=== PATIENT | female | born 1965 | race Two or more races ===

== ENCOUNTER 2016-09-18 16:00 | Inpatient (IN) | payer OTHER ==
[2016-09-18 18:17] VITALS: BMI 62.8
[2016-09-18] MEDS ORDERED: ACETAMINOPHEN 325 MG TABLET (FP) PO PRN (20:10)
[2016-09-18] MEDS ORDERED: MAGNESIUM HYDROX 2400MG/30ML ORAL SUSPENSION 30 ML CUP PO PRN (20:10)
[2016-09-18] MEDS ORDERED: chlordiazePOXIDE HCL 25 MG CAPSULE PO PRN (20:10)
[2016-09-18] MEDS ORDERED: hydrOXYzine PAMOATE 50 MG CAPSULE (FP) PO PRN (20:10)
[2016-09-18] MEDS ORDERED: MAG HYDROX/AL HYDROX/SIMETH 30 ML UNIT-DOSE CUP PO PRN (20:10)
[2016-09-18] MEDS ORDERED: NICOTINE POLACRILEX 2 MG GUM BC PRN (20:10)
[2016-09-18] MEDS ORDERED: P-EPHED 60MG/TRIPROLIDI 2.5MG TABLET PO PRN (20:10)
[2016-09-18] MEDS ORDERED: MAGNESIUM CITRATE 300 ML BOTTLE PO PRN (20:10)
[2016-09-18] MEDS ORDERED: LOPERAMIDE HCL 2 MG CAPSULE PO PRN (20:10)
[2016-09-18] MEDS ORDERED: MENTHOL/PHENOL 1 EACH UD MM PRN (20:10)
[2016-09-18] MEDS ORDERED: IBUPROFEN 400 MG TABLET (FP) PO PRN (20:10)
[2016-09-18] MEDS ORDERED: diphenhydrAMINE HCL 50 MG CAPSULE PO PRN (20:10)
[2016-09-18] MEDS ORDERED: guaiFENesin/D-METHORPHAN HB 10 ML UNIT-DOSE CUPS PO PRN (20:10)
--- NOTE | 2016-09-18 20:10 | HP ---
[id number] Extend Anxiety: 4-Mod. Anxious/Guarded Agitation: 4-Moderately Restless Paroxysmal Sweats: 1-Minimal Palms Moist Orientation: 0-Oriented Tacttile Disturbances: 0-None Auditory Disturbances: 3-Moderate Harsh/Frighten Visual Disturbances: 0-None Headache: 1-Very Mild CIWA-Ar Total Score: 19 Admission ROS BHS - HPI Chief Complaint: withdrawal sx Allergies/Adverse Reactions: Allergies Allergy/AdvReac Type Severity Reaction Status Date / Time No Known Allergies Allergy Verified 09/18/16 19:43 History of Present Illness: 51 years old female with long history of alcohol cocaine nicotine dependence, hiv, asthma, diabetes ii neuropathy, bipolar ii and positive ppd is admitted to detox Exam Limitations: No Limitations - Ebola screening Have you traveled outside of the country in the last 21 days: No Have you had contact with anyone from an Ebola affected area: No Have you been sick,other than usual withdrawal symptoms: No Do you have a fever: No - Review of Systems Constitutional: Chills, Changes in sleep, Weight Stable EENT: reports: Other (eye glasses) Respiratory: reports: No Symptoms reported Cardiac: reports: No Symptoms Reported GI: reports: Nausea, Poor Fluid Intake, Abdominal cramping : reports: No Symptoms Reported Musculoskeletal: reports: No Symptoms Reported Integumentary: reports: No Symptoms Reported Neuro: reports: Tremors Endocrine: reports: No Symptoms Reported Hematology: reports: No Symptoms Reported Psychiatric: reports: Judgement Intact, Orientated x3, Anxious, Depressed Other Systems: Reviewed and Negative Patient History - Patient Medical History Hx Anemia: No Hx Asthma: Yes Hx Chronic Obstructive Pulmonary Disease (COPD): No Hx Cancer: No Hx Cardiac Disorders: No Hx Congestive Heart Failure: No Hx Hypertension: Yes Hx Hypercholesterolemia: No Hx Pacemaker: No HX Cerebrovascular Accident: No Hx Seizures: No Hx Dementia: No Hx Diabetes: Yes (ON METFORMIN) Hx Gastrointestinal Disorders: No Hx Liver Disease: No Hx Genitourinary Disorders: No Hx Sexually Transmitted Disorders: No (HIV) Hx Renal Disease (ESRD): No Hx Thyroid Disease: No Hx Human Immunodeficiency Virus (HIV): Yes (1996-last cd4 989,vl-undetectable) Hx Hepatitis C: No Hx Depression: No Hx Suicide Attempt: No Hx Bipolar Disorder: Yes Hx Schizophrenia: No - Patient Surgical History Past Surgical History: Yes Hx Neurologic Surgery: No Hx Cataract Extraction: No Hx Cardiac Surgery: No Hx Lung Surgery: No Hx Breast Surgery: No Hx Breast Biopsy: No Hx Abdominal Surgery: Yes (hernia 2014) Hx Appendectomy: No Hx Cholecystectomy: No Hx Genitourinary Surgery: No Hx Section: No Hx Orthopedic Surgery: No Anesthesia Reaction: No - PPD History Previous Implant?: Yes Documented Results: Positive w/proof Implanted On Prior [facility] Admission?: No PPD to be Administered?: No - Reproductive History Patient is a Female of Child Bearing Age (11 -55 yrs old): Yes Last Menstrual Period: 08/18/12 Patient : No - Smoking Cessation Smoking history: Current every day smoker Have you smoked in the past 12 months: Yes Aproximately how many cigarettes per day: 10 Cigars Per Day: 0 Hx Chewing Tobacco Use: No Initiated information on smoking cessation: Yes 'Breaking Loose' booklet given: 09/18/16 - Substance & Tx. History Hx Alcohol Use: Yes Hx Substance Use: Yes Substance Use Type: Alcohol, Cocaine Hx Substance Use Treatment: Yes - Substances Abused Alcohol Route: Oral Frequency: Daily Amount used: liquor- 3 pts, beer-2 six pc, wine 2 liter Age of first use: 23 Date of Last Use: 09/18/16 Cocaine Route: Inhalation Frequency: Daily Amount used: $100 Age of first use: 23 Date of Last Use: 09/17/16 Family Disease History - Family Disease History Family Disease History: Diabetes: Father, Mother Admission Physical Exam BHS - Vital Signs Vital Signs: Vital Signs - 24 hr 09/18/16 18:15 Temperature 98.2 F Pulse Rate 109 H Respiratory 22 Rate Blood Pressure 127/71 - Physical General Appearance: Yes: Appropriately Dressed, Moderate Distress, Obese, Tremorous, Irritable, Sweating, Anxious HEENTM: Yes: Hearing grossly Normal, Normal ENT Inspection, Normocephalic, Normal Voice Respiratory: Yes: Chest Non-Tender, Lungs Clear, Normal Breath Sounds, No Respiratory Distress, No Accessory Muscle Use Neck: Yes: Supple, Trachea in good position Breast: Yes: Breasts Symetrical Cardiology: Yes: Regular Rhythm, S1, S2, Tachycardia Abdominal: Yes: Non Tender, Soft Genitourinary: Yes: Within Normal Limits Back: Yes: Normal Inspection Musculoskeletal: Yes: full range of Motion, Gait Steady Extremities: Yes: Normal Inspection, Normal Range of Motion, Non-Tender, Tremors Neurological: Yes: Fully Oriented, Alert, Motor Strength 5/5, Normal Response Integumentary: Yes: Warm Lymphatic: Yes: Within Normal Limits - Diagnostic (1) Asthma Current Visit: Yes Status: Chronic (2) DM Diabetes mellitus type 2 Current Visit: Yes Status: Chronic (3) Essential hypertension Current Visit: Yes Status: Chronic (4) Human immunodeficiency virus infection Current Visit: Yes Status: Chronic (5) Nicotine dependence Current Visit: Yes Status: Chronic (6) Obesity Current Visit: Yes Status: Chronic (7) Positive PPD, treated Current Visit: Yes Status: Resolved Cleared for Admission [facility] - Detox or Rehab [facility] Level of Care: Medically Managed Detox Regimen/Protocol: Librium [facility] Breath Alcohol Content Breath Alcohol Content: 0 Urine Pregancy Test - Result Urine Test Results: Negative- NO Line Present Urine Drug Screen - Results Drug Screen Negative: No Urine Drug Screen Results: JENNIFER-Cocaine
[2016-09-18] MEDS ORDERED: ALBUTEROL SO4 6.7 GM HFA INHALER IH PRN (20:14)
[2016-09-18] MEDS ORDERED: GABAPENTIN 100 MG CAPSULE (FP) PO SCH (22:00)
[2016-09-18] MEDS: MONTELUKAST NA 10 MG TABLET PO SCH (22:54)
[2016-09-18] MEDS: THIAMINE HCL 100 MG TABLET (FP) PO SCH (22:54)
[2016-09-18] MEDS: GABAPENTIN 300 MG CAPSULE (FP) PO SCH (22:54)
[2016-09-18] MEDS: ATORVASTATIN CA 20 MG TABLET (FP) PO SCH (22:54)
[2016-09-18] MEDS: chlordiazePOXIDE HCL 25 MG CAPSULE PO SCH (22:54)
[2016-09-19] MEDS: GABAPENTIN 300 MG CAPSULE (FP) PO SCH (05:54)
[2016-09-19] MEDS: chlordiazePOXIDE HCL 25 MG CAPSULE PO SCH ×4 (05:54→22:26)
[2016-09-19] MEDS: sitaGLIPtin PHOSPHATE 50 MG TABLET PO SCH (08:23)
[2016-09-19] MEDS: metFORMIN HCL 500 MG TABLET (FP) PO SCH ×2 (08:23→17:50)
--- NOTE | 2016-09-19 09:00 | CONSULT ---
[facility] Psychiatric Consult - Data Date of interview: 09/19/16 Admission source: [facility] Identifying data: This ios 51 years old female with morbid Obesity intoxiocated with : Alcohol, Cocaine and Nicotine Substance Abuse History: - Smoking Cessation. Smoking history: Current every day smoker. Have you smoked in the past 12 months: Yes. Aproximately how many cigarettes per day: 10. Cigars Per Day: 0. Hx Chewing Tobacco Use: No. Initiated information on smoking cessation: Yes. 'Breaking Loose' booklet given : 09/18/16. - Substance & Tx. History. Hx Alcohol Use: Yes. Hx Substance Use : Yes. Substance Use Type: Alcohol, Cocaine. Hx Substance Use Treatment: Yes. - Substances Abused. Alcohol. Route: Oral. Frequency: Daily. Amount used: liquor- 3 pts, beer-2 six pc, wine 2 liter. Age of first use: 23. Date of Last Use: 09/18/16. Cocaine. Route: Inhalation. Frequency: Daily. Amount used: $100. Age of first use: 23. Date of Last Use: 09/17/16 Medical History: Morbid Obesity, Asthma, DM-2, HTN, HIV, PPD+History, Psychiatric History: Patient reports history of ndepression and insomnia, reports taking prior to admission: Trazodone 50mg po qhs. Gabapentin 100mg po bid Physical/Sexual Abuse/Trauma History: Denies Additional Comment: Trazodone 50mg po qhs. Gabapentin 100mg po bid Mental Status Exam - Mental Status Exam Alert and Oriented to: Person Cognitive Function: Fair Patient Appearance: Unkempt Mood: Depressed Affect: Mood Congruent Patient Behavior: Cooperative Speech Pattern: Appropriate Voice Loudness: Mildly Soft/Quiet Thought Process: Circumstantial Thought Disorder: Being Controlled Hallucinations: Denies Suicidal Ideation: Denies Homicidal Ideation: Denies Insight/Judgement: Fair Appetite: Weight gain Muscle strength/Tone: Mild Hypotonicity Gait/Station: Shuffling Additional Comments: Trazodone 50mg po qhs. Gabapentin 100mg po bid Psychiatric Findings - Problem List ([place] 1, 2,3) (1) Nicotine dependence Current Visit: Yes Status: Acute (2) Obesity Current Visit: Yes Status: Chronic (3) Alcohol dependence Current Visit: No Status: Active (4) Cocaine dependence Current Visit: No Status: Active (5) Drug-induced mood disorder Current Visit: Yes Status: Acute - Initial Treatment Plan Initial Treatment Plan: Trazodone 50mg po qhs. Gabapentin 100mg po bid
[2016-09-19] MEDS: ATAZANAVIR SO4 300 MG CAPSULE PO SCH (10:29)
[2016-09-19] MEDS: HYDROCHLOROTHIAZIDE 12.5 MG CAPSULE (FP) PO SCH (10:30)
[2016-09-19] MEDS: LISINOPRIL 5 MG TABLET (FP) PO SCH (10:30)
[2016-09-19] MEDS: PRENATAL VITAMINS W/ FOLIC ACID TABLET (FP) PO SCH (10:30)
[2016-09-19] MEDS: RITONAVIR 100 MG TABLET PO SCH (10:30)
[2016-09-19] MEDS: NICOTINE 14 MG/24 HOURS TOPICAL PATCH TD SCH (10:30)
[2016-09-19] MEDS: GABAPENTIN 100 MG CAPSULE (FP) PO SCH ×2 (10:30→22:25)
[2016-09-19 10:40] LABS: ALBUMIN 3.3 g/dl (3.4-5.0); ANION GAP 7 (8-16); CALCIUM 8.6 mg/dL (8.5-10.1); CO2 30 mmol/L (21-32); COCKROFT - GAULT 247.1205; CREATININE 0.7 mg/dL (0.55-1.02); GLUCOSE,RANDOM 268 mg/dL (74-106); SGOT/AST 12 U/L (15-37)
[2016-09-19 10:43] LABS: ALK PHOS 81 U/L (45-117); BILIRUBIN,TOTAL 1.1 mg/dL (0.2-1.0); SGPT/ALT 18 U/L (12-78); TOT PROT 7.1 g/dl (6.4-8.2)
[2016-09-19 10:54] LABS: MCH 29.2 pg (25.7-33.7); MCHC 33.5 g/dl (32.0-36.0); MEAN CELL VOLUME 87.3 fl (80-96); MEAN PLT VOLUME 7.8 fl (7.5-11.1); PLATELET COUNT 321 K/MM3 (134-434); RDW 16.9 % (11.6-15.6); WHITE BLOOD COUNT 9.2 K/mm3 (4.0-10.0)
[2016-09-19] MEDS: EMTRICITABINE 200MG/TENOFOVIR 300MG PO SCH (11:24)
[2016-09-19 11:49] LABS: URINE APPEARANCE CLEAR; URINE BILIRUBIN NEGATIVE (NEGATIVE); URINE BLOOD NEGATIVE (NEGATIVE); URINE COLOR YELLOW; URINE GLUCOSE (UA) 3+ (NEGATIVE); URINE KETONE NEGATIVE (NEGATIVE); URINE LEUK ESTERASE NEGATIVE (NEGATIVE); URINE NITRITE NEGATIVE (NEGATIVE); URINE PROTEIN NEGATIVE (NEGATIVE); URINE UROBILINOGEN NEGATIVE E.U./dl (0.2-1.0)
--- NOTE | 2016-09-19 12:03 | PN ---
S CIWA - CIWA Score Nausea/Vomitin Muscle Tremors: 3 Anxiety: 3 Agitation: 3 Paroxysmal Sweats: 3 Orientation: 0-Oriented Tacttile Disturbances: 2-Mild Itch/Numbness/Burn Auditory Disturbances: 0-None Visual Disturbances: 0-None Headache: 0-None Present CIWA-Ar Total Score: 16 BHS Progress Note (SOAP) Subjective: INTERRUPTED SLEEP, SWEATS , SHAKES Objective: 09/19/16 12:01 Vital Signs Temperature 97.7 F 09/19/16 06:00 Pulse Rate 82 09/19/16 06:00 Respiratory Rate 18 09/19/16 06:00 Blood Pressure 127/71 09/19/16 06:00 O2 Sat by Pulse Oximetry (%) Laboratory Tests 09/18/16 09/19/16 09/19/16 19:36 05:51 07:00 WBC 9.2 RBC 3.82 Hgb 11.2 D Hct 33.4 MCV 87.3 MCHC 33.5 RDW 16.9 H Plt Count 321 MPV 7.8 Sodium Potassium Chloride Carbon Dioxide Anion Gap BUN Creatinine Creat Clearance w eGFR POC Glucometer 276 237 Random Glucose Calcium Total Bilirubin AST ALT Alkaline Phosphatase Total Protein Albumin Urine Color Urine Appearance Urine pH Ur Specific [place] Urine Protein Urine Glucose (UA) Urine Ketones Urine Blood Urine Nitrite Urine Bilirubin Urine Urobilinogen Ur Leukocyte Esterase 09/19/16 09/19/16 07:00 07:00 WBC RBC Hgb Hct MCV MCHC RDW Plt Count MPV Sodium 136 Potassium 4.0 Chloride 99 Carbon Dioxide 30 Anion Gap 7 L BUN 8 Creatinine 0.7 Creat Clearance w eGFR > 60 POC Glucometer Random Glucose 268 H D Calcium 8.6 Total Bilirubin 1.1 H AST 12 L ALT 18 D Alkaline Phosphatase 81 Total Protein 7.1 Albumin 3.3 L Urine Color Yellow Urine Appearance Clear Urine pH 5.0 Ur Specific [place] 1.030 Urine Protein Negative Urine Glucose (UA) 3+ H Urine Ketones Negative Urine Blood Negative Urine Nitrite Negative Urine Bilirubin Negative Urine Urobilinogen Negative Ur Leukocyte Esterase Negative pt aox3 in nad ambulating 09/19/16 12:02 10/11/16 16:07 Assessment: 09/19/16 12:02 withdrawal sx's dm morbid obesity 10/11/16 16:07 Plan: cont. detox increase fluids cont to monitor bgm
--- NOTE | 2016-09-19 13:12 | EKG ---
Test Reason : Blood Pressure : / mmHG Vent. Rate : 090 BPM Atrial Rate : 090 BPM P-R Int : 142 ms QRS Dur : 086 ms QT Int : 372 ms P-R-T Axes : 068 066 055 degrees QTc Int : 455 ms NORMAL SINUS RHYTHM NORMAL ECG NO PREVIOUS ECGS AVAILABLE Confirmed by SANDY BANKS, RODOLFO ([id number]) on 09/19/2016 1:12:18 PM Referred By: Confirmed By:RODOLFO DELGADO MD
[2016-09-19] MEDS: MONTELUKAST NA 10 MG TABLET PO SCH (22:25)
[2016-09-19] MEDS: THIAMINE HCL 100 MG TABLET (FP) PO SCH (22:25)
[2016-09-19] MEDS: ATORVASTATIN CA 20 MG TABLET (FP) PO SCH (22:25)
[2016-09-19] MEDS: traZODone HCL 50 MG TABLET (FP) PO SCH (22:26)
[2016-09-20] MEDS: metFORMIN HCL 500 MG TABLET (FP) PO SCH ×2 (06:31→17:21)
[2016-09-20] MEDS: chlordiazePOXIDE HCL 25 MG CAPSULE PO SCH ×3 (06:33→17:21)
[2016-09-20] MEDS: sitaGLIPtin PHOSPHATE 50 MG TABLET PO SCH (07:45)
[2016-09-20] MEDS ORDERED: FLUCONAZOLE 50 MG TABLET PO ONE (09:33)
[2016-09-20] MEDS: GABAPENTIN 100 MG CAPSULE (FP) PO SCH ×2 (11:30→22:59)
[2016-09-20] MEDS: PRENATAL VITAMINS W/ FOLIC ACID TABLET (FP) PO SCH (11:30)
[2016-09-20] MEDS: ATAZANAVIR SO4 300 MG CAPSULE PO SCH (11:30)
[2016-09-20] MEDS: LISINOPRIL 5 MG TABLET (FP) PO SCH (11:30)
[2016-09-20] MEDS: HYDROCHLOROTHIAZIDE 12.5 MG CAPSULE (FP) PO SCH (11:30)
[2016-09-20] MEDS: EMTRICITABINE 200MG/TENOFOVIR 300MG PO SCH (11:31)
[2016-09-20] MEDS: RITONAVIR 100 MG TABLET PO SCH (11:31)
[2016-09-20] MEDS: NICOTINE 14 MG/24 HOURS TOPICAL PATCH TD SCH (11:31)
--- NOTE | 2016-09-20 11:57 | PN ---
S CIWA - CIWA Score Nausea/Vomitin Muscle Tremors: 2 Anxiety: 3 Agitation: 2 Paroxysmal Sweats: 3 Orientation: 0-Oriented Tacttile Disturbances: 2-Mild Itch/Numbness/Burn Auditory Disturbances: 0-None Visual Disturbances: 0-None Headache: 0-None Present CIWA-Ar Total Score: 14 S Progress Note (SOAP) Subjective: INTERRUPTED SLEEP SSWEATS, C/O VAG ITCH Objective: 09/20/16 11:55 Vital Signs Temperature 97.9 F 09/20/16 10:02 Pulse Rate 95 H 09/20/16 10:02 Respiratory Rate 16 09/20/16 10:02 Blood Pressure 119/79 09/20/16 10:02 O2 Sat by Pulse Oximetry (%) Laboratory Tests 09/18/16 09/19/16 09/19/16 19:36 05:51 07:00 WBC 9.2 RBC 3.82 Hgb 11.2 D Hct 33.4 MCV 87.3 MCHC 33.5 RDW 16.9 H Plt Count 321 MPV 7.8 Sodium Potassium Chloride Carbon Dioxide Anion Gap BUN Creatinine Creat Clearance w eGFR POC Glucometer 276 237 Random Glucose Calcium Total Bilirubin AST ALT Alkaline Phosphatase Total Protein Albumin Urine Color Urine Appearance Urine pH Ur Specific [place] Urine Protein Urine Glucose (UA) Urine Ketones Urine Blood Urine Nitrite Urine Bilirubin Urine Urobilinogen Ur Leukocyte Esterase RPR Titer 09/19/16 09/19/16 09/19/16 07:00 07:00 07:00 WBC RBC Hgb Hct MCV MCHC RDW Plt Count MPV Sodium 136 Potassium 4.0 Chloride 99 Carbon Dioxide 30 Anion Gap 7 L BUN 8 Creatinine 0.7 Creat Clearance w eGFR > 60 POC Glucometer Random Glucose 268 H D Calcium 8.6 Total Bilirubin 1.1 H AST 12 L ALT 18 D Alkaline Phosphatase 81 Total Protein 7.1 Albumin 3.3 L Urine Color Yellow Urine Appearance Clear Urine pH 5.0 Ur Specific [place] 1.030 Urine Protein Negative Urine Glucose (UA) 3+ H Urine Ketones Negative Urine Blood Negative Urine Nitrite Negative Urine Bilirubin Negative Urine Urobilinogen Negative Ur Leukocyte Esterase Negative RPR Titer Nonreactive 09/19/16 09/20/16 16:41 06:29 WBC RBC Hgb Hct MCV MCHC RDW Plt Count MPV Sodium Potassium Chloride Carbon Dioxide Anion Gap BUN Creatinine Creat Clearance w eGFR POC Glucometer 160 167 Random Glucose Calcium Total Bilirubin AST ALT Alkaline Phosphatase Total Protein Albumin Urine Color Urine Appearance Urine pH Ur Specific [place] Urine Protein Urine Glucose (UA) Urine Ketones Urine Blood Urine Nitrite Urine Bilirubin Urine Urobilinogen Ur Leukocyte Esterase RPR Titer 10/11/16 16:09 PT AOX3 IN NAD AMBULATING Assessment: 09/20/16 11:56 withdrawal sx's DM yeast infection 10/11/16 16:09 Plan: cont. detox increase fluids diflucan 150mg /d
[2016-09-20] MEDS: MONTELUKAST NA 10 MG TABLET PO SCH (22:59)
[2016-09-20] MEDS: chlordiazePOXIDE 5 MG CAPSULE PO SCH (22:59)
[2016-09-20] MEDS: ATORVASTATIN CA 20 MG TABLET (FP) PO SCH (22:59)
[2016-09-20] MEDS: traZODone HCL 50 MG TABLET (FP) PO SCH (22:59)
[2016-09-20] MEDS: THIAMINE HCL 100 MG TABLET (FP) PO SCH (23:00)
[2016-09-21] MEDS: chlordiazePOXIDE 5 MG CAPSULE PO SCH ×3 (06:10→17:14)
[2016-09-21] MEDS: sitaGLIPtin PHOSPHATE 50 MG TABLET PO SCH (07:11)
[2016-09-21] MEDS: metFORMIN HCL 500 MG TABLET (FP) PO SCH ×2 (07:11→17:21)
[2016-09-21] MEDS: NICOTINE 14 MG/24 HOURS TOPICAL PATCH TD SCH (10:00)
[2016-09-21] MEDS: HYDROCHLOROTHIAZIDE 12.5 MG CAPSULE (FP) PO SCH (11:22)
[2016-09-21] MEDS: ATAZANAVIR SO4 300 MG CAPSULE PO SCH (11:22)
[2016-09-21] MEDS: PRENATAL VITAMINS W/ FOLIC ACID TABLET (FP) PO SCH (11:22)
[2016-09-21] MEDS: RITONAVIR 100 MG TABLET PO SCH (11:23)
[2016-09-21] MEDS: EMTRICITABINE 200MG/TENOFOVIR 300MG PO SCH (11:23)
[2016-09-21] MEDS: LISINOPRIL 5 MG TABLET (FP) PO SCH (11:24)
[2016-09-21] MEDS: GABAPENTIN 100 MG CAPSULE (FP) PO SCH ×2 (11:24→22:55)
--- NOTE | 2016-09-21 14:08 | PN ---
BHS Progress Note (SOAP) Subjective: Tremors, H/A. Objective: PT. A & O X 2 (DISORIENTED ABOUT DAY /DATE). PT. OBSERVED AMBULATING ON UNIT. 09/21/16 14:05 Vital Signs Temperature 96.1 F L 09/21/16 14:01 Pulse Rate 95 H 09/21/16 14:01 Respiratory Rate 20 09/21/16 14:01 Blood Pressure 111/78 09/21/16 14:01 O2 Sat by Pulse Oximetry (%) Laboratory Last Values WBC 9.2 K/mm3 (4.0-10.0) 09/19/16 07:00 RBC 3.82 M/mm3 (3.60-5.2) 09/19/16 07:00 Hgb 11.2 GM/dL (10.7-15.3) D 09/19/16 07:00 Hct 33.4 % (32.4-45.2) 09/19/16 07:00 MCV 87.3 fl (80-96) 09/19/16 07:00 MCHC 33.5 g/dl (32.0-36.0) 09/19/16 07:00 RDW 16.9 % (11.6-15.6) H 09/19/16 07:00 Plt Count 321 K/MM3 (134-434) 09/19/16 07:00 MPV 7.8 fl (7.5-11.1) 09/19/16 07:00 Sodium 136 mmol/L (136-145) 09/19/16 07:00 Potassium 4.0 mmol/L (3.5-5.1) 09/19/16 07:00 Chloride 99 mmol/L (98-107) 09/19/16 07:00 Carbon Dioxide 30 mmol/L (21-32) 09/19/16 07:00 Anion Gap 7 (8-16) L 09/19/16 07:00 BUN 8 mg/dL (7-18) 09/19/16 07:00 Creatinine 0.7 mg/dL (0.55-1.02) 09/19/16 07:00 Creat Clearance w eGFR > 60 (>60) 09/19/16 07:00 POC Glucometer 148 UNITS (()) 09/21/16 06:06 Random Glucose 268 mg/dL (74-106) H D 09/19/16 07:00 Calcium 8.6 mg/dL (8.5-10.1) 09/19/16 07:00 Total Bilirubin 1.1 mg/dL (0.2-1.0) H 09/19/16 07:00 AST 12 U/L (15-37) L 09/19/16 07:00 ALT 18 U/L (12-78) D 09/19/16 07:00 Alkaline Phosphatase 81 U/L (45-117) 09/19/16 07:00 Total Protein 7.1 g/dl (6.4-8.2) 09/19/16 07:00 Albumin 3.3 g/dl (3.4-5.0) L 09/19/16 07:00 Urine Color Yellow 09/19/16 07:00 Urine Appearance Clear 09/19/16 07:00 Urine pH 5.0 (5.0-8.0) 09/19/16 07:00 Ur Specific [place] 1.030 (1.001-1.035) 09/19/16 07:00 Urine Protein Negative (NEGATIVE) 09/19/16 07:00 Urine Glucose (UA) 3+ (NEGATIVE) H 09/19/16 07:00 Urine Ketones Negative (NEGATIVE) 09/19/16 07:00 Urine Blood Negative (NEGATIVE) 09/19/16 07:00 Urine Nitrite Negative (NEGATIVE) 09/19/16 07:00 Urine Bilirubin Negative (NEGATIVE) 09/19/16 07:00 Urine Urobilinogen Negative E.U./dl (0.2-1.0) 09/19/16 07:00 Ur Leukocyte Esterase Negative (NEGATIVE) 09/19/16 07:00 RPR Titer Nonreactive (NONREACTIVE) 09/19/16 07:00 LABS NOTED. 09/21/16 14:06 Assessment: 09/21/16 14:07 WITHDRAWAL SYMPTOMS. Plan: CONTINUE DETOX. ADVISED PATIENT TO FOLLOW-UP WITH [facility] / REHAB MEDICAL PROVIDER AFTER DISCHARGE FROM DETOX FOR GENERAL MEDICAL ASSESSMENT AND FOR ABNORMAL ADMISSION LAB VALUES.
[2016-09-21] MEDS ORDERED: MICONAZOLE NITRATE 100 MG SUPP SUPP.VAG PV SCH (22:00)
[2016-09-21] MEDS: THIAMINE HCL 100 MG TABLET (FP) PO SCH (22:55)
[2016-09-21] MEDS: traZODone HCL 50 MG TABLET (FP) PO SCH (22:55)
[2016-09-21] MEDS: MONTELUKAST NA 10 MG TABLET PO SCH (22:55)
[2016-09-21] MEDS: ATORVASTATIN CA 20 MG TABLET (FP) PO SCH (22:55)
[2016-09-21] MEDS: chlordiazePOXIDE HCL 10 MG CAPSULE PO SCH (23:15)
[2016-09-22 07:10] VITALS: TEMP 97.7
[2016-09-22] MEDS: metFORMIN HCL 500 MG TABLET (FP) PO SCH (07:22)
[2016-09-22] MEDS: sitaGLIPtin PHOSPHATE 50 MG TABLET PO SCH (07:23)
[2016-09-22] MEDS: chlordiazePOXIDE HCL 10 MG CAPSULE PO SCH (07:23)
[2016-09-22] MEDS: ATAZANAVIR SO4 300 MG CAPSULE PO SCH (09:49)
[2016-09-22] MEDS: RITONAVIR 100 MG TABLET PO SCH (09:49)
[2016-09-22] MEDS: EMTRICITABINE 200MG/TENOFOVIR 300MG PO SCH (09:49)
[2016-09-22] MEDS: PRENATAL VITAMINS W/ FOLIC ACID TABLET (FP) PO SCH (09:50)
[2016-09-22] MEDS: HYDROCHLOROTHIAZIDE 12.5 MG CAPSULE (FP) PO SCH (09:50)
[2016-09-22] MEDS: LISINOPRIL 5 MG TABLET (FP) PO SCH (09:50)
[2016-09-22] MEDS: GABAPENTIN 100 MG CAPSULE (FP) PO SCH (09:50)
[2016-09-22 11:07] VITALS: BP 152/88; PULSE 88
--- NOTE | 2016-09-22 18:49 | DS ---
[facility] Detox Discharge Summary Admission Date: 09/18/16 Discharge Date: 09/22/16 - History Present History: Alcohol Dependence Additional Comments: ADVISED PATIENT TO FOLLOW-UP WITH [facility] / REHAB MEDICAL PROVIDER AFTER DISCHARGE FROM DETOX FOR GENERAL MEDICAL ASSESSMENT AND FOR ABNORMAL ADMISSION LAB VALUES. Pertinent Past History: Asthma, HTN, DM, HIV, History of Positive PPD. - Physical Exam Results Vital Signs: Vital Signs Temperature 97.7 F 09/22/16 11:06 Pulse Rate 88 09/22/16 11:06 Respiratory Rate 18 09/22/16 11:06 Blood Pressure 152/88 09/22/16 11:06 O2 Sat by Pulse Oximetry (%) Pertinent Admission Physical Exam Findings: WITHDRAWAL SYHMPTOMS. Laboratory Last Values WBC 9.2 K/mm3 (4.0-10.0) 09/19/16 07:00 RBC 3.82 M/mm3 (3.60-5.2) 09/19/16 07:00 Hgb 11.2 GM/dL (10.7-15.3) D 09/19/16 07:00 Hct 33.4 % (32.4-45.2) 09/19/16 07:00 MCV 87.3 fl (80-96) 09/19/16 07:00 MCHC 33.5 g/dl (32.0-36.0) 09/19/16 07:00 RDW 16.9 % (11.6-15.6) H 09/19/16 07:00 Plt Count 321 K/MM3 (134-434) 09/19/16 07:00 MPV 7.8 fl (7.5-11.1) 09/19/16 07:00 Sodium 136 mmol/L (136-145) 09/19/16 07:00 Potassium 4.0 mmol/L (3.5-5.1) 09/19/16 07:00 Chloride 99 mmol/L (98-107) 09/19/16 07:00 Carbon Dioxide 30 mmol/L (21-32) 09/19/16 07:00 Anion Gap 7 (8-16) L 09/19/16 07:00 BUN 8 mg/dL (7-18) 09/19/16 07:00 Creatinine 0.7 mg/dL (0.55-1.02) 09/19/16 07:00 Creat Clearance w eGFR > 60 (>60) 09/19/16 07:00 POC Glucometer 147 UNITS (()) 09/22/16 07:17 Random Glucose 268 mg/dL (74-106) H D 09/19/16 07:00 Calcium 8.6 mg/dL (8.5-10.1) 09/19/16 07:00 Total Bilirubin 1.1 mg/dL (0.2-1.0) H 09/19/16 07:00 AST 12 U/L (15-37) L 09/19/16 07:00 ALT 18 U/L (12-78) D 09/19/16 07:00 Alkaline Phosphatase 81 U/L (45-117) 09/19/16 07:00 Total Protein 7.1 g/dl (6.4-8.2) 09/19/16 07:00 Albumin 3.3 g/dl (3.4-5.0) L 09/19/16 07:00 Urine Color Yellow 09/19/16 07:00 Urine Appearance Clear 09/19/16 07:00 Urine pH 5.0 (5.0-8.0) 09/19/16 07:00 Ur Specific [place] 1.030 (1.001-1.035) 09/19/16 07:00 Urine Protein Negative (NEGATIVE) 09/19/16 07:00 Urine Glucose (UA) 3+ (NEGATIVE) H 09/19/16 07:00 Urine Ketones Negative (NEGATIVE) 09/19/16 07:00 Urine Blood Negative (NEGATIVE) 09/19/16 07:00 Urine Nitrite Negative (NEGATIVE) 09/19/16 07:00 Urine Bilirubin Negative (NEGATIVE) 09/19/16 07:00 Urine Urobilinogen Negative E.U./dl (0.2-1.0) 09/19/16 07:00 Ur Leukocyte Esterase Negative (NEGATIVE) 09/19/16 07:00 RPR Titer Nonreactive (NONREACTIVE) 09/19/16 07:00 LABS NOTED. - Treatment Hospital Course: Detox Protocol Followed, Detoxed Safely, Responded well, Discharged Condition Good, Rehab Referral Accepted Patient has Accepted a Rehab Referral to: YES - [facility] - Medication Discharge Medications: Ambulatory Orders Albuterol Sulfate Inhaler - [Ventolin HFA Inhaler -] 2 inh IH Q4H PRN 10/02/12 Atazanavir [Reyataz -] 300 mg PO DAILY 10/02/12 Emtricitabine/Tenofovir [Truvada -] 1 tab PO DAILY 10/02/12 Gabapentin [Neurontin -] 100 mg PO BID 10/02/12 Hydrochlorothiazide [Hctz] 12.5 mg PO DAILY 10/02/12 Metformin HCl 500 mg PO BID 10/02/12 Pataday 2 1000s OU BID 10/02/12 Ritonavir [Norvir] 100 mg PO DAILY 10/02/12 Sitagliptin Phosphate [Januvia] 50 mg PO DAILY 10/02/12 Trazodone HCl 50 mg PO HS 10/02/12 Valtrex 1,000 mg PO DAILY 10/02/12 Gabapentin 100 gm MC BID #60 powder 09/19/16 Trazodone HCl 50 mg PO HS #30 tablet 09/19/16 - Diagnosis (1) Cocaine dependence Status: Acute (2) h/o genital herpes Status: Chronic (3) Drug-induced mood disorder Status: Acute (4) Asthma Status: Chronic (5) DM Diabetes mellitus type 2 Status: Chronic (6) Essential hypertension Status: Chronic (7) Human immunodeficiency virus infection Status: Chronic (8) Nicotine dependence Status: Chronic (9) Obesity Status: Chronic (10) Alcohol dependence with uncomplicated withdrawal Status: Acute - AMA Did Patient Leave Against Medical Advice: No
== END 2016-09-22 12:09 | disposition home or self-care (01) | DRG 774 ==
LOC: YASAS 16:00 → Y6N 19:44
PROVIDERS: ADMIT Internal Medicine Addiction Medicine; ATTEND Internal Medicine Addiction Medicine
PROC: HZ2ZZZZ Detoxification Services for Substance Abuse Treatment (ICD-10-PCS; principal; 2016-09-22)
DX: F10.20 Alcohol dependence, uncomplicated (principal); F14.20 Cocaine dependence, uncomplicated; F17.210 Nicotine dependence, cigarettes, uncomplicated; F19.24 Other psychoactive substance dependence with psychoactive substance-induced mood disorder; Z21 Asymptomatic human immunodeficiency virus [HIV] infection status; I10 Essential (primary) hypertension; J45.20 Mild intermittent asthma, uncomplicated; E11.9 Type 2 diabetes mellitus without complications; Z79.84 Long term (current) use of oral hypoglycemic drugs; F31.81 Bipolar II disorder; R76.11 Nonspecific reaction to tuberculin skin test without active tuberculosis; E66.01 Morbid (severe) obesity due to excess calories; Z68.44 Body mass index [BMI] 60.0-69.9, adult
CPT/HCPCS: 36415; 71020-TC; 80053; 81003; 85027; 86593; 93005; 93010

== ENCOUNTER 2018-05-06 12:43 | Inpatient (IN) | payer OTHER ==
[2018-05-06 13:37] VITALS: BMI 54.6
--- NOTE | 2018-05-06 16:03 | HP ---
CIWA Score Nausea/Vomitin Muscle Tremors: 2 Anxiety: 2 Agitation: 2 Paroxysmal Sweats: 1-Minimal Palms Moist Orientation: 0-Oriented Tacttile Disturbances: 1-Very Mild Itch/Numbness Auditory Disturbances: 1-Very Mild Visual Disturbances: 0-None Headache: 2-Mild CIWA-Ar Total Score: 13 - Admission Criteria [facility] Guidelines: Admission for Medically Managed Detox: Requires at least one of the followin. CIWA greater than 12 2. Seizures within the past 24 hours 3. Delirium tremens within the past 24 hours 4. Hallucinations within the past 24 hours 5. Acute intervention needed for co occurring medical disorder 6. Acute intervention needed for co occurring psychiatric disorder 7. Severe withdrawal that cannot be handled at a lower level of care (continued vomiting, continued diarrhea, abnormal vital signs) requiring intravenous medication and/or fluids 8. Patient presents the following: CIWA greater than 12 Admission Criteria Met: Admission criteria met Admission ROS S - HPI Chief Complaint: i need help to stop drinking alcohol,cocaine and marijuana Allergies/Adverse Reactions: Allergies Allergy/AdvReac Type Severity Reaction Status Date / Time No Known Allergies Allergy Verified 05/06/18 15:34 History of Present Illness: this 52 years old female with alcohol,cocaine and marijuana dependence,,seeking detox,withdrawal,,lst detox [facility] in 2016 history of hypertension,type 2 dm,asthma, hiv since 1996 non compliance umbilical hernia repair in 2013 tubal ligation 2002 longest period of sobriety 2 years Exam Limitations: No Limitations - Ebola screening Have you traveled outside of the country in the last 21 days: No Have you had contact with anyone from an Ebola affected area: No Have you been sick,other than usual withdrawal symptoms: No - Review of Systems Constitutional: Loss of Appetite, Malaise, Night Sweats, Changes in sleep, Weakness, Unintentional Wgt. Loss EENT: reports: Nose Congestion Respiratory: reports: No Symptoms reported GI: reports: Nausea, Poor Appetite, Abdominal cramping : reports: No Symptoms Reported Musculoskeletal: reports: Back Pain, Muscle Pain Integumentary: reports: Dryness Neuro: reports: Headache, Tremors Endocrine: reports: No Symptoms Reported Hematology: reports: No Symptoms Reported Psychiatric: reports: No Sypmtoms Reported, Judgement Intact, Mood/Affect Appropiate, Orientated x3, other (schzophrenia) Patient History - Patient Medical History Hx Anemia: No Hx Asthma: Yes Hx Chronic Obstructive Pulmonary Disease (COPD): No Hx Cancer: No Hx Cardiac Disorders: No Hx Congestive Heart Failure: No Hx Hypertension: Yes (on meds.) Hx Hypercholesterolemia: No Hx Pacemaker: No HX Cerebrovascular Accident: No Hx Seizures: No Hx Dementia: No Hx Diabetes: Yes (Type II) Hx Gastrointestinal Disorders: No Hx Liver Disease: No Hx Genitourinary Disorders: No Hx Sexually Transmitted Disorders: No Hx Renal Disease (ESRD): No Hx Thyroid Disease: No Hx Human Immunodeficiency Virus (HIV): Yes (1996-last cd4 989,vl-undetectable, non compliance) Hx Hepatitis C: No Hx Depression: Yes Hx Suicide Attempt: No Hx Bipolar Disorder: Yes Hx Schizophrenia: Yes Other Medical History: no suicidal,no homicidal - Patient Surgical History Past Surgical History: Yes Hx Neurologic Surgery: No Hx Cataract Extraction: No Hx Cardiac Surgery: No Hx Lung Surgery: No Hx Breast Surgery: No Hx Breast Biopsy: No Hx Abdominal Surgery: Yes (umbilical hernia repair in 2013) Hx Appendectomy: No Hx Cholecystectomy: No Hx Genitourinary Surgery: No Hx Section: No Hx Orthopedic Surgery: No Other Surgical History: tubal ligation 2002 Anesthesia Reaction: No - PPD History Previous Implant?: Yes Documented Results: Positive w/o proof Implanted On Prior R Admission?: No PPD to be Administered?: No - Reproductive History Patient is a Female of Child Bearing Age (11 -55 yrs old): Yes Last Menstrual Period: 08/18/12 Patient : No - Smoking Cessation Smoking history: Current every day smoker Have you smoked in the past 12 months: Yes Aproximately how many cigarettes per day: 20 Cigars Per Day: 0 Hx Chewing Tobacco Use: No Initiated information on smoking cessation: Yes 'Breaking Loose' booklet given: 05/06/18 - Substance & Tx. History Hx Alcohol Use: Yes Hx Substance Use: Yes Substance Use Type: Alcohol, Cocaine Hx Substance Use Treatment: Yes ([facility] 2017) - Substances Abused Alcohol Route: Oral Frequency: Daily Amount used: 2 QT LIQUOR OR WINE Age of first use: 17 Date of Last Use: 05/05/18 Crack Route: Smoking Frequency: Daily Amount used: $200 Age of first use: 23 Date of Last Use: 05/05/18 Family Disease History - Family Disease History Family Disease History: Diabetes: Father, Mother Admission Physical Exam [facility] - Vital Signs Vital Signs: Vital Signs - 24 hr 05/06/18 13:35 Temperature 96.7 F L Pulse Rate 93 H Respiratory 18 Rate Blood Pressure 135/75 - Physical General Appearance: Yes: Moderate Distress, Obese, Tremorous, Irritable, Sweating, Anxious HEENTM: Yes: Normal ENT Inspection, RAY, Pharynx Normal Respiratory: Yes: Lungs Clear, Normal Breath Sounds, No Respiratory Distress Neck: Yes: Within Normal Limits, Supple, Trachea in good position Breast: Yes: Breast Exam Deferred Cardiology: Yes: Within Normal Limits, Regular Rhythm, Regular Rate, S1, S2 Abdominal: Yes: Within Normal Limits, Normal Bowel Sounds, Non Tender, Soft Genitourinary: Yes: Within Normal Limits Back: Yes: Muscle Spasm Musculoskeletal: Yes: Back pain, Muscle Pain Extremities: Yes: Tremors Neurological: Yes: 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 II-XII NML intact, Fully Oriented, Alert, Motor Strength 5/5 Integumentary: Yes: Dry Lymphatic: Yes: Within Normal Limits - Diagnostic (1) Alcohol dependence with uncomplicated withdrawal Current Visit: No Status: Acute (2) Cannabis dependence Current Visit: Yes Status: Acute (3) Cocaine dependence Current Visit: No Status: Acute (4) Asthma Current Visit: No Status: Chronic (5) DM Diabetes mellitus type 2 Current Visit: No Status: Chronic (6) Essential hypertension Current Visit: No Status: Chronic (7) Human immunodeficiency virus infection Current Visit: No Status: Chronic (8) Nicotine dependence Current Visit: No Status: Chronic (9) Obesity Current Visit: No Status: Chronic Cleared for Admission [facility] - Detox or Rehab [facility] Level of Care: Medically Managed Detox Regimen/Protocol: Librium [facility] Breath Alcohol Content Breath Alcohol Content: 0 Urine Pregancy Test - Result Urine Test Results: Negative- NO Line Present Urine Drug Screen - Results Drug Screen Negative: No Urine Drug Screen Results: JENNIFER-Cocaine
[2018-05-06] MEDS ORDERED: MAG HYDROX/AL HYDROX/SIMETH 30 ML UNIT-DOSE CUP PO PRN (16:10)
[2018-05-06] MEDS ORDERED: LOPERAMIDE HCL 2 MG CAPSULE PO PRN (16:10)
[2018-05-06] MEDS ORDERED: MAGNESIUM HYDROX 2400MG/30ML ORAL SUSPENSION 30 ML CUP PO PRN (16:10)
[2018-05-06] MEDS ORDERED: IBUPROFEN 400 MG TABLET (FP) PO PRN (16:10)
[2018-05-06] MEDS ORDERED: guaiFENesin/D-METHORPHAN HB 10 ML UNIT-DOSE CUPS PO PRN (16:10)
[2018-05-06] MEDS ORDERED: MAGNESIUM CITRATE 300 ML BOTTLE PO PRN (16:10)
[2018-05-06] MEDS ORDERED: NICOTINE POLACRILEX 2 MG GUM BC PRN (16:10)
[2018-05-06] MEDS ORDERED: chlordiazePOXIDE HCL 25 MG CAPSULE PO PRN (16:10)
[2018-05-06] MEDS ORDERED: MENTHOL/PHENOL 1 EACH UD MM PRN (16:10)
[2018-05-06] MEDS ORDERED: ACETAMINOPHEN 325 MG TABLET (FP) PO PRN (16:10)
[2018-05-06] MEDS ORDERED: P-EPHED 60MG/TRIPROLIDI 2.5MG TABLET PO PRN (16:10)
[2018-05-06] MEDS ORDERED: ALBUTEROL SO4 8 GM HFA INHALER IH PRN (16:12)
[2018-05-06] MEDS: chlordiazePOXIDE HCL 25 MG CAPSULE PO SCH ×2 (18:11→22:32)
[2018-05-06] MEDS: NICOTINE 21 MG/24 HOURS TOPICAL PATCH TD SCH (18:12)
[2018-05-06] MEDS: hydrOXYzine PAMOATE 50 MG CAPSULE (FP) PO PRN (22:32)
[2018-05-06] MEDS: THIAMINE HCL 100 MG TABLET (FP) PO SCH (22:32)
[2018-05-06] MEDS: MELATONIN 5 MG TABLETS PO PRN (22:32)
[2018-05-07] MEDS: chlordiazePOXIDE HCL 25 MG CAPSULE PO SCH ×4 (05:59→22:17)
[2018-05-07] MEDS ORDERED: metFORMIN HCL 500 MG TABLET (FP) PO SCH (07:00)
[2018-05-07] MEDS: LISINOPRIL 10 MG TABLET (FP) PO SCH (10:08)
[2018-05-07] MEDS: PRENATAL VITAMINS W/ FOLIC ACID TABLET (FP) PO SCH (10:08)
[2018-05-07] MEDS: NICOTINE 21 MG/24 HOURS TOPICAL PATCH TD SCH (10:09)
--- NOTE | 2018-05-07 10:51 | PN ---
S CIWA - CIWA Score Nausea/Vomitin-No Nausea/No Vomiting Muscle Tremors: 3 Anxiety: 3 Agitation: 3 Paroxysmal Sweats: 3 Orientation: 0-Oriented Tacttile Disturbances: 0-None Auditory Disturbances: 0-None Visual Disturbances: 0-None Headache: 0-None Present CIWA-Ar Total Score: 12 [facility] Progress Note (SOAP) Subjective: shakes sweats interrupted sleep agitation Objective: 05/07/18 10:50 Vital Signs Temperature 98.0 F 05/07/18 09:57 Pulse Rate 85 05/07/18 09:57 Respiratory Rate 18 05/07/18 09:57 Blood Pressure 116/64 05/07/18 09:57 O2 Sat by Pulse Oximetry (%) Laboratory Tests 05/06/18 05/07/18 15:46 05:58 POC Glucometer 104 117 rest of labs pending aaox3 ambulating no acute distress Assessment: 05/07/18 10:51 withdrawal sx Plan: continue detox increase fluids labs pending
[2018-05-07 11:04] LABS: HEMATOCRIT 35.4 % (32.4-45.2); HEMOGLOBIN 11.3 GM/dL (10.7-15.3); MCH 27.7 pg (25.7-33.7); MEAN CELL VOLUME 86.6 fl (80-96); MEAN PLT VOLUME 7.7 fl (7.5-11.1); PLATELET COUNT 361 K/MM3 (134-434); RBC 4.09 M/mm3 (3.60-5.2); RDW 17.6 % (11.6-15.6); WHITE BLOOD COUNT 9.9 K/mm3 (4.0-10.0)
[2018-05-07 11:25] LABS: ALBUMIN 3.3 g/dl (3.4-5.0); ALK PHOS 78 U/L (45-117); ANION GAP 9 MMOL/L (8-16); BILIRUBIN,TOTAL 0.2 mg/dL (0.2-1); BLOOD UREA NITROGEN 35 mg/dL (7-18); CALCIUM 8.6 mg/dL (8.5-10.1); CHLORIDE 100 mmol/L (98-107); CO2 26 mmol/L (21-32); CREATININE 3.6 mg/dL (0.55-1.3); GLUCOSE,RANDOM 125 mg/dL (74-106); POTASSIUM 4.3 mmol/L (3.5-5.1); SGOT/AST 13 U/L (15-37); SGPT/ALT 13 U/L (13-61); SODIUM 135 mmol/L (136-145); TOT PROT 7.6 g/dl (6.4-8.2)
[2018-05-07] MEDS ORDERED: FLU VACCINE QUAD 60 MCG/0.5 ML (MDV 18-19) IM ONE (12:00)
--- NOTE | 2018-05-07 12:57 | PN ---
[facility] Progress Note Note: Laboratory Tests 05/06/18 05/07/18 05/07/18 15:46 05:58 07:30 WBC 9.9 RBC 4.09 Hgb 11.3 Hct 35.4 MCV 86.6 MCH 27.7 MCHC 32.0 RDW 17.6 H Plt Count 361 MPV 7.7 Sodium Potassium Chloride Carbon Dioxide Anion Gap BUN Creatinine Creat Clearance w eGFR POC Glucometer 104 117 Random Glucose Calcium Total Bilirubin AST ALT Alkaline Phosphatase Total Protein Albumin 05/07/18 07:30 WBC RBC Hgb Hct MCV MCH MCHC RDW Plt Count MPV Sodium 135 L Potassium 4.3 Chloride 100 Carbon Dioxide 26 Anion Gap 9 BUN 35 H Creatinine 3.6 H Creat Clearance w eGFR 13.38 POC Glucometer Random Glucose 125 H Calcium 8.6 Total Bilirubin 0.2 AST 13 L ALT 13 Alkaline Phosphatase 78 Total Protein 7.6 Albumin 3.3 L elevated BUN and creatine metformin d/c labs repeated pt placed on insulin for coverage.
[2018-05-07] MEDS ORDERED: INSULIN (NOVOLOG) ASPART 100 UNITS/ML 10ML VIAL ONE (16:55)
[2018-05-07] MEDS: INSULIN SLIDING SCALE (NOVOLOG) 1 VIAL SQ SCH (16:57)
[2018-05-07] MEDS: THIAMINE HCL 100 MG TABLET (FP) PO SCH (22:17)
[2018-05-08] MEDS: chlordiazePOXIDE HCL 25 MG CAPSULE PO SCH ×2 (06:09→10:25)
[2018-05-08] MEDS: INSULIN SLIDING SCALE (NOVOLOG) 1 VIAL SQ SCH ×2 (06:12→17:40)
[2018-05-08] MEDS: LISINOPRIL 10 MG TABLET (FP) PO SCH (10:25)
[2018-05-08] MEDS: PRENATAL VITAMINS W/ FOLIC ACID TABLET (FP) PO SCH (10:25)
[2018-05-08] MEDS: NICOTINE 21 MG/24 HOURS TOPICAL PATCH TD SCH (10:26)
[2018-05-08 11:23] LABS: ALBUMIN 3.1 g/dl (3.4-5.0); ALK PHOS 73 U/L (45-117); ANION GAP 9 MMOL/L (8-16); BILIRUBIN,TOTAL 0.2 mg/dL (0.2-1); BLOOD UREA NITROGEN 25 mg/dL (7-18); CALCIUM 8.7 mg/dL (8.5-10.1); CHLORIDE 102 mmol/L (98-107); CO2 27 mmol/L (21-32); CREATININE 1.9 mg/dL (0.55-1.3); GLUCOSE,RANDOM 133 mg/dL (74-106); POTASSIUM 4.3 mmol/L (3.5-5.1); SGOT/AST 10 U/L (15-37); SGPT/ALT 13 U/L (13-61); SODIUM 137 mmol/L (136-145); TOT PROT 7.5 g/dl (6.4-8.2)
--- NOTE | 2018-05-08 11:24 | PN ---
[facility] CIWA - CIWA Score Nausea/Vomitin-No Nausea/No Vomiting Muscle Tremors: 3 Anxiety: 3 Agitation: 3 Paroxysmal Sweats: 2 Orientation: 0-Oriented Tacttile Disturbances: 0-None Auditory Disturbances: 0-None Visual Disturbances: 0-None Headache: 0-None Present CIWA-Ar Total Score: 11 [facility] Progress Note (SOAP) Subjective: agitation sweats vaginal discharge with foul fishy odor. acid reflux Objective: 05/08/18 11:26 Vital Signs Temperature 98.2 F 05/08/18 09:08 Pulse Rate 84 05/08/18 09:08 Respiratory Rate 18 05/08/18 09:08 Blood Pressure 121/64 05/08/18 09:08 O2 Sat by Pulse Oximetry (%) Laboratory Tests 05/06/18 05/07/18 05/07/18 15:46 05:58 07:30 WBC 9.9 RBC 4.09 Hgb 11.3 Hct 35.4 MCV 86.6 MCH 27.7 MCHC 32.0 RDW 17.6 H Plt Count 361 MPV 7.7 Sodium Potassium Chloride Carbon Dioxide Anion Gap BUN Creatinine Creat Clearance w eGFR POC Glucometer 104 117 Random Glucose Calcium Total Bilirubin AST ALT Alkaline Phosphatase Total Protein Albumin RPR Titer 05/07/18 05/07/18 05/07/18 07:30 07:30 16:52 WBC RBC Hgb Hct MCV MCH MCHC RDW Plt Count MPV Sodium 135 L Potassium 4.3 Chloride 100 Carbon Dioxide 26 Anion Gap 9 BUN 35 H Creatinine 3.6 H Creat Clearance w eGFR 13.38 POC Glucometer 191 Random Glucose 125 H Calcium 8.6 Total Bilirubin 0.2 AST 13 L ALT 13 Alkaline Phosphatase 78 Total Protein 7.6 Albumin 3.3 L RPR Titer Nonreactive 05/08/18 05/08/18 06:11 07:00 WBC RBC Hgb Hct MCV MCH MCHC RDW Plt Count MPV Sodium 137 Potassium 4.3 Chloride 102 Carbon Dioxide 27 Anion Gap 9 BUN 25 H Creatinine 1.9 H Creat Clearance w eGFR 27.98 POC Glucometer 115 Random Glucose 133 H Calcium 8.7 Total Bilirubin 0.2 AST 10 L ALT 13 Alkaline Phosphatase 73 Total Protein 7.5 Albumin 3.1 L RPR Titer repeated labs results improving aaox3 ambulating no acute distress Assessment: 05/08/18 11:34 withdrawal sx Plan: continue detox increase fluids flagyl abx ordered protonix 20mg daily
[2018-05-08] MEDS ORDERED: RANITIDINE HCL 150 MG TABLET (FP) PO SCH (11:30)
[2018-05-08] MEDS: PANTOPRAZOLE 20 MG TABLET (FP) PO SCH (12:52)
[2018-05-08] MEDS: metroNIDAZOLE 250 MG TABLET PO SCH ×2 (14:10→22:21)
[2018-05-08] MEDS: chlordiazePOXIDE 5 MG CAPSULE PO SCH ×2 (17:20→22:21)
[2018-05-08] MEDS ORDERED: INSULIN (NOVOLOG) ASPART 100 UNITS/ML 10ML VIAL ONE (17:33)
[2018-05-08] MEDS: MELATONIN 5 MG TABLETS PO PRN (22:21)
[2018-05-08] MEDS: THIAMINE HCL 100 MG TABLET (FP) PO SCH (22:21)
[2018-05-08 22:48] LABS: URINE APPEARANCE CLEAR; URINE BILIRUBIN NEGATIVE (<2.0 mg/dL); URINE COLOR STRAW; URINE GLUCOSE (UA) NEGATIVE (NEGATIVE); URINE KETONE NEGATIVE (NEGATIVE); URINE LEUK ESTERASE 1+ (NEGATIVE); URINE NITRITE NEGATIVE (NEGATIVE); URINE PROTEIN NEGATIVE (NEGATIVE); URINE UROBILINOGEN NEGATIVE mg/dL (0.2-1.0)
[2018-05-08 22:53] LABS: EPI CELLS FEW /HPF (FEW); URINE BACTERIA RARE /hpf (NONE SEEN)
[2018-05-09] MEDS: chlordiazePOXIDE 5 MG CAPSULE PO SCH ×2 (05:45→10:20)
[2018-05-09] MEDS: metroNIDAZOLE 250 MG TABLET PO SCH ×3 (05:46→22:36)
[2018-05-09] MEDS ORDERED: INSULIN (NOVOLOG) ASPART 100 UNITS/ML 10ML VIAL ONE (07:48)
[2018-05-09] MEDS: INSULIN SLIDING SCALE (NOVOLOG) 1 VIAL SQ SCH ×2 (07:53→18:30)
[2018-05-09] MEDS: LISINOPRIL 10 MG TABLET (FP) PO SCH (10:20)
[2018-05-09] MEDS: PRENATAL VITAMINS W/ FOLIC ACID TABLET (FP) PO SCH (10:20)
[2018-05-09] MEDS: PANTOPRAZOLE 20 MG TABLET (FP) PO SCH (10:20)
[2018-05-09] MEDS: NICOTINE 21 MG/24 HOURS TOPICAL PATCH TD SCH (10:21)
[2018-05-09] MEDS: MICONAZOLE NITRATE 14 GM/TUBE TUBE TP SCH ×2 (10:48→22:36)
--- NOTE | 2018-05-09 12:30 | PN ---
[facility] Progress Note (SOAP) Subjective: vaginal itch feeling better little JORGE Objective: 05/09/18 12:32 Vital Signs Temperature 98.2 F 05/09/18 11:42 Pulse Rate 82 05/09/18 11:42 Respiratory Rate 18 05/09/18 11:42 Blood Pressure 134/80 05/09/18 11:42 O2 Sat by Pulse Oximetry (%) aaox3 ambulating no acute distress Assessment: 05/09/18 12:32 withdrawal sx Plan: continue detox increase fluids miconazole cream ordered
[2018-05-09] MEDS: chlordiazePOXIDE HCL 10 MG CAPSULE PO SCH ×2 (18:30→22:36)
[2018-05-09] MEDS: THIAMINE HCL 100 MG TABLET (FP) PO SCH (22:36)
[2018-05-09] MEDS: hydrOXYzine PAMOATE 50 MG CAPSULE (FP) PO PRN (22:36)
[2018-05-10] MEDS: metroNIDAZOLE 250 MG TABLET PO SCH (05:56)
[2018-05-10] MEDS: chlordiazePOXIDE HCL 10 MG CAPSULE PO SCH ×2 (05:56→10:52)
[2018-05-10] MEDS: INSULIN SLIDING SCALE (NOVOLOG) 1 VIAL SQ SCH (07:00)
[2018-05-10 09:33] VITALS: BP 117/55; PULSE 75; TEMP 97.9
[2018-05-10] MEDS: PRENATAL VITAMINS W/ FOLIC ACID TABLET (FP) PO SCH (10:51)
[2018-05-10] MEDS: PANTOPRAZOLE 20 MG TABLET (FP) PO SCH (10:52)
[2018-05-10] MEDS: NICOTINE 21 MG/24 HOURS TOPICAL PATCH TD SCH (10:52)
[2018-05-10] MEDS: LISINOPRIL 10 MG TABLET (FP) PO SCH (10:52)
[2018-05-10] MEDS: MICONAZOLE NITRATE 14 GM/TUBE TUBE TP SCH (10:52)
== END 2018-05-10 11:30 | disposition other institution (70) | DRG 774 ==
LOC: YASAS 12:43 → Y6N 16:02
PROC: HZ2ZZZZ Detoxification Services for Substance Abuse Treatment (ICD-10-PCS; principal; 2018-05-06)
DX: F10.230 Alcohol dependence with withdrawal, uncomplicated (principal); F14.20 Cocaine dependence, uncomplicated; F12.20 Cannabis dependence, uncomplicated; F17.210 Nicotine dependence, cigarettes, uncomplicated; Z21 Asymptomatic human immunodeficiency virus [HIV] infection status; I10 Essential (primary) hypertension; E11.9 Type 2 diabetes mellitus without complications; Z79.4 Long term (current) use of insulin; Z79.84 Long term (current) use of oral hypoglycemic drugs; N89.8 Other specified noninflammatory disorders of vagina; E66.9 Obesity, unspecified; Z68.43 Body mass index [BMI] 50.0-59.9, adult
CPT/HCPCS: 36415; 71046-TC-FY; 80053; 81003; 81015; 82962; 85027; 86593; 90688; G0008

== ENCOUNTER 2018-05-10 12:02 | Inpatient (IN) | payer OTHER ==
[2018-05-10] MEDS ORDERED: ALBUTEROL SO4 8 GM HFA INHALER IH PRN (12:49)
--- NOTE | 2018-05-10 12:49 | HP ---
[facility] Rehab Assess/Revision - Admission History Admitted to Rehab from: [facility] Date of Admission to Rehab: 05/10/18 - Vital signs Vital Signs: Vital Signs Period Temp Pulse Resp BP Sys/Trevizo Pulse Ox Last 24 Hr 96 F 87 18 121/86 - Findings Detox History & Physical reviewed: Yes Concur with findings: Yes
[2018-05-10] MEDS ORDERED: IBUPROFEN 400 MG TABLET (FP) PO PRN (12:50)
[2018-05-10] MEDS ORDERED: MAGNESIUM HYDROX 2400MG/30ML ORAL SUSPENSION 30 ML CUP PO PRN (12:50)
[2018-05-10] MEDS ORDERED: LOPERAMIDE HCL 2 MG CAPSULE PO PRN (12:50)
[2018-05-10] MEDS ORDERED: MAGNESIUM CITRATE 300 ML BOTTLE PO PRN (12:50)
[2018-05-10] MEDS ORDERED: MENTHOL/PHENOL 1 EACH UD MM PRN (12:50)
[2018-05-10] MEDS ORDERED: MAG HYDROX/AL HYDROX/SIMETH 30 ML UNIT-DOSE CUP PO PRN (12:50)
[2018-05-10] MEDS ORDERED: P-EPHED 60MG/TRIPROLIDI 2.5MG TABLET PO PRN (12:50)
[2018-05-10] MEDS ORDERED: guaiFENesin/D-METHORPHAN HB 10 ML UNIT-DOSE CUPS PO PRN (12:50)
[2018-05-10] MEDS ORDERED: hydrOXYzine PAMOATE 50 MG CAPSULE (FP) PO PRN (12:50)
--- NOTE | 2018-05-10 12:57 | DS ---
[facility] Detox Discharge Summary Admission Date: 05/10/18 Discharge Date: 05/10/18 - History Present History: Alcohol Dependence, Opioid Dependence Pertinent Past History: DM type 2 , Obesity, asthma - Physical Exam Results Vital Signs: Vital Signs Temperature 96 F L 05/10/18 12:09 Pulse Rate 87 05/10/18 12:09 Respiratory Rate 18 05/10/18 12:09 Blood Pressure 121/86 05/10/18 12:09 O2 Sat by Pulse Oximetry (%) Pertinent Admission Physical Exam Findings: withdrawal sx - Treatment Hospital Course: Detox Protocol Followed, Detoxed Safely, Responded well, Discharged Condition Good, Rehab Referral Accepted - Medication Discharge Medications: Ambulatory Orders Albuterol Sulfate Inhaler - [Ventolin HFA Inhaler -] 2 inh IH Q4H PRN 10/02/12 traZODone HCL [Trazodone HCl] 50 mg PO HS #30 tablet 09/19/16 Lisinopril 10 mg PO DAILY 05/06/18 Pantoprazole Sodium [Protonix -] 20 mg PO DAILY 05/10/18 metroNIDAZOLE [Flagyl -] 500 mg PO TID 05/10/18 - Diagnosis (1) Alcohol dependence with uncomplicated withdrawal Current Visit: Yes Status: Acute (2) Cannabis dependence Current Visit: Yes Status: Acute (3) Cocaine dependence Current Visit: Yes Status: Acute (4) Drug-induced mood disorder Current Visit: Yes Status: Acute (5) Asthma Current Visit: Yes Status: Chronic (6) DM Diabetes mellitus type 2 Current Visit: No Status: Chronic (7) Essential hypertension Current Visit: No Status: Chronic (8) Human immunodeficiency virus infection Current Visit: Yes Status: Chronic (9) Obesity Current Visit: No Status: Chronic - AMA Did Patient Leave Against Medical Advice: No
[2018-05-10] MEDS ORDERED: PATIENT'S OWN MEDICATION (NON-FORMULARY) (Metronidazole [Flagyl -] 500 MG) PO SCH (14:00)
[2018-05-10] MEDS: metroNIDAZOLE 250 MG TABLET PO SCH ×2 (15:08→21:37)
--- NOTE | 2018-05-10 15:37 | PN ---
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 Chart reviewed. Pharmacy claims reviewed and noted patient was given a prescription of trazodone 100mg in March of 2018. Will order trazodone 50mg qhs.
[2018-05-10] MEDS: INSULIN SLIDING SCALE (NOVOLOG) 1 VIAL SQ SCH (17:05)
[2018-05-10] MEDS: THIAMINE HCL 100 MG TABLET (FP) PO SCH (21:36)
[2018-05-10] MEDS: traZODone HCL 50 MG TABLET (FP) PO SCH (21:37)
[2018-05-10] MEDS ORDERED: MELATONIN 5 MG TABLETS PO PRN (22:00)
[2018-05-10] MEDS ORDERED: traZODone HCL 50 MG TABLET (FP) PO SCH (22:00)
[2018-05-11] MEDS ORDERED: PT OWN MED DRAWER 7, Y5N ONE (05:50)
[2018-05-11] MEDS: metroNIDAZOLE 250 MG TABLET PO SCH ×3 (06:59→21:40)
[2018-05-11] MEDS: INSULIN SLIDING SCALE (NOVOLOG) 1 VIAL SQ SCH ×2 (08:09→17:07)
[2018-05-11] MEDS: PANTOPRAZOLE 20 MG TABLET (FP) PO SCH (09:59)
[2018-05-11] MEDS: PRENATAL VITAMINS W/ FOLIC ACID TABLET (FP) PO SCH (09:59)
[2018-05-11] MEDS: LISINOPRIL 10 MG TABLET (FP) PO SCH (10:02)
[2018-05-11] MEDS ORDERED: INSULIN (NOVOLOG) ASPART 100 UNITS/ML 10ML VIAL ONE (17:08)
[2018-05-11] MEDS: traZODone HCL 50 MG TABLET (FP) PO SCH (21:40)
[2018-05-11] MEDS: THIAMINE HCL 100 MG TABLET (FP) PO SCH (21:40)
[2018-05-11] MEDS: ACETAMINOPHEN 325 MG TABLET (FP) PO PRN (21:41)
[2018-05-12] MEDS: metroNIDAZOLE 250 MG TABLET PO SCH ×3 (07:03→21:12)
[2018-05-12] MEDS: INSULIN SLIDING SCALE (NOVOLOG) 1 VIAL SQ SCH ×2 (07:04→16:22)
[2018-05-12] MEDS: PANTOPRAZOLE 20 MG TABLET (FP) PO SCH (09:41)
[2018-05-12] MEDS: PRENATAL VITAMINS W/ FOLIC ACID TABLET (FP) PO SCH (09:41)
[2018-05-12] MEDS: LISINOPRIL 10 MG TABLET (FP) PO SCH (09:42)
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
[2018-05-12] MEDS: THIAMINE HCL 100 MG TABLET (FP) PO SCH (21:12)
[2018-05-12] MEDS: traZODone HCL 50 MG TABLET (FP) PO SCH (21:12)
[2018-05-13] MEDS: metroNIDAZOLE 250 MG TABLET PO SCH (07:31)
[2018-05-13] MEDS: INSULIN SLIDING SCALE (NOVOLOG) 1 VIAL SQ SCH ×2 (07:32→16:39)
[2018-05-13] MEDS: PANTOPRAZOLE 20 MG TABLET (FP) PO SCH (10:11)
[2018-05-13] MEDS: PRENATAL VITAMINS W/ FOLIC ACID TABLET (FP) PO SCH (10:12)
[2018-05-13] MEDS: LISINOPRIL 10 MG TABLET (FP) PO SCH (10:12)
[2018-05-13] MEDS: ACETAMINOPHEN 325 MG TABLET (FP) PO PRN (14:23)
[2018-05-13] MEDS: traZODone HCL 50 MG TABLET (FP) PO SCH (21:34)
[2018-05-13] MEDS: THIAMINE HCL 100 MG TABLET (FP) PO SCH (21:34)
[2018-05-14] MEDS: INSULIN SLIDING SCALE (NOVOLOG) 1 VIAL SQ SCH ×2 (06:34→17:02)
[2018-05-14] MEDS: PANTOPRAZOLE 20 MG TABLET (FP) PO SCH (09:52)
[2018-05-14] MEDS: LISINOPRIL 10 MG TABLET (FP) PO SCH (09:52)
[2018-05-14] MEDS: PRENATAL VITAMINS W/ FOLIC ACID TABLET (FP) PO SCH (09:52)
[2018-05-14] MEDS ORDERED: INSULIN (NOVOLOG) ASPART 100 UNITS/ML 10ML VIAL ONE (16:45)
[2018-05-14] MEDS: traZODone HCL 50 MG TABLET (FP) PO SCH (21:22)
[2018-05-14] MEDS: THIAMINE HCL 100 MG TABLET (FP) PO SCH (21:22)
[2018-05-15] MEDS: INSULIN SLIDING SCALE (NOVOLOG) 1 VIAL SQ SCH ×2 (06:41→17:03)
[2018-05-15] MEDS: PANTOPRAZOLE 20 MG TABLET (FP) PO SCH (09:51)
[2018-05-15] MEDS: LISINOPRIL 10 MG TABLET (FP) PO SCH (09:51)
[2018-05-15] MEDS: PRENATAL VITAMINS W/ FOLIC ACID TABLET (FP) PO SCH (09:51)
[2018-05-15] MEDS: ACETAMINOPHEN 325 MG TABLET (FP) PO PRN (13:54)
[2018-05-15] MEDS ORDERED: INSULIN (NOVOLOG) ASPART 100 UNITS/ML 10ML VIAL ONE (17:02)
[2018-05-15] MEDS: traZODone HCL 50 MG TABLET (FP) PO SCH (21:21)
[2018-05-15] MEDS: THIAMINE HCL 100 MG TABLET (FP) PO SCH (21:21)
[2018-05-16] MEDS: INSULIN SLIDING SCALE (NOVOLOG) 1 VIAL SQ SCH ×2 (07:22→17:58)
[2018-05-16] MEDS: LISINOPRIL 10 MG TABLET (FP) PO SCH (10:01)
[2018-05-16] MEDS: PANTOPRAZOLE 20 MG TABLET (FP) PO SCH (10:01)
[2018-05-16] MEDS: PRENATAL VITAMINS W/ FOLIC ACID TABLET (FP) PO SCH (10:01)
[2018-05-16] MEDS: CLOTRIMAZOLE 10 MG TROCHE (FP) PO SCH ×3 (14:28→21:34)
[2018-05-16] MEDS ORDERED: PT OWN MED DRAWER 7, Y5N ONE (17:56)
[2018-05-16] MEDS: TETRAHYDROZOLINE HCL EYE DROPS OU PRN (17:57)
[2018-05-16] MEDS: THIAMINE HCL 100 MG TABLET (FP) PO SCH (21:34)
[2018-05-16] MEDS: traZODone HCL 50 MG TABLET (FP) PO SCH (21:34)
[2018-05-17] MEDS: CLOTRIMAZOLE 10 MG TROCHE (FP) PO SCH ×5 (07:15→21:10)
[2018-05-17] MEDS: INSULIN SLIDING SCALE (NOVOLOG) 1 VIAL SQ SCH ×2 (07:17→16:27)
[2018-05-17] MEDS ORDERED: INSULIN (NOVOLOG) ASPART 100 UNITS/ML 10ML VIAL ONE ×2 (07:18→16:28)
[2018-05-17] MEDS: TETRAHYDROZOLINE HCL EYE DROPS OU PRN (07:18)
[2018-05-17] MEDS ORDERED: PT OWN MED DRAWER 7, Y5N ONE (07:19)
[2018-05-17] MEDS: LISINOPRIL 10 MG TABLET (FP) PO SCH (09:20)
[2018-05-17] MEDS: PRENATAL VITAMINS W/ FOLIC ACID TABLET (FP) PO SCH (09:20)
[2018-05-17] MEDS: PANTOPRAZOLE 20 MG TABLET (FP) PO SCH (09:21)
[2018-05-17] MEDS: ACETAMINOPHEN 325 MG TABLET (FP) PO PRN (16:28)
[2018-05-17] MEDS: THIAMINE HCL 100 MG TABLET (FP) PO SCH (21:10)
[2018-05-17] MEDS: traZODone HCL 50 MG TABLET (FP) PO SCH (21:10)
[2018-05-18] MEDS: CLOTRIMAZOLE 10 MG TROCHE (FP) PO SCH ×5 (06:26→21:10)
[2018-05-18] MEDS: INSULIN SLIDING SCALE (NOVOLOG) 1 VIAL SQ SCH ×2 (06:27→16:49)
[2018-05-18] MEDS ORDERED: PT OWN MED DRAWER 7, Y5N ONE ×3 (06:32→23:17)
[2018-05-18] MEDS: TETRAHYDROZOLINE HCL EYE DROPS OU PRN ×2 (06:32→10:23)
[2018-05-18] MEDS: PRENATAL VITAMINS W/ FOLIC ACID TABLET (FP) PO SCH (10:21)
[2018-05-18] MEDS: LISINOPRIL 10 MG TABLET (FP) PO SCH (10:22)
[2018-05-18] MEDS: PANTOPRAZOLE 20 MG TABLET (FP) PO SCH (10:23)
[2018-05-18] MEDS ORDERED: INSULIN (NOVOLOG) ASPART 100 UNITS/ML 10ML VIAL ONE (16:43)
[2018-05-18] MEDS: THIAMINE HCL 100 MG TABLET (FP) PO SCH (21:10)
[2018-05-18] MEDS: traZODone HCL 50 MG TABLET (FP) PO SCH (21:10)
[2018-05-19] MEDS: CLOTRIMAZOLE 10 MG TROCHE (FP) PO SCH ×2 (06:40→09:54)
[2018-05-19] MEDS: TETRAHYDROZOLINE HCL EYE DROPS OU PRN ×2 (06:40→21:22)
[2018-05-19] MEDS: INSULIN SLIDING SCALE (NOVOLOG) 1 VIAL SQ SCH ×2 (06:46→16:43)
[2018-05-19] MEDS: PANTOPRAZOLE 20 MG TABLET (FP) PO SCH (09:54)
[2018-05-19] MEDS: LISINOPRIL 10 MG TABLET (FP) PO SCH (09:54)
[2018-05-19] MEDS: PRENATAL VITAMINS W/ FOLIC ACID TABLET (FP) PO SCH (09:54)
--- NOTE | 2018-05-19 11:28 | PN ---
[facility] Progress Note Note: PATIENT SEEN FOR C/O VAGINAL ITCHING AND BURNING AT VAGINAL AREA. RECENTLY TREATED FOR UTI WITH ABX. PATIENT HAS H/O DM. A/P VAGINITIS, LIKELY YEAST INFECTION. WILL TREAT WITH DIFLUCAN AND CLOTRIMAZOLE CREAM. CONTINUE TO MONITOR CLINICALLY. Vital Signs Temperature 97.9 F 05/19/18 06:53 Pulse Rate 87 05/19/18 09:34 Respiratory Rate 18 05/19/18 06:53 Blood Pressure 131/79 05/19/18 09:34 O2 Sat by Pulse Oximetry (%) Laboratory Tests 05/10/18 05/11/18 05/11/18 17:04 06:58 17:05 POC Glucometer 123 116 217 05/12/18 05/12/18 05/13/18 07:03 16:22 07:31 POC Glucometer 123 142 123 05/13/18 05/14/18 05/14/18 16:38 06:33 17:02 POC Glucometer 156 136 154 05/15/18 05/15/18 05/16/18 06:40 17:01 06:26 POC Glucometer 130 221 132 05/16/18 05/17/18 05/17/18 17:08 07:14 16:25 POC Glucometer 123 151 184 05/18/18 05/18/18 05/19/18 06:26 16:49 06:40 POC Glucometer 121 154 115
[2018-05-19] MEDS: FLUCONAZOLE 100 MG TABLET (UD) PO SCH (12:50)
[2018-05-19] MEDS: traZODone HCL 50 MG TABLET (FP) PO SCH (21:20)
[2018-05-19] MEDS: THIAMINE HCL 100 MG TABLET (FP) PO SCH (21:20)
[2018-05-19] MEDS: CLOTRIMAZOLE 1% CREAM 15 GM TUBE TP SCH (21:21)
[2018-05-20] MEDS: INSULIN SLIDING SCALE (NOVOLOG) 1 VIAL SQ SCH ×2 (07:31→16:53)
[2018-05-20] MEDS ORDERED: PT OWN MED DRAWER 7, Y5N ONE (08:50)
[2018-05-20] MEDS: PRENATAL VITAMINS W/ FOLIC ACID TABLET (FP) PO SCH (10:13)
[2018-05-20] MEDS: LISINOPRIL 10 MG TABLET (FP) PO SCH (10:13)
[2018-05-20] MEDS: CLOTRIMAZOLE 1% CREAM 15 GM TUBE TP SCH ×2 (10:13→21:19)
[2018-05-20] MEDS: FLUCONAZOLE 100 MG TABLET (UD) PO SCH (10:13)
[2018-05-20] MEDS: PANTOPRAZOLE 20 MG TABLET (FP) PO SCH (10:13)
[2018-05-20] MEDS: traZODone HCL 50 MG TABLET (FP) PO SCH (21:18)
[2018-05-20] MEDS: THIAMINE HCL 100 MG TABLET (FP) PO SCH (21:18)
[2018-05-21] MEDS: INSULIN SLIDING SCALE (NOVOLOG) 1 VIAL SQ SCH ×2 (06:31→16:43)
[2018-05-21] MEDS ORDERED: PT OWN MED DRAWER 7, Y5N ONE ×2 (08:29→23:06)
[2018-05-21] MEDS: PANTOPRAZOLE 20 MG TABLET (FP) PO SCH (09:50)
[2018-05-21] MEDS: LISINOPRIL 10 MG TABLET (FP) PO SCH (09:50)
[2018-05-21] MEDS: PRENATAL VITAMINS W/ FOLIC ACID TABLET (FP) PO SCH (09:50)
[2018-05-21] MEDS: CLOTRIMAZOLE 1% CREAM 15 GM TUBE TP SCH ×2 (09:50→21:18)
[2018-05-21] MEDS: TETRAHYDROZOLINE HCL EYE DROPS OU PRN (09:51)
[2018-05-21] MEDS ORDERED: INSULIN (NOVOLOG) ASPART 100 UNITS/ML 10ML VIAL ONE (16:44)
[2018-05-21] MEDS: traZODone HCL 50 MG TABLET (FP) PO SCH (21:17)
[2018-05-21] MEDS: THIAMINE HCL 100 MG TABLET (FP) PO SCH (21:17)
[2018-05-22] MEDS: INSULIN SLIDING SCALE (NOVOLOG) 1 VIAL SQ SCH ×2 (07:01→16:46)
[2018-05-22] MEDS: LISINOPRIL 10 MG TABLET (FP) PO SCH (09:56)
[2018-05-22] MEDS: PRENATAL VITAMINS W/ FOLIC ACID TABLET (FP) PO SCH (09:56)
[2018-05-22] MEDS: PANTOPRAZOLE 20 MG TABLET (FP) PO SCH (09:56)
[2018-05-22] MEDS: CLOTRIMAZOLE 1% CREAM 15 GM TUBE TP SCH ×2 (09:57→21:17)
[2018-05-22] MEDS: TETRAHYDROZOLINE HCL EYE DROPS OU PRN (09:57)
[2018-05-22] MEDS ORDERED: PT OWN MED DRAWER 7, Y5N ONE (13:46)
[2018-05-22] MEDS ORDERED: INSULIN (NOVOLOG) ASPART 100 UNITS/ML 10ML VIAL ONE (16:46)
[2018-05-22] MEDS: THIAMINE HCL 100 MG TABLET (FP) PO SCH (21:15)
[2018-05-22] MEDS: traZODone HCL 50 MG TABLET (FP) PO SCH (21:16)
[2018-05-22] MEDS: TETRAHYDROZOLINE HCL EYE DROPS OU SCH (21:17)
[2018-05-23] MEDS: INSULIN SLIDING SCALE (NOVOLOG) 1 VIAL SQ SCH (06:36)
[2018-05-23 07:14] VITALS: TEMP 98.3
[2018-05-23] MEDS ORDERED: PT OWN MED DRAWER 7, Y5N ONE (09:02)
[2018-05-23 09:14] VITALS: BP 116/56; PULSE 96
[2018-05-23] MEDS: PANTOPRAZOLE 20 MG TABLET (FP) PO SCH (09:21)
[2018-05-23] MEDS: PRENATAL VITAMINS W/ FOLIC ACID TABLET (FP) PO SCH (09:21)
[2018-05-23] MEDS: LISINOPRIL 10 MG TABLET (FP) PO SCH (09:21)
[2018-05-23] MEDS: CLOTRIMAZOLE 1% CREAM 15 GM TUBE TP SCH (09:22)
[2018-05-23] MEDS: TETRAHYDROZOLINE HCL EYE DROPS OU SCH (09:23)
--- NOTE | 2018-05-23 09:47 | PN ---
Psychiatric Progress Note Vital Signs: Vital Signs Period Temp Pulse Resp BP Sys/Trevizo Pulse Ox Last 24 Hr 98.3 F 76-96 -18 116-137/56-100 Date of Session: 05/23/18 Chief Complaint:: Discharge visit HPI: Patient addressed Alcohol,Cocaine and Cannabis dependnece comorbid with Schizophrenia in remission. ROS: Significant for HIV+,HTN,Obesity. Current Medications: Active Medications Generic Name Dose Route Start Last Admin Trade Name Freq PRN Reason Stop Dose Admin Acetaminophen 650 mg 05/10/18 12:50 05/17/18 16:28 Tylenol - PO 650 mg Q4H PRN Administration FEVER Al Hydroxide/Mg Hydroxide 30 ml 05/10/18 12:50 Mylanta Oral Suspension - PO Q6H PRN DYSPEPSIA Albuterol Sulfate 2 puff 05/10/18 12:49 Ventolin Hfa Inhaler - IH Q4H PRN ASTHMA Clotrimazole 1 applic 05/19/18 22:00 05/23/18 09:22 Lotrimin 1% Cream - TP 05/26/18 21:59 1 applic BID ELVIA Administration Eucalyptus/Menthol/Phenol/Sorbitol 1 each 05/10/18 12:50 Cepastat Lozenge - MM Q4H PRN SORE THROAT Guaifenesin 10 ml 05/10/18 12:50 Robitussin Dm - PO Q6H PRN COUGH Hydroxyzine Pamoate 50 mg 05/10/18 12:50 Vistaril - PO Q4H PRN AGITATION Ibuprofen 400 mg 05/10/18 12:50 Motrin - PO Q6H PRN Pain Level 4-6 Insulin Aspart 1 vial 05/10/18 16:30 05/23/18 06:36 Novolog Vial Sliding Scale - SQ Not Given [facility] Protocol Lisinopril 10 mg 05/11/18 10:00 05/23/18 09:21 Prinivil PO 10 mg DAILY ELVIA Administration Loperamide HCl 4 mg 05/10/18 12:50 Imodium - PO Q6H PRN DIARRHEA Magnesium Citrate 300 ml 05/10/18 12:50 Citroma - PO Q48H PRN CONSTIPATION Magnesium Hydroxide 30 ml 05/10/18 12:50 Milk Of Magnesia - PO DAILY PRN CONSTIPATION Melatonin 5 mg 05/10/18 22:00 05/13/18 21:34 Melatonin PO 5 mg HS PRN Administration INSOMNIA Pantoprazole Sodium 20 mg 05/11/18 10:00 05/23/18 09:21 Protonix - PO 20 mg DAILY ELVIA Administration Multivit/Folic Acid/Iron 1 tab 05/11/18 10:00 05/23/18 09:21 Vitamins (Sjr) - PO 1 tab DAILY ELVIA Administration Pseudoephedrine/Triprolidine 1 combo 05/10/18 12:50 Actifed - PO TID PRN NASAL CONGESTION Tetrahydrozoline HCl 1 drop 05/22/18 22:00 05/23/18 09:23 Visine - OU 1 drop BID ELVIA Administration Thiamine HCl 100 mg 05/10/18 22:00 05/22/18 21:15 Vitamin B1 - PO 100 mg HS ELVIA Administration Trazodone HCl 50 mg 05/10/18 22:00 05/22/18 21:16 Desyrel - PO 50 mg HS ELVIA Administration Current Side Effect: No Lab tests ordered: No Lab tests reviewed: Yes Provider note:: Patient completed this program today.she has met her treatment goals and will continue to address her issues on outpatient basis at [facility].Patient reports finding that Trazodone 50 mg po hs helps to reduce her anxiety,sleeping difficulties.Scropt for 30 days provided. supportive therapy provided focusing on relapse prevention. Patient is stable for discharge today. Total face to face time:: 30 Mental Status Exam - Mental Status Exam Alert and Oriented to: Time, Place, Person Cognitive Function: Grossly Intact Patient Appearance: Well Groomed Mood: Euthymic Affect: Mood Congruent Patient Behavior: Appropriate, Cooperative Speech Pattern: Clear Voice Loudness: Normal Thought Process: Goal Oriented Thought Disorder: Being Controlled Hallucinations: Denies Suicidal Ideation: Denies Homicidal Ideation: Denies Insight/Judgement: Fair Sleep: Fair Appetite: Good Muscle strength/Tone: Normal Psychiatric Treatment Plan - Problem List (1) Cannabis dependence Current Visit: Yes (2) Cocaine dependence Current Visit: Yes (3) Drug-induced mood disorder Current Visit: Yes (4) Asthma Current Visit: Yes (5) Human immunodeficiency virus infection Current Visit: Yes (6) Alcohol dependence Current Visit: Yes (7) DM Diabetes mellitus type 2 Current Visit: Yes (8) 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
== END 2018-05-23 09:45 | disposition home or self-care (01) | DRG 772 ==
LOC: YASAS 12:02 → Y3E 12:03
PROVIDERS: ADMIT Psychiatry & Neurology Psychiatry; ATTEND Psychiatry & Neurology Psychiatry
PROC: HZ42ZZZ Group Counseling for Substance Abuse Treatment, Cognitive-Behavioral (ICD-10-PCS; principal; 2018-05-10)
DX: F10.20 Alcohol dependence, uncomplicated (principal); F14.20 Cocaine dependence, uncomplicated; F12.20 Cannabis dependence, uncomplicated; F17.210 Nicotine dependence, cigarettes, uncomplicated; F20.89 Other schizophrenia; J45.909 Unspecified asthma, uncomplicated; Z21 Asymptomatic human immunodeficiency virus [HIV] infection status; E11.9 Type 2 diabetes mellitus without complications; I10 Essential (primary) hypertension; B37.3 Candidiasis of vulva and vagina; E66.9 Obesity, unspecified; Z68.43 Body mass index [BMI] 50.0-59.9, adult; Z87.42 Personal history of other diseases of the female genital tract
CPT/HCPCS: 82962

== ENCOUNTER 2019-03-15 16:40 | Inpatient (IN) | payer OTHER ==
[2019-03-15 17:53] VITALS: BMI 60.2
--- NOTE | 2019-03-15 19:45 | HP ---
CIWA Score Nausea/Vomitin Muscle Tremors: None Anxiety: 4-Mod. Anxious/Guarded Agitation: 0-Normal Activity Paroxysmal Sweats: 2 Orientation: 0-Oriented Tacttile Disturbances: 3-Moderate Itch/Numb/Burn Auditory Disturbances: 2-Mild Harshness/Frighten (Occasional.) Visual Disturbances: 2-Mild Sensitivity (Occasional.) Headache: 3-Moderate CIWA-Ar Total Score: 19 - Admission Criteria OASAS Guidelines: Admission for Medically Managed Detox: Requires at least one of the followin. CIWA greater than 12 2. Seizures within the past 24 hours 3. Delirium tremens within the past 24 hours 4. Hallucinations within the past 24 hours 5. Acute intervention needed for co occurring medical disorder 6. Acute intervention needed for co occurring psychiatric disorder 7. Severe withdrawal that cannot be handled at a lower level of care (continued vomiting, continued diarrhea, abnormal vital signs) requiring intravenous medication and/or fluids 8. Patient presents the following: CIWA greater than 12 Admission Criteria Met: Admission criteria met Admitting History and Physical - Primary Care Physician PCP: Dr. Noemi Ralph ([place], [place]) - Admission Chief Complaint: "I need to Detox from drugs in a clean and sober setting. I need to get my mind together.". Patient is here to Detox from Alcohol. History of Present Illness: Patient is a 53 YO female here to Detox from Alcohol. Patient has had previous Detox / Rehab admissions at [facility]:(Last: 05/2018). Patient also uses cocaine on a daily basis. Patient smokes marijuana approx. 1 X / month. Confidential Drug Utilization Report Search Terms: Zeynep Tai, 1965 Search Date: 03/15/2019 09:28:01 PM The Drug Utilization Report below displays all of the controlled substance prescriptions, if any, that your patient has filled in the last twelve months. The information displayed on this report is compiled from pharmacy submissions to the Department, and accurately reflects the information as submitted by the pharmacies. This report was requested by: Meng Andino | Reference #: [id number] There are no results for the search terms that you entered. 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 2 years ago. ...: No Infectious Disease: Yes: HIV Psych: Yes: Schizophrenia Endocrine: Yes: Diabetes Mellitus Additional Past Medical History: DENIES. - Past Surgical History Past Surgical History: Yes: Hernia Repair (2015.), Tubal Ligation (2002) Additional Past Surgical History: DENIES. - Smoking History Smoking history: Current every day smoker Have you smoked in the past 12 months: Yes Aproximately how many cigarettes per day: 20 - Alcohol/Substance Use Hx Alcohol Use: Yes (drinking since 17 yo, a few 6 packs beer daily) Number of Drinks Daily: 36 (Beers, Vodka, Wine.) History of Substance Use: reports: Cocaine Date of Last Use: 03/15/19 - Social History Usual Living Arrangement: Yes: Alone Do you think of yourself as: Bisexual ADL: Independent Occupation: None Currently. History of Recent Travel: No Admission [facility] Chief Complaint: "I need to Detox from drugs in a clean and sober setting. I need to get my mind together." Patient is here to Detox from Alcohol. Allergies/Adverse Reactions: Allergies Allergy/AdvReac Type Severity Reaction Status Date / Time No Known Allergies Allergy Verified 03/15/19 17:44 History of Present Illness: Patient is a 53 YO female here to Detox from Alcohol. Patient has had previous Detox / Rehab admissions at [facility]:(Last: 05/2018). Patient also uses cocaine on a daily basis. Patient smokes marijuana approx. 1 X / month. Exam Limitations: No Limitations - Ebola screening Have you traveled outside of the country in the last 21 days: No (N) Have you had contact with anyone from an Ebola affected area: No Have you been sick,other than usual withdrawal symptoms: Yes (Cough, Nasal Congestion.) Do you have a fever: No - Review of Systems Constitutional: Chills, Diaphoresis, Fever, Malaise, Night Sweats, Changes in sleep EENT: reports: Blurred Vision, Nose Congestion, Sinus Pressure Respiratory: reports: Shortness of Breath, Productive cough Cardiac: reports: Palpitations (Occasional.) GI: reports: Diarrhea : reports: No Symptoms Reported Musculoskeletal: reports: Joint Pain (Fingers of Bilateral Hands, Bilateral Knees.), Joint Stiffness Integumentary: reports: No Symptoms Reported Neuro: reports: Numbness (Fingers of Bilateral Hands, Toes of Bilateral Feet.), Tremors Endocrine: reports: No Symptoms Reported Hematology: reports: No Symptoms Reported Psychiatric: reports: Judgement Intact, Mood/Affect Appropiate, Orientated x3, Anxious, Depressed Other Systems: Reviewed and Negative Patient History - Patient Medical History Hx Anemia: No Hx Asthma: Yes (Medication.) Hx Chronic Obstructive Pulmonary Disease (COPD): No Hx Cancer: No Hx Cardiac Disorders: Yes (HTN.) Hx Congestive Heart Failure: No Hx Hypertension: Yes (Takes Medication.) Hx Hypercholesterolemia: No Hx Pacemaker: No HX Cerebrovascular Accident: No Hx Seizures: No Hx Dementia: No Hx Diabetes: Yes (Type II, On Medication.) Hx Gastrointestinal Disorders: No Hx Liver Disease: No Hx Genitourinary Disorders: No Hx Sexually Transmitted Disorders: No (Syphillis 2017 and treated) Hx Renal Disease (ESRD): No Hx Thyroid Disease: No Hx Human Immunodeficiency Virus (HIV): Yes (Truvada, Norvir, Reyatz, brought meds. in pill box, unclear if present.) Hx Hepatitis C: No (Last Tested within last 3 months: NEGATIVE.) Hx Depression: Yes (Takes Meds.) Hx Suicide Attempt: No (PATIENT DENIES CURRENT SI / HI.) Hx Bipolar Disorder: No Hx Schizophrenia: Yes (Takes Meds.) Other Medical History: DENIES. - Patient Surgical History Past Surgical History: Yes Hx Neurologic Surgery: No Hx Cataract Extraction: No Hx Cardiac Surgery: No Hx Lung Surgery: No Hx Breast Surgery: No Hx Breast Biopsy: No Hx Abdominal Surgery: Yes (umbilical hernia repair in 2013) Hx Appendectomy: No Hx Cholecystectomy: No Hx Genitourinary Surgery: No Hx Section: No Hx Orthopedic Surgery: No Other Surgical History: tubal ligation 2002 Anesthesia Reaction: No - PPD History Previous Implant?: No Documented Results: Positive w/o proof (COMPLETED TREATMENT IN 1990, CXR IN [facility] (05/2018): NEGATIVE FOR ACUTE DISEASE.) Implanted On Prior [facility] Admission?: No PPD to be Administered?: No - Reproductive History Patient is a Female of Child Bearing Age (11 -55 yrs old): Yes LMP comment: APPROX. 2 YEARS AGO. Patient : No - Smoking Cessation Smoking history: Current every day smoker Have you smoked in the past 12 months: Yes Aproximately how many cigarettes per day: 20 Cigars Per Day: 1 (Every 2-3 days.) Hx Chewing Tobacco Use: No Initiated information on smoking cessation: Yes 'Breaking Loose' booklet given: 03/15/19 (GIVEN TO PATIENT.) - Substance & Tx. History Hx Alcohol Use: Yes Hx Substance Use: Yes Substance Use Type: Alcohol, Cocaine, Marijuana Hx Substance Use Treatment: Yes (Previpous Detox/Rehab admissions at [facility] (Last : 05/2018).) - Substances abused Alcohol Substance route: Oral Frequency: Daily Amount used: 6 packs of beer/1 to 2 pints of vodka/wine Age of first use: 17 Date of last use: 03/15/19 Crack Substance route: Smoking Frequency: Daily Amount used: 6 to 7 dollars Age of first use: 23 Date of last use: 03/15/19 Marijuana/Hashish Substance route: Smoking Frequency: Daily Amount used: 2 bags Age of first use: 17 Date of last use: 10/28/18 Admission Physical Exam S - Vital Signs Vital Signs: Vital Signs - 24 hr 03/15/19 17:43 Temperature 97 F L Pulse Rate 94 H Respiratory 16 Rate Blood Pressure 160/91 - Physical General Appearance: Yes: No Apparent Distress, Nourished, Appropriately Dressed , Tremorous, Anxious HEENTM: Yes: Hearing grossly Normal, Normocephalic, Normal Voice, RAY, Pharynx Normal Respiratory: Yes: Chest Non-Tender, No Respiratory Distress, No Accessory Muscle Use, Rhonchi Neck: Yes: No masses,lesions,Nodules, Supple, Trachea in good position Breast: Yes: Breast Exam Deferred Cardiology: Yes: Regular Rhythm, Regular Rate, S1, S2 Abdominal: Yes: Normal Bowel Sounds, Non Tender, Soft, Protuberent Genitourinary: Yes: Within Normal Limits Back: Yes: Decreased Range of Motion Musculoskeletal: Yes: Gait Steady, Joint Stiffness (Bilateral Hands and Knees.) Extremities: Yes: Normal Capillary Refill, Tremors Neurological: Yes: Fully Oriented, Alert, Normal Mood/Affect, Normal Response Integumentary: Yes: Normal Color, Dry, Warm, Other (Patches of Dry Skin noted on soles of bilateral feet. Deep cracks in skin noted on heels of bilateral feet.) Lymphatic: Yes: Within Normal Limits - Diagnostic (1) History of schizophrenia Current Visit: Yes Status: Suspected (2) History of depression Current Visit: Yes Status: Suspected (3) Foot ulcer Current Visit: Yes Status: Acute Qualifiers: Laterality: unspecified laterality Non-pressure ulcer stage: limited to breakdown of skin Qualified Code(s): L97.501 - Non-pressure chronic ulcer of other part of unspecified foot limited to breakdown of skin (4) Alcohol dependence with uncomplicated withdrawal Current Visit: Yes Status: Acute (5) Asthma Current Visit: Yes Status: Chronic (6) Cannabis dependence Current Visit: Yes Status: Chronic (7) Cocaine dependence Current Visit: Yes Status: Chronic (8) DM Diabetes mellitus type 2 Current Visit: Yes Status: Chronic (9) Essential hypertension Current Visit: Yes Status: Chronic (10) Human immunodeficiency virus infection Current Visit: Yes Status: Chronic (11) Nicotine dependence Current Visit: Yes Status: Chronic (12) Diabetic peripheral neuropathy Current Visit: Yes Status: Chronic Cleared for Admission S - Detox or Rehab [facility] Level of Care: Medically Managed Detox Regimen/Protocol: Librium Claeared for Rehab Admission: No Breathalyzer - Breathalyzer Breathalyzer: 0 Urine Drug Screen - Test Device Lot number: [id number] Expiration date: 10/31/20 - Control Is test valid?: Yes - Results Drug screen NEGATIVE: No Urine drug screen results: JENNIFER-Cocaine Inpatient Rehab Admission - Rehab Decision to Admit Inpatient rehab admission?: No
[2019-03-15] MEDS ORDERED: ACETAMINOPHEN 325 MG TABLET (FP) PO PRN (21:12)
[2019-03-15] MEDS ORDERED: IBUPROFEN 400 MG TABLET (FP) PO PRN (21:12)
[2019-03-15] MEDS ORDERED: MAGNESIUM HYDROX 2400MG/30ML ORAL SUSPENSION 30 ML CUP PO PRN (21:12)
[2019-03-15] MEDS ORDERED: METHOCARBAMOL 500 MG TABLET PO PRN (21:12)
[2019-03-15] MEDS ORDERED: NICOTINE POLACRILEX 2 MG GUM BUC PRN (21:12)
[2019-03-15] MEDS ORDERED: MAGNESIUM CITRATE 300 ML BOTTLE PO PRN (21:12)
[2019-03-15] MEDS ORDERED: chlordiazePOXIDE HCL 25 MG CAPSULE PO PRN (21:12)
[2019-03-15] MEDS ORDERED: MAG HYDROX/AL HYDROX/SIMETH 30 ML UNIT-DOSE CUP PO PRN (21:12)
[2019-03-15] MEDS ORDERED: BISMUTH SUBSALICYLATE 524 MG/30 ML UD PO PRN (21:12)
[2019-03-15] MEDS ORDERED: hydrOXYzine PAMOATE 25 MG CAPSULE (FP) PO PRN (21:12)
[2019-03-15] MEDS ORDERED: ONDANSETRON *ODT* 4 MG TABLET SL PRN (21:12)
[2019-03-15] MEDS ORDERED: MELATONIN 5 MG TABLETS PO PRN (22:00)
[2019-03-15] MEDS: ATORVASTATIN CA 10 MG TABLET (FP) PO SCH (22:29)
[2019-03-15] MEDS: GABAPENTIN 300 MG CAPSULE (FP) PO SCH (22:29)
[2019-03-15] MEDS: THIAMINE HCL 100 MG TABLET (FP) PO SCH (22:29)
[2019-03-15] MEDS: MONTELUKAST NA 10 MG TABLET PO SCH (22:29)
[2019-03-15] MEDS: chlordiazePOXIDE HCL 25 MG CAPSULE PO SCH (22:29)
[2019-03-15] MEDS: guaiFENesin 200 MG/10 ML 10 ML UNIT-DOSE CUPS PO PRN (22:31)
[2019-03-15] MEDS: MINERAL OIL/PETROLAT/WATER TOPICAL CREAM 454 GM JAR TP SCH (23:15)
[2019-03-15] MEDS: SILVER SULFADIAZINE 1% TOP CREAM 50 GM JAR TP SCH (23:15)
[2019-03-15] MEDS: ALBUTEROL SO4 2.5/IPRATROPIUM 0.5 INH SOL 3 ML VIAL.NEB. NEB PRN (23:16)
[2019-03-16] MEDS: chlordiazePOXIDE HCL 25 MG CAPSULE PO SCH ×4 (06:05→22:16)
[2019-03-16] MEDS: GABAPENTIN 300 MG CAPSULE (FP) PO SCH ×3 (06:06→22:17)
[2019-03-16] MEDS: metFORMIN HCL 500 MG TABLET (FP) PO SCH ×2 (06:09→16:57)
[2019-03-16] MEDS: ALBUTEROL SO4 2.5/IPRATROPIUM 0.5 INH SOL 3 ML VIAL.NEB. NEB PRN ×2 (08:00→23:18)
[2019-03-16 10:03] LABS: HEMOGLOBIN 11.4 GM/dL (10.7-15.3); MCH 28.1 pg (25.7-33.7); MCHC 32.6 g/dl (32.0-36.0); MEAN CELL VOLUME 86.2 fl (80-96); MEAN PLT VOLUME 7.7 fl (7.5-11.1); PLATELET COUNT 406 K/MM3 (134-434); RBC 4.07 M/mm3 (3.60-5.2); RDW 16.9 % (11.6-15.6); WHITE BLOOD COUNT 8.4 K/mm3 (4.0-10.0)
[2019-03-16] MEDS: NICOTINE 21 MG/24 HOURS TOPICAL PATCH TD SCH (10:16)
[2019-03-16 10:18] LABS: ALBUMIN 3.2 g/dl (3.4-5.0); BILIRUBIN,TOTAL 0.8 mg/dL (0.2-1); BLOOD UREA NITROGEN 13.8 mg/dL (7-18); CALCIUM 9.1 mg/dL (8.5-10.1); CREATININE 0.8 mg/dL (0.55-1.3); POTASSIUM 4.1 mmol/L (3.5-5.1); TOT PROT 8.1 g/dl (6.4-8.2)
[2019-03-16] MEDS: SILVER SULFADIAZINE 1% TOP CREAM 50 GM JAR TP SCH ×2 (10:37→22:20)
[2019-03-16] MEDS: MINERAL OIL/PETROLAT/WATER TOPICAL CREAM 454 GM JAR TP SCH ×2 (10:37→22:20)
[2019-03-16] MEDS: LISINOPRIL 10 MG TABLET (FP) PO SCH (10:38)
[2019-03-16] MEDS: ASPIRIN 81 MG CHEWABLE TABLETS PO SCH (10:39)
[2019-03-16] MEDS: guaiFENesin 200 MG/10 ML 10 ML UNIT-DOSE CUPS PO PRN (10:40)
[2019-03-16] MEDS: PRENATAL VITAMINS W/ FOLIC ACID TABLET (FP) PO SCH (10:41)
[2019-03-16] MEDS: PANTOPRAZOLE 20 MG TABLET (FP) PO SCH (10:42)
[2019-03-16] MEDS ORDERED: predniSONE 20 MG TABLET (UD) PO ONE (11:03)
[2019-03-16] MEDS ORDERED: AZITHROMYCIN 250 MG TABLET PO ONE (11:05)
--- NOTE | 2019-03-16 13:19 | CONSULT ---
[facility] Psychiatric Consult - Data Date of interview: 03/16/19 Admission source: [facility] Identifying data: Readmission to [facility] for this 53 y/o [place]born female self-referred for detoxification (HUNG issues : alcohol, cocaine, nicotine ). Interviewed at [address] [place] [address]. Patient is single (self-reported as bisexual of orientation), a mother of four, domiciled, unemployed and supported on SSI benefits + HAS[employer] funds. Substance Abuse History: Discussed with the patient. Details in current [facility] report as follows : Smoking history: Current every day smoker. Have you smoked in the past 12 months: Yes. Aproximately how many cigarettes per day: 20. Cigars Per Day: 1 (Every 2-3 days.). Hx Chewing Tobacco Use: No. Initiated information on smoking cessation: Yes. 'Breaking Loose' booklet given: (GIVEN TO PATIENT.). - Substance & Tx. History. Hx Alcohol Use: Yes. Hx Substance Use: Yes. Substance Use Type: Alcohol, Cocaine, Marijuana. Hx Substance Use Treatment: Yes (Previpous Detox/Rehab admissions at [facility] (Last: ).). - Substances abused. Alcohol. Substance route: Oral. Frequency : Daily. Amount used: 6 packs of beer/1 to 2 pints of vodka/wine. Age of first use: 17. Date of last use: 03/15/19. Crack. Substance route: Smoking. Frequency: Daily. Amount used: 6 to 7 dollars. Age of first use: 23. Date of last use: 03/15/19. Marijuana/Hashish. Substance route: Smoking. Frequency: Daily. Amount used: 2 bags. Age of first use: 17. Date of last use: 10/28/18 Medical History: Medical profile is remarkable for morbid obesity, bronchial asthma, hypertension, HIV infection since 1996 (on ART medications), peripheral neuropathy, positive PPD (treated with INH/B6 in 1990), antecedent of umbilical herniorraphy, tubal ligation and history of treatment of syphilis. Psychiatric History: Early onset of psychiatric illness (childhood). Patient reports a history of multiple psychiatric hospitalizations ([facility], [facility], [facility], [facility], [facility], [facility]). Diagnosed with schizophrenia. Last hospitalized about 20 years ago. [facility] Tai [facility] for [facility]. Maintained on a regimen of seroquel 100 mg/hs + trazodone 50 mg/hs. Patient admits to an antecedent of two suicide attempts (overdose with medications + deliberate ingestion of rat poison in 2016). Physical/Sexual Abuse/Trauma History: No information. Patient declines to discuss this domain. Additional Comment: Urine drug screen results: JENNIFER-Cocaine. Noted. Mental Status Exam - Mental Status Exam Alert and Oriented to: Time, Place, Person Cognitive Function: Good Patient Appearance: Unkempt (morbidly obese), Disheveled Mood: Withdrawn, Hopeful Affect: Mood Congruent, Constricted Patient Behavior: Fatigued, Appropriate, Cooperative Speech Pattern: Clear, Appropriate (bilingual = turkmen and irish) Voice Loudness: Normal Thought Process: Goal Oriented Thought Disorder: Not Present Hallucinations: Denies Suicidal Ideation: Denies Homicidal Ideation: Denies Insight/Judgement: Poor Sleep: Poorly, Difficulty falling asleep Appetite: Good Muscle strength/Tone: Normal Gait/Station: Normal Psychiatric Findings - Problem List ([place] 1, 2,3) (1) Alcohol dependence with uncomplicated withdrawal Current Visit: Yes Status: Acute (2) Cannabis dependence Current Visit: Yes Status: Chronic (3) Cocaine dependence Current Visit: Yes Status: Chronic (4) Nicotine dependence Current Visit: Yes Status: Chronic (5) History of schizophrenia Current Visit: Yes Status: Chronic (6) Drug-induced mood disorder Current Visit: Yes Status: Chronic (7) Insomnia Current Visit: Yes Status: Chronic - Initial Treatment Plan Initial Treatment Plan: Records ([facility]) revisited. Psychoeducation. Sleep hygiene. Detoxification. AA meetings. Resumed : trazodone 50 mg po hs. Side effects/benefits are discussed with the patient. Ms Tai is in agreement with this plan of care. Gave verbal consent to MD. Mar.
[2019-03-16] MEDS: DOLUTEGRAVIR SODIUM 50 MG TABLET (NON-FORMULARY) PO SCH (16:58)
[2019-03-16] MEDS: EMTRICITABINE/TENOFOV ALAFENAM (DESCOVY) TABLET PO SCH (16:58)
--- NOTE | 2019-03-16 19:25 | PN ---
S CIWA - CIWA Score Nausea/Vomitin-No Nausea/No Vomiting Muscle Tremors: None Anxiety: 4-Mod. Anxious/Guarded Agitation: 3 Paroxysmal Sweats: 3 Orientation: 0-Oriented Tacttile Disturbances: 1-Very Mild Itch/Numbness Auditory Disturbances: 0-None Visual Disturbances: 2-Mild Sensitivity Headache: 2-Mild CIWA-Ar Total Score: 15 BHS Progress Note (SOAP) Subjective: Anxious, Sweating, Restless, Chills. Objective: PATIENT A & O X 3, OBSERVED AMBULATING ON DETOX UNIT UNASSISTED. IN NO ACUTE DISTRESS. 03/16/19 19:21 Vital Signs Temperature 97.9 F 03/16/19 17:16 Pulse Rate 97 H 03/16/19 17:16 Respiratory Rate 18 03/16/19 17:16 Blood Pressure 132/69 03/16/19 17:16 O2 Sat by Pulse Oximetry (%) Laboratory Tests 03/15/19 03/16/19 03/16/19 18:15 06:08 08:00 WBC 8.4 RBC 4.07 Hgb 11.4 Hct 35.0 MCV 86.2 MCH 28.1 MCHC 32.6 RDW 16.9 H Plt Count 406 MPV 7.7 Sodium Potassium Chloride Carbon Dioxide Anion Gap BUN Creatinine Est GFR (CKD-EPI)AfAm Est GFR (CKD-EPI)NonAf POC Glucometer 178 Random Glucose Calcium Total Bilirubin AST ALT Alkaline Phosphatase Total Protein Albumin POC Urine HCG, Qual Negative RPR Titer 03/16/19 03/16/19 03/16/19 08:00 08:00 16:24 WBC RBC Hgb Hct MCV MCH MCHC RDW Plt Count MPV Sodium 137 Potassium 4.1 Chloride 104 Carbon Dioxide 25 Anion Gap 7 L BUN 13.8 Creatinine 0.8 Est GFR (CKD-EPI)AfAm 98.93 Est GFR (CKD-EPI)NonAf 85.36 POC Glucometer 228 Random Glucose 244 H Calcium 9.1 Total Bilirubin 0.8 AST 10 L ALT 17 Alkaline Phosphatase 81 Total Protein 8.1 Albumin 3.2 L POC Urine HCG, Qual RPR Titer Nonreactive LABS NOTED. Assessment: 03/16/19 19:21 WITHDRAWAL SYMPTOMS. URI. C.O.P.D. EXACERBATION. Plan: CONTINUE DETOX. PATIENT REPORTS PERSISTENT NASAL CONGESTION WITH PRODUCTIVE COUGH (GREEN- COLORED PHLEGM) X SEVERAL DAYS. Z-PACK AND PREDNISONE TAPER ORDERED FOR TREATMENT OF URI AND LIKELY ASTHMA EXACERBATION.
[2019-03-16] MEDS: THIAMINE HCL 100 MG TABLET (FP) PO SCH (22:16)
[2019-03-16] MEDS: ATORVASTATIN CA 10 MG TABLET (FP) PO SCH (22:17)
[2019-03-16] MEDS: traZODone HCL 50 MG TABLET (FP) PO SCH (22:17)
[2019-03-16] MEDS: MONTELUKAST NA 10 MG TABLET PO SCH (22:17)
[2019-03-17] MEDS: chlordiazePOXIDE HCL 25 MG CAPSULE PO SCH ×4 (05:54→22:21)
[2019-03-17] MEDS: GABAPENTIN 300 MG CAPSULE (FP) PO SCH ×3 (05:54→22:21)
[2019-03-17] MEDS: metFORMIN HCL 500 MG TABLET (FP) PO SCH ×2 (07:23→17:10)
[2019-03-17] MEDS ORDERED: predniSONE 5 MG TABLET (UD) PO ONE (10:00)
[2019-03-17] MEDS ORDERED: predniSONE 10 MG TABLET (UD) PO SCH (10:00)
[2019-03-17] MEDS: MINERAL OIL/PETROLAT/WATER TOPICAL CREAM 454 GM JAR TP SCH ×2 (10:13→22:21)
[2019-03-17] MEDS: PANTOPRAZOLE 20 MG TABLET (FP) PO SCH (10:14)
[2019-03-17] MEDS: EMTRICITABINE/TENOFOV ALAFENAM (DESCOVY) TABLET PO SCH (10:14)
[2019-03-17] MEDS: NICOTINE 21 MG/24 HOURS TOPICAL PATCH TD SCH (10:14)
[2019-03-17] MEDS: AZITHROMYCIN 250 MG TABLET PO SCH (10:14)
[2019-03-17] MEDS: ASPIRIN 81 MG CHEWABLE TABLETS PO SCH (10:14)
[2019-03-17] MEDS: PRENATAL VITAMINS W/ FOLIC ACID TABLET (FP) PO SCH (10:14)
[2019-03-17] MEDS: SILVER SULFADIAZINE 1% TOP CREAM 50 GM JAR TP SCH ×2 (10:15→22:22)
[2019-03-17] MEDS: LISINOPRIL 5 MG TABLET (FP) PO SCH (10:15)
[2019-03-17] MEDS: DOLUTEGRAVIR SODIUM 50 MG TABLET (NON-FORMULARY) PO SCH (10:15)
[2019-03-17] MEDS: LISINOPRIL 10 MG TABLET (FP) PO SCH (10:21)
--- NOTE | 2019-03-17 15:50 | PN ---
[facility] CIWA - CIWA Score Nausea/Vomitin-No Nausea/No Vomiting Muscle Tremors: 2 Anxiety: 3 Agitation: 2 Paroxysmal Sweats: 2 Orientation: 0-Oriented Tacttile Disturbances: 1-Very Mild Itch/Numbness Auditory Disturbances: 0-None Visual Disturbances: 1-Very Mild Sensitivity Headache: 0-None Present CIWA-Ar Total Score: 11 S Progress Note (SOAP) Subjective: Sweating, Anxious, Restless, Chills. Patient reports That Current withdrawal Detox Symptoms in General Are Gradually Beginning to Diminish in Severity. Patient also reports that URI and congestion symptoms have improved slightly. Objective: PATIENT A & O X 3, OBSERVED AMBULATING ON DETOX UNIT UNASSISTED. IN NO ACUTE DISTRESS. 03/17/19 15:49 Vital Signs Temperature 96.3 F L 03/17/19 13:20 Pulse Rate 96 H 03/17/19 13:20 Respiratory Rate 20 03/17/19 13:20 Blood Pressure 148/94 03/17/19 13:20 O2 Sat by Pulse Oximetry (%) Laboratory Tests 03/15/19 03/16/19 03/16/19 18:15 06:08 08:00 WBC 8.4 RBC 4.07 Hgb 11.4 Hct 35.0 MCV 86.2 MCH 28.1 MCHC 32.6 RDW 16.9 H Plt Count 406 MPV 7.7 Sodium Potassium Chloride Carbon Dioxide Anion Gap BUN Creatinine Est GFR (CKD-EPI)AfAm Est GFR (CKD-EPI)NonAf POC Glucometer 178 Random Glucose Calcium Total Bilirubin AST ALT Alkaline Phosphatase Total Protein Albumin POC Urine HCG, Qual Negative RPR Titer 03/16/19 03/16/19 03/16/19 08:00 08:00 16:24 WBC RBC Hgb Hct MCV MCH MCHC RDW Plt Count MPV Sodium 137 Potassium 4.1 Chloride 104 Carbon Dioxide 25 Anion Gap 7 L BUN 13.8 Creatinine 0.8 Est GFR (CKD-EPI)AfAm 98.93 Est GFR (CKD-EPI)NonAf 85.36 POC Glucometer 228 Random Glucose 244 H Calcium 9.1 Total Bilirubin 0.8 AST 10 L ALT 17 Alkaline Phosphatase 81 Total Protein 8.1 Albumin 3.2 L POC Urine HCG, Qual RPR Titer Nonreactive 03/17/19 05:54 WBC RBC Hgb Hct MCV MCH MCHC RDW Plt Count MPV Sodium Potassium Chloride Carbon Dioxide Anion Gap BUN Creatinine Est GFR (CKD-EPI)AfAm Est GFR (CKD-EPI)NonAf POC Glucometer 181 Random Glucose Calcium Total Bilirubin AST ALT Alkaline Phosphatase Total Protein Albumin POC Urine HCG, Qual RPR Titer LABS NOTED. Assessment: 03/17/19 15:50 WITHDRAWAL SYMPTOMS. Plan: CONTINUE DETOX. CONTINUE TO MONITOR BLOOD PRESSURE.
[2019-03-17] MEDS: guaiFENesin 200 MG/10 ML 10 ML UNIT-DOSE CUPS PO PRN (20:39)
[2019-03-17] MEDS: traZODone HCL 50 MG TABLET (FP) PO SCH (22:21)
[2019-03-17] MEDS: MONTELUKAST NA 10 MG TABLET PO SCH (22:21)
[2019-03-17] MEDS: THIAMINE HCL 100 MG TABLET (FP) PO SCH (22:21)
[2019-03-17] MEDS: ATORVASTATIN CA 10 MG TABLET (FP) PO SCH (22:21)
[2019-03-17] MEDS: ACETAMINOPHEN 325 MG TABLET (FP) PO PRN (22:22)
[2019-03-18] MEDS ORDERED: chlordiazePOXIDE HCL 10 MG CAPSULE PO PRN
[2019-03-18] MEDS: GABAPENTIN 300 MG CAPSULE (FP) PO SCH ×3 (05:59→22:33)
[2019-03-18] MEDS: chlordiazePOXIDE HCL 10 MG CAPSULE PO SCH ×4 (05:59→22:33)
[2019-03-18] MEDS: guaiFENesin 200 MG/10 ML 10 ML UNIT-DOSE CUPS PO PRN ×2 (06:00→13:36)
[2019-03-18] MEDS: ALBUTEROL SO4 2.5/IPRATROPIUM 0.5 INH SOL 3 ML VIAL.NEB. NEB PRN (06:06)
[2019-03-18] MEDS: metFORMIN HCL 500 MG TABLET (FP) PO SCH ×2 (06:19→17:17)
[2019-03-18] MEDS ORDERED: predniSONE 10 MG TABLET (UD) PO ONE (10:00)
[2019-03-18] MEDS: DOLUTEGRAVIR SODIUM 50 MG TABLET (NON-FORMULARY) PO SCH (10:51)
[2019-03-18] MEDS: PRENATAL VITAMINS W/ FOLIC ACID TABLET (FP) PO SCH (10:52)
[2019-03-18] MEDS: AZITHROMYCIN 250 MG TABLET PO SCH (10:52)
[2019-03-18] MEDS: ASPIRIN 81 MG CHEWABLE TABLETS PO SCH (10:53)
[2019-03-18] MEDS: LISINOPRIL 5 MG TABLET (FP) PO SCH (10:53)
[2019-03-18] MEDS: PANTOPRAZOLE 20 MG TABLET (FP) PO SCH (10:53)
[2019-03-18] MEDS: EMTRICITABINE/TENOFOV ALAFENAM (DESCOVY) TABLET PO SCH (10:53)
[2019-03-18] MEDS: MINERAL OIL/PETROLAT/WATER TOPICAL CREAM 454 GM JAR TP SCH ×2 (10:54→22:38)
[2019-03-18] MEDS: SILVER SULFADIAZINE 1% TOP CREAM 50 GM JAR TP SCH ×2 (10:54→22:38)
[2019-03-18] MEDS: NICOTINE 21 MG/24 HOURS TOPICAL PATCH TD SCH (10:54)
[2019-03-18] MEDS: ACETAMINOPHEN 325 MG TABLET (FP) PO PRN (13:34)
--- NOTE | 2019-03-18 17:30 | PN ---
S CIWA - CIWA Score Nausea/Vomitin-No Nausea/No Vomiting Muscle Tremors: 2 Anxiety: 2 Agitation: 3 Paroxysmal Sweats: 2 Orientation: 0-Oriented Tacttile Disturbances: 0-None Auditory Disturbances: 0-None Visual Disturbances: 1-Very Mild Sensitivity Headache: 0-None Present CIWA-Ar Total Score: 10 BHS Progress Note (SOAP) Subjective: Anxious, Tremors, Sweating. Objective: PATIENT A & O X 3, OBSERVED AMBULATING ON DETOX UNIT UNASSISTED. IN NO ACUTE DISTRESS. 03/18/19 17:29 Vital Signs Temperature 97.9 F 03/18/19 13:58 Pulse Rate 94 H 03/18/19 13:58 Respiratory Rate 18 03/18/19 13:58 Blood Pressure 134/75 03/18/19 13:58 O2 Sat by Pulse Oximetry (%) Laboratory Tests 03/15/19 03/16/19 03/16/19 18:15 06:08 08:00 WBC 8.4 RBC 4.07 Hgb 11.4 Hct 35.0 MCV 86.2 MCH 28.1 MCHC 32.6 RDW 16.9 H Plt Count 406 MPV 7.7 Sodium Potassium Chloride Carbon Dioxide Anion Gap BUN Creatinine Est GFR (CKD-EPI)AfAm Est GFR (CKD-EPI)NonAf POC Glucometer 178 Random Glucose Calcium Total Bilirubin AST ALT Alkaline Phosphatase Total Protein Albumin POC Urine HCG, Qual Negative RPR Titer 03/16/19 03/16/19 03/16/19 08:00 08:00 16:24 WBC RBC Hgb Hct MCV MCH MCHC RDW Plt Count MPV Sodium 137 Potassium 4.1 Chloride 104 Carbon Dioxide 25 Anion Gap 7 L BUN 13.8 Creatinine 0.8 Est GFR (CKD-EPI)AfAm 98.93 Est GFR (CKD-EPI)NonAf 85.36 POC Glucometer 228 Random Glucose 244 H Calcium 9.1 Total Bilirubin 0.8 AST 10 L ALT 17 Alkaline Phosphatase 81 Total Protein 8.1 Albumin 3.2 L POC Urine HCG, Qual RPR Titer Nonreactive 03/17/19 03/17/19 03/18/19 05:54 16:21 05:58 WBC RBC Hgb Hct MCV MCH MCHC RDW Plt Count MPV Sodium Potassium Chloride Carbon Dioxide Anion Gap BUN Creatinine Est GFR (CKD-EPI)AfAm Est GFR (CKD-EPI)NonAf POC Glucometer 181 324 125 Random Glucose Calcium Total Bilirubin AST ALT Alkaline Phosphatase Total Protein Albumin POC Urine HCG, Qual RPR Titer 03/18/19 16:25 WBC RBC Hgb Hct MCV MCH MCHC RDW Plt Count MPV Sodium Potassium Chloride Carbon Dioxide Anion Gap BUN Creatinine Est GFR (CKD-EPI)AfAm Est GFR (CKD-EPI)NonAf POC Glucometer 315 Random Glucose Calcium Total Bilirubin AST ALT Alkaline Phosphatase Total Protein Albumin POC Urine HCG, Qual RPR Titer LABS NOTED. Assessment: 03/18/19 17:30 WITHDRAWAL SYMPTOMS. Plan: CONTINUE DETOX. INCREASE DAILY PO WATER INTAKE.
[2019-03-18] MEDS: MONTELUKAST NA 10 MG TABLET PO SCH (22:33)
[2019-03-18] MEDS: THIAMINE HCL 100 MG TABLET (FP) PO SCH (22:33)
[2019-03-18] MEDS: ATORVASTATIN CA 10 MG TABLET (FP) PO SCH (22:33)
[2019-03-18] MEDS: traZODone HCL 50 MG TABLET (FP) PO SCH (22:34)
[2019-03-19] MEDS: chlordiazePOXIDE HCL 10 MG CAPSULE PO SCH ×2 (06:10→17:01)
[2019-03-19] MEDS: GABAPENTIN 300 MG CAPSULE (FP) PO SCH ×3 (06:10→22:14)
[2019-03-19] MEDS: MENTHOL/PHENOL 1 EACH UD MM PRN (06:11)
[2019-03-19] MEDS: metFORMIN HCL 500 MG TABLET (FP) PO SCH ×2 (06:11→17:00)
[2019-03-19] MEDS: ALBUTEROL SO4 8 GM HFA INHALER IH PRN ×2 (06:27→11:00)
[2019-03-19] MEDS ORDERED: predniSONE 5 MG TABLET (UD) PO ONE (10:00)
[2019-03-19] MEDS: LISINOPRIL 5 MG TABLET (FP) PO SCH (10:56)
[2019-03-19] MEDS: EMTRICITABINE/TENOFOV ALAFENAM (DESCOVY) TABLET PO SCH (10:56)
[2019-03-19] MEDS: SILVER SULFADIAZINE 1% TOP CREAM 50 GM JAR TP SCH ×2 (10:56→22:15)
[2019-03-19] MEDS: PANTOPRAZOLE 20 MG TABLET (FP) PO SCH (10:56)
[2019-03-19] MEDS: ASPIRIN 81 MG CHEWABLE TABLETS PO SCH (10:57)
[2019-03-19] MEDS: PRENATAL VITAMINS W/ FOLIC ACID TABLET (FP) PO SCH (10:57)
[2019-03-19] MEDS: MINERAL OIL/PETROLAT/WATER TOPICAL CREAM 454 GM JAR TP SCH ×2 (10:57→22:15)
[2019-03-19] MEDS: NICOTINE 21 MG/24 HOURS TOPICAL PATCH TD SCH (10:57)
[2019-03-19] MEDS: DOLUTEGRAVIR SODIUM 50 MG TABLET (NON-FORMULARY) PO SCH (10:57)
[2019-03-19] MEDS: AZITHROMYCIN 250 MG TABLET PO SCH (10:58)
--- NOTE | 2019-03-19 11:26 | PN ---
[facility] CIWA - CIWA Score Nausea/Vomitin-No Nausea/No Vomiting Muscle Tremors: 1-None Visible, but [place] Anxiety: 2 Agitation: 0-Normal Activity Paroxysmal Sweats: 2 Orientation: 0-Oriented Tacttile Disturbances: 1-Very Mild Itch/Numbness Auditory Disturbances: 0-None Visual Disturbances: 1-Very Mild Sensitivity Headache: 0-None Present CIWA-Ar Total Score: 7 S Progress Note (SOAP) Subjective: c/o of interrupted sleep , b/l heel pain d/t heel spurs, chills and sweats Objective: 03/19/19 11:26 Vital Signs Temperature 97.3 F L 03/19/19 09:10 Pulse Rate 85 03/19/19 06:21 Respiratory Rate 18 03/19/19 09:10 Blood Pressure 130/79 03/19/19 06:21 O2 Sat by Pulse Oximetry (%) Laboratory Last Values WBC 8.4 K/mm3 (4.0-10.0) 03/16/19 08:00 RBC 4.07 M/mm3 (3.60-5.2) 03/16/19 08:00 Hgb 11.4 GM/dL (10.7-15.3) 03/16/19 08:00 Hct 35.0 % (32.4-45.2) 03/16/19 08:00 MCV 86.2 fl (80-96) 03/16/19 08:00 MCH 28.1 pg (25.7-33.7) 03/16/19 08:00 MCHC 32.6 g/dl (32.0-36.0) 03/16/19 08:00 RDW 16.9 % (11.6-15.6) H 03/16/19 08:00 Plt Count 406 K/MM3 (134-434) 03/16/19 08:00 MPV 7.7 fl (7.5-11.1) 03/16/19 08:00 Sodium 137 mmol/L (136-145) 03/16/19 08:00 Potassium 4.1 mmol/L (3.5-5.1) 03/16/19 08:00 Chloride 104 mmol/L (98-107) 03/16/19 08:00 Carbon Dioxide 25 mmol/L (21-32) 03/16/19 08:00 Anion Gap 7 MMOL/L (8-16) L 03/16/19 08:00 BUN 13.8 mg/dL (7-18) 03/16/19 08:00 Creatinine 0.8 mg/dL (0.55-1.3) 03/16/19 08:00 Est GFR (CKD-EPI)AfAm 98.93 03/16/19 08:00 Est GFR (CKD-EPI)NonAf 85.36 03/16/19 08:00 POC Glucometer 107 UNITS (80-120) 03/19/19 06:13 Random Glucose 244 mg/dL (74-106) H 03/16/19 08:00 Calcium 9.1 mg/dL (8.5-10.1) 03/16/19 08:00 Total Bilirubin 0.8 mg/dL (0.2-1) 03/16/19 08:00 AST 10 U/L (15-37) L 03/16/19 08:00 ALT 17 U/L (13-61) 03/16/19 08:00 Alkaline Phosphatase 81 U/L (45-117) 03/16/19 08:00 Total Protein 8.1 g/dl (6.4-8.2) 03/16/19 08:00 Albumin 3.2 g/dl (3.4-5.0) L 03/16/19 08:00 POC Urine HCG, Qual Negative 03/15/19 18:15 RPR Titer Nonreactive (NONREACTIVE) 03/16/19 08:00 Assessment: 03/19/19 11:27 Aox3 no acute distress ambulating in the unit withdrawal sx Plan: provide cane for ambulation continue detox d/c in AM continue to monitor
[2019-03-19] MEDS: MONTELUKAST NA 10 MG TABLET PO SCH (22:14)
[2019-03-19] MEDS: traZODone HCL 50 MG TABLET (FP) PO SCH (22:14)
[2019-03-19] MEDS: THIAMINE HCL 100 MG TABLET (FP) PO SCH (22:14)
[2019-03-19] MEDS: ATORVASTATIN CA 10 MG TABLET (FP) PO SCH (22:14)
[2019-03-19] MEDS: ACETAMINOPHEN 325 MG TABLET (FP) PO PRN (22:16)
[2019-03-19] MEDS: guaiFENesin 200 MG/10 ML 10 ML UNIT-DOSE CUPS PO PRN (22:16)
[2019-03-20] MEDS ORDERED: chlordiazePOXIDE HCL 10 MG CAPSULE PO ONE (05:00)
[2019-03-20] MEDS: guaiFENesin 200 MG/10 ML 10 ML UNIT-DOSE CUPS PO PRN (06:11)
[2019-03-20] MEDS: GABAPENTIN 300 MG CAPSULE (FP) PO SCH (06:34)
[2019-03-20] MEDS: metFORMIN HCL 500 MG TABLET (FP) PO SCH (06:34)
[2019-03-20] MEDS: ALBUTEROL SO4 2.5/IPRATROPIUM 0.5 INH SOL 3 ML VIAL.NEB. NEB PRN (06:58)
[2019-03-20] MEDS ORDERED: AZITHROMYCIN 250 MG TABLET PO ONE (07:00)
--- NOTE | 2019-03-20 08:35 | DS ---
[facility] Detox Discharge Summary Admission Date: 03/15/19 Discharge Date: 03/20/19 - History Present History: Alcohol Dependence, Cannabis Dependence, Cocaine Dependence Additional Comments: Patient stable, tolerate detox well. Patient to follow up with after care at [facility]. Patient to follow up with primary care provider within a a week at [facility] [phone]. Pertinent Past History: DM II Asthma URI Vital Signs Temperature 96.7 F L 03/20/19 09:15 Pulse Rate 109 H 03/20/19 09:15 Respiratory Rate 16 03/20/19 09:15 Blood Pressure 133/86 03/20/19 09:15 O2 Sat by Pulse Oximetry (%) Laboratory Last Values WBC 8.4 K/mm3 (4.0-10.0) 03/16/19 08:00 RBC 4.07 M/mm3 (3.60-5.2) 03/16/19 08:00 Hgb 11.4 GM/dL (10.7-15.3) 03/16/19 08:00 Hct 35.0 % (32.4-45.2) 03/16/19 08:00 MCV 86.2 fl (80-96) 03/16/19 08:00 MCH 28.1 pg (25.7-33.7) 03/16/19 08:00 MCHC 32.6 g/dl (32.0-36.0) 03/16/19 08:00 RDW 16.9 % (11.6-15.6) H 03/16/19 08:00 Plt Count 406 K/MM3 (134-434) 03/16/19 08:00 MPV 7.7 fl (7.5-11.1) 03/16/19 08:00 Sodium 137 mmol/L (136-145) 03/16/19 08:00 Potassium 4.1 mmol/L (3.5-5.1) 03/16/19 08:00 Chloride 104 mmol/L (98-107) 03/16/19 08:00 Carbon Dioxide 25 mmol/L (21-32) 03/16/19 08:00 Anion Gap 7 MMOL/L (8-16) L 03/16/19 08:00 BUN 13.8 mg/dL (7-18) 03/16/19 08:00 Creatinine 0.8 mg/dL (0.55-1.3) 03/16/19 08:00 Est GFR (CKD-EPI)AfAm 98.93 03/16/19 08:00 Est GFR (CKD-EPI)NonAf 85.36 03/16/19 08:00 POC Glucometer 106 UNITS (80-120) 03/20/19 05:54 Random Glucose 244 mg/dL (74-106) H 03/16/19 08:00 Calcium 9.1 mg/dL (8.5-10.1) 03/16/19 08:00 Total Bilirubin 0.8 mg/dL (0.2-1) 03/16/19 08:00 AST 10 U/L (15-37) L 03/16/19 08:00 ALT 17 U/L (13-61) 03/16/19 08:00 Alkaline Phosphatase 81 U/L (45-117) 03/16/19 08:00 Total Protein 8.1 g/dl (6.4-8.2) 03/16/19 08:00 Albumin 3.2 g/dl (3.4-5.0) L 03/16/19 08:00 POC Urine HCG, Qual Negative 03/15/19 18:15 RPR Titer Nonreactive (NONREACTIVE) 03/16/19 08:00 Aox3 no acute distress + poor dentition, EENT WNL Full ROM no gait disturbance No edema or erythema - Physical Exam Results Vital Signs: Vital Signs Temperature 97.6 F 03/20/19 06:31 Pulse Rate 91 H 03/20/19 06:31 Respiratory Rate 18 03/20/19 06:31 Blood Pressure 133/82 03/20/19 06:31 O2 Sat by Pulse Oximetry (%) - Treatment Hospital Course: Detox Protocol Followed, Detoxed Safely, Responded well, Discharged Condition Good, Rehab Referral Accepted Patient has Accepted a Rehab Referral to: [facility] - Medication Discharge Medications: Ambulatory Orders traZODone HCL [Trazodone HCl] 50 mg PO HS #30 tablet 09/19/16 Albuterol Sulfate Inhaler - [Ventolin HFA Inhaler -] 2 inh IH Q4H PRN #1 inhaler 03/18/19 Aspirin [ASA -] 81 mg PO DAILY 30 Days #30 tab.chew 03/18/19 Dolutegravir Sodium [Tivicay] 1 tab PO DAILY 30 Days #30 tablet 03/18/19 Emtricitabine/Tenofov Alafenam [Descovy 200-25 mg Tablet (Nf)] 1 tab PO DAILY 30 Days #30 tablet 03/18/19 Gabapentin [Neurontin -] 600 mg PO TID 30 Days #90 capsule 03/18/19 Lisinopril 5 mg PO DAILY 30 Days #30 tablet 03/18/19 Metformin HCl [Glucophage] 1,000 mg PO BID 30 Days #60 tablet 03/18/19 Montelukast Sodium [Singulair] 10 mg PO DAILY 30 Days #30 tablet 03/18/19 Pantoprazole Sodium [Protonix -] 20 mg PO DAILY 30 Days #30 tablet.ec 03/18/19 Pravastatin Sodium 20 mg PO HS 30 Days #30 tablet 03/18/19 Sitagliptin Phosphate [Januvia] 100 mg PO DAILY 30 Days #30 tablet 03/18/19 traZODone HCL [Trazodone HCl] 50 mg PO HS #30 tablet 03/18/19 - Diagnosis (1) Alcohol dependence with uncomplicated withdrawal Status: Acute (2) Cannabis dependence Status: Chronic (3) Cocaine dependence Status: Chronic (4) DM Diabetes mellitus type 2 Status: Chronic (5) Diabetic peripheral neuropathy Status: Chronic (6) Essential hypertension Status: Chronic (7) History of schizophrenia Status: Chronic (8) Human immunodeficiency virus infection Status: Chronic (9) Nicotine dependence Status: Chronic - AMA Did Patient Leave Against Medical Advice: No
[2019-03-20 09:16] VITALS: BP 133/86; PULSE 109; TEMP 96.7
[2019-03-20] MEDS: EMTRICITABINE/TENOFOV ALAFENAM (DESCOVY) TABLET PO SCH (10:45)
[2019-03-20] MEDS: MINERAL OIL/PETROLAT/WATER TOPICAL CREAM 454 GM JAR TP SCH (10:46)
[2019-03-20] MEDS: PRENATAL VITAMINS W/ FOLIC ACID TABLET (FP) PO SCH (10:46)
[2019-03-20] MEDS: PANTOPRAZOLE 20 MG TABLET (FP) PO SCH (10:47)
[2019-03-20] MEDS: LISINOPRIL 5 MG TABLET (FP) PO SCH (10:47)
[2019-03-20] MEDS: ASPIRIN 81 MG CHEWABLE TABLETS PO SCH (10:47)
[2019-03-20] MEDS: NICOTINE 21 MG/24 HOURS TOPICAL PATCH TD SCH (10:47)
[2019-03-20] MEDS: DOLUTEGRAVIR SODIUM 50 MG TABLET (NON-FORMULARY) PO SCH (10:48)
[2019-03-20] MEDS: MENTHOL/PHENOL 1 EACH UD MM PRN (10:50)
== END 2019-03-20 11:31 | disposition other institution (70) | DRG 774 ==
LOC: YASAS 16:40 → Y3N 20:29
PROVIDERS: ADMIT Allergy & Immunology; ATTEND Allergy & Immunology
PROC: HZ2ZZZZ Detoxification Services for Substance Abuse Treatment (ICD-10-PCS; principal; 2019-03-15)
DX: F10.230 Alcohol dependence with withdrawal, uncomplicated (principal); F14.20 Cocaine dependence, uncomplicated; F12.20 Cannabis dependence, uncomplicated; F17.210 Nicotine dependence, cigarettes, uncomplicated; F19.24 Other psychoactive substance dependence with psychoactive substance-induced mood disorder; F20.9 Schizophrenia, unspecified; Z21 Asymptomatic human immunodeficiency virus [HIV] infection status; I10 Essential (primary) hypertension; G47.00 Insomnia, unspecified; J06.9 Acute upper respiratory infection, unspecified; J45.901 Unspecified asthma with (acute) exacerbation; J44.1 Chronic obstructive pulmonary disease with (acute) exacerbation; E11.42 Type 2 diabetes mellitus with diabetic polyneuropathy; Z79.84 Long term (current) use of oral hypoglycemic drugs; E66.01 Morbid (severe) obesity due to excess calories; Z68.44 Body mass index [BMI] 60.0-69.9, adult; L97.501 Non-pressure chronic ulcer of other part of unspecified foot limited to breakdown of skin; M77.32 Calcaneal spur, left foot; M77.31 Calcaneal spur, right foot; Z86.19 Personal history of other infectious and parasitic diseases
CPT/HCPCS: 36415; 80053; 81025; 82962; 85027; 86593; 94640

== ENCOUNTER 2019-07-01 13:39 | Inpatient (IN) | payer OTHER ==
[2019-07-01 16:36] VITALS: BMI 60.5
--- NOTE | 2019-07-01 19:49 | HP ---
CIWA Score Nausea/Vomitin-Mild Nausea/No Vomiting Muscle Tremors: 3 Anxiety: 3 Agitation: 0-Normal Activity Paroxysmal Sweats: 2 Orientation: 1-Uncertain about Date Tacttile Disturbances: 0-None Auditory Disturbances: 0-None Visual Disturbances: 0-None Headache: 4-Moderately Severe CIWA-Ar Total Score: 14 - Admission Criteria OASAS Guidelines: Admission for Medically Managed Detox: Requires at least one of the followin. CIWA greater than 12 2. Seizures within the past 24 hours 3. Delirium tremens within the past 24 hours 4. Hallucinations within the past 24 hours 5. Acute intervention needed for co occurring medical disorder 6. Acute intervention needed for co occurring psychiatric disorder 7. Severe withdrawal that cannot be handled at a lower level of care (continued vomiting, continued diarrhea, abnormal vital signs) requiring intravenous medication and/or fluids 8. Admitting History and Physical - Past Medical History [employer]: Yes: Peripheral Neuropathy Cardiovascular: Yes: HTN Pulmonary: Yes: Asthma ...LMP: 08/18/12 ...: No Infectious Disease: Yes: HIV Psych: Yes: Schizophrenia Endocrine: Yes: Diabetes Mellitus - Past Surgical History Past Surgical History: Yes: Hernia Repair (2014.), Tubal Ligation (2002) - Smoking History Smoking history: Current every day smoker Have you smoked in the past 12 months: Yes Aproximately how many cigarettes per day: 20 - Alcohol/Substance Use Hx Alcohol Use: Yes Number of Drinks Daily: 36 (Beers, Vodka, Wine.) History of Substance Use: reports: Cocaine Date of Last Use: 03/15/19 - Social History ADL: Independent Occupation: None Currently. History of Recent Travel: No Admission [facility] Chief Complaint: Alcohol withdrawal symptoms Allergies/Adverse Reactions: Allergies Allergy/AdvReac Type Severity Reaction Status Date / Time No Known Allergies Allergy Verified 07/01/19 19:11 History of Present Illness: 53 years old female with a long history of alcohol dependence and prior multiple admissions is seeking admission to detox. Last admission as for the period 03/15/2019- 03/20/2019 and she reports that she relapsed a couple of days post discharge.. She has medical history of DM type 2, asthma, hypertension , morbid obesity, HIV+, neuropathy, genital herpes and psych history of schizophrenia, depression and anxiety. She reports suicide attempt in 2014 and denies suicidal ideation at this time. She reports + eye turn out and denies alcohol related seizures and blackouts. Exam Limitations: No Limitations - Ebola screening Have you traveled outside of the country in the last 21 days: No Have you had contact with anyone from an Ebola affected area: No Do you have a fever: No - Review of Systems Constitutional: Chills, Malaise, Night Sweats, Changes in sleep EENT: reports: No Symptoms Reported Respiratory: reports: No Symptoms reported Cardiac: reports: No Symptoms Reported GI: reports: Nausea, Poor Fluid Intake, Abdominal cramping : reports: No Symptoms Reported Musculoskeletal: reports: Back Pain, Joint Pain, Muscle Pain Integumentary: reports: Dryness, Flushing Neuro: reports: Headache, Tremors Endocrine: reports: No Symptoms Reported Hematology: reports: No Symptoms Reported Psychiatric: reports: Mood/Affect Appropiate, Anxious, Depressed Other Systems: Reviewed and Negative Patient History - Patient Medical History Hx Anemia: No Hx Asthma: Yes (Albuterol) Hx Chronic Obstructive Pulmonary Disease (COPD): No Hx Cancer: No Hx Cardiac Disorders: No Hx Congestive Heart Failure: No Hx Hypertension: Yes Hx Pacemaker: No HX Cerebrovascular Accident: No Hx Seizures: No Hx Dementia: No Hx Diabetes: Yes (Metformin) Hx Gastrointestinal Disorders: No Hx Liver Disease: No Hx Genitourinary Disorders: No Hx Sexually Transmitted Disorders: No Hx Renal Disease (ESRD): No Hx Thyroid Disease: No Hx Human Immunodeficiency Virus (HIV): Yes (Not on medication at this time) Hx Hepatitis C: No (Last Tested within last 3 months: NEGATIVE.) Hx Depression: No Hx Suicide Attempt: Yes (Attempt in 2014. Denies suicidal ideation at this time) Hx Bipolar Disorder: No Hx Schizophrenia: Yes - Patient Surgical History Past Surgical History: Yes Hx Neurologic Surgery: No Hx Cataract Extraction: No Hx Cardiac Surgery: No Hx Lung Surgery: No Hx Breast Surgery: No Hx Breast Biopsy: No Hx Abdominal Surgery: Yes (umbilical hernia repair in 2013) Hx Appendectomy: No Hx Cholecystectomy: No Hx Genitourinary Surgery: No Hx Section: No Hx Orthopedic Surgery: No Other Surgical History: tubal ligation 2002 Anesthesia Reaction: No - PPD History Previous Implant?: Yes (PPD POSITIVE. TREATED WITH INH) Implanted On Prior [facility] Admission?: No PPD to be Administered?: No - Reproductive History Patient is a Female of Child Bearing Age (11 -55 yrs old): Yes Last Menstrual Period: 08/18/12 LMP comment: MENOPAUSAL Patient : No - Smoking Cessation Smoking history: Current every day smoker Have you smoked in the past 12 months: Yes Aproximately how many cigarettes per day: 20 Cigars Per Day: 1 Hx Chewing Tobacco Use: No Initiated information on smoking cessation: Yes 'Breaking Loose' booklet given: 07/01/19 - Substance & Tx. History Hx Alcohol Use: Yes Hx Substance Use: Yes Substance Use Type: Alcohol, Cocaine Hx Substance Use Treatment: Yes - Substances abused Alcohol Substance route: Oral Frequency: Daily Amount used: 6 (16oz) beers Age of first use: 18 Date of last use: 07/01/19 Crack Substance route: Smoking Frequency: Daily Amount used: $100/day Age of first use: 23 Date of last use: 06/30/19 Admission Physical Exam [facility] - Vital Signs Vital Signs: Vital Signs - 24 hr 07/01/19 07/01/19 16:32 19:15 Temperature 97.6 F 97.6 F Pulse Rate 98 H Respiratory 14 98 H Rate Blood Pressure 144/90 144/90 - Physical General Appearance: Yes: Moderate Distress, Tremorous, Sweating, Anxious HEENTM: Yes: Within Normal Limits Respiratory: Yes: Lungs Clear, Normal Breath Sounds, No Respiratory Distress Neck: Yes: Within Normal Limits Breast: Yes: Breast Exam Deferred Cardiology: Yes: Tachycardia Abdominal: Yes: Normal Bowel Sounds, Protuberent Genitourinary: Yes: Within Normal Limits Back: Yes: Normal Inspection Musculoskeletal: Yes: Back pain, Muscle Pain Extremities: Yes: Normal Inspection Neurological: Yes: Within Normal Limits, Alert, Normal Mood/Affect Integumentary: Yes: Warm Lymphatic: Yes: Within Normal Limits - Diagnostic (1) Morbid obesity Current Visit: Yes Status: Chronic (2) Alcohol dependence with uncomplicated withdrawal Current Visit: Yes Status: Acute (3) Asthma Current Visit: Yes Status: Chronic (4) Cannabis dependence Current Visit: No Status: Chronic (5) Cocaine dependence Current Visit: Yes Status: Chronic (6) DM Diabetes mellitus type 2 Current Visit: Yes Status: Chronic (7) Diabetic peripheral neuropathy Current Visit: Yes Status: Chronic (8) Essential hypertension Current Visit: Yes Status: Chronic (9) Human immunodeficiency virus infection Current Visit: Yes Status: Chronic (10) Nicotine dependence Current Visit: Yes Status: Chronic (11) History of depression Current Visit: Yes Status: Suspected Cleared for Admission S - Detox or Rehab [facility] Level of Care: Medically Managed Detox Regimen/Protocol: Librium Claeared for Rehab Admission: No Breathalyzer - Breathalyzer Breathalyzer: 0 Urine Drug Screen - Test Device Lot number: [id number] Expiration date: 04/27/21 - Control Is test valid?: Yes - Results Drug screen NEGATIVE: No Urine drug screen results: THC-Marijuana, JENNIFER-Cocaine Inpatient Rehab Admission - Rehab Decision to Admit Inpatient rehab admission?: No
[2019-07-01] MEDS ORDERED: BISMUTH SUBSALICYLATE 524 MG/30 ML UD PO PRN (20:05)
[2019-07-01] MEDS ORDERED: chlordiazePOXIDE HCL 10 MG CAPSULE PO PRN (20:05)
[2019-07-01] MEDS ORDERED: MENTHOL/PHENOL 1 EACH UD MM PRN (20:05)
[2019-07-01] MEDS ORDERED: IBUPROFEN 400 MG TABLET (FP) PO PRN (20:05)
[2019-07-01] MEDS ORDERED: NICOTINE POLACRILEX 2 MG GUM BUC PRN (20:05)
[2019-07-01] MEDS ORDERED: METHOCARBAMOL 500 MG TABLET PO PRN (20:05)
[2019-07-01] MEDS ORDERED: MAGNESIUM CITRATE 300 ML BOTTLE PO PRN (20:05)
[2019-07-01] MEDS ORDERED: MAG HYDROX/AL HYDROX/SIMETH 30 ML UNIT-DOSE CUP PO PRN (20:05)
[2019-07-01] MEDS ORDERED: MELATONIN 5 MG TABLETS PO PRN (20:05)
[2019-07-01] MEDS ORDERED: MAGNESIUM HYDROX 2400MG/30ML ORAL SUSPENSION 30 ML CUP PO PRN (20:05)
[2019-07-01] MEDS ORDERED: ACETAMINOPHEN 325 MG TABLET (FP) PO PRN ×2 (20:05)
[2019-07-01] MEDS ORDERED: hydrOXYzine PAMOATE 25 MG CAPSULE (FP) PO PRN (20:05)
[2019-07-01] MEDS ORDERED: ALBUTEROL SO4 8 GM HFA INHALER IH PRN (20:08)
[2019-07-01] MEDS: chlordiazePOXIDE HCL 25 MG CAPSULE PO SCH (22:33)
[2019-07-01] MEDS: THIAMINE HCL 100 MG TABLET (FP) PO SCH (22:33)
[2019-07-02] MEDS: chlordiazePOXIDE HCL 25 MG CAPSULE PO SCH ×3 (06:20→22:15)
[2019-07-02] MEDS: metFORMIN HCL 500 MG TABLET (FP) PO SCH ×2 (07:48→17:23)
--- NOTE | 2019-07-02 09:04 | PN ---
[facility] CIWA - CIWA Score Nausea/Vomitin-Mild Nausea/No Vomiting Muscle Tremors: 3 Anxiety: 4-Mod. Anxious/Guarded Agitation: 1-Slight > Activity Paroxysmal Sweats: 2 Orientation: 0-Oriented Tacttile Disturbances: 0-None Auditory Disturbances: 0-None Visual Disturbances: 0-None Headache: 1-Very Mild CIWA-Ar Total Score: 12 [facility] Progress Note (SOAP) Subjective: 53 years old female admitted on 07/01/19 for alcohol withdrawal sx management treating with librium detox regimen feeling ok today interesting in discharge date of 07/05/19 and motivating to go to aftercare Objective: 07/02/19 09:08 Vital Signs Temperature 97 F L 07/02/19 05:41 Pulse Rate 79 07/02/19 05:41 Respiratory Rate 20 07/02/19 05:41 Blood Pressure 147/99 07/02/19 05:41 O2 Sat by Pulse Oximetry (%) 07/02/19 09:08 lab pending Assessment: 07/02/19 09:08 alcohol withdrawal Plan: librium regiment
--- NOTE | 2019-07-02 09:23 | CONSULT ---
[facility] Psychiatric Consult - Data Date of interview: 07/02/19 Admission source: [facility] Identifying data: Patient is a 53 year old single female, mother of four, unemployed, domiciled, and is supported by [facility]. This is one of multiple admissions for patient. Patient admitted to for alcohol and cocaine dependence. Substance Abuse History: - Smoking Cessation. Smoking history: Current every day smoker. Have you smoked in the past 12 months: Yes. Aproximately how many cigarettes per day: 20. Cigars Per Day: 1. Hx Chewing Tobacco Use: No. Initiated information on smoking cessation: Yes. 'Breaking Loose' booklet given : 07/01/19. - Substance & Tx. History. Hx Alcohol Use: Yes. Hx Substance Use : Yes. Substance Use Type: Alcohol, Cocaine. Hx Substance Use Treatment: Yes. - Substances abused. Alcohol. Substance route: Oral. Frequency: Daily. Amount used: 6 (16oz) beers. Age of first use: 18. Date of last use: . Crack. Substance route: Smoking. Frequency: Daily. Amount used: $100/ day. Age of first use: 23. Date of last use: 06/30/19 Medical History: Medical profile is remarkable for morbid obesity, bronchial asthma, hypertension, HIV infection since 1996 (on ART medications), peripheral neuropathy, positive PPD (treated with INH/B6 in 1990), antecedent of umbilical herniorraphy, tubal ligation and history of treatment of syphilis. Psychiatric History: Patient's first psychiatric contact was at 22 years of age after endorsing suicidal ideation while at [facility]. Reports being diagnosed with depression and was prescribed haldol 10mg HS?? After being release from [facility] she continued treatment at an outpatient clinic, continued to accept haldol, and her diagnosis was revised to schizophrenia. Ms. Tai reports history of psychiatric hospitalizations ([facility], [facility], [facility]). Patient's most recent OPD was at [place] approximately one year ago and was prescribed seroquel 100mg + Trazodone 50mg HS. Ms. Tai reports history of three suicide attempts ( ingested rat poison + 2 overdoses). At present patient denies auditory/visual hallucinations, suicidal/homicidal ideation. Physical/Sexual Abuse/Trauma History: denies. Mental Status Exam - Mental Status Exam Alert and Oriented to: Time, Place, Person Cognitive Function: Good Patient Appearance: Well Groomed Mood: Sad Affect: Appropriate Patient Behavior: Appropriate, Cooperative Speech Pattern: Appropriate Voice Loudness: Normal Thought Process: Intact, Goal Oriented Thought Disorder: Not Present Hallucinations: Denies Suicidal Ideation: Denies Homicidal Ideation: Denies Insight/Judgement: Poor Sleep: Poorly Appetite: Fair Muscle strength/Tone: Normal Gait/Station: Normal Psychiatric Findings - Problem List ([place] 1, 2,3) (1) Alcohol dependence with uncomplicated withdrawal Status: Acute (2) Cocaine dependence Status: Chronic (3) Nicotine dependence Status: Acute (4) Cannabis dependence Status: Chronic (5) History of schizophrenia Status: Chronic - Initial Treatment Plan Initial Treatment Plan: Psychoeducation provided. Detoxification in progress. Will order Seroquel 50mg HS. Benefits and side effects discussed. Verbal consent given.
[2019-07-02 10:09] LABS: HEMATOCRIT 37.5 % (32.4-45.2); HEMOGLOBIN 12.3 GM/dL (10.7-15.3); MCH 27.9 pg (25.7-33.7); MCHC 32.8 g/dl (32.0-36.0); MEAN CELL VOLUME 84.9 fl (80-96); MEAN PLT VOLUME 7.9 fl (7.5-11.1); PLATELET COUNT 369 K/MM3 (134-434); RBC 4.42 M/mm3 (3.60-5.2); RDW 16.8 % (11.6-15.6); WHITE BLOOD COUNT 7.5 K/mm3 (4.0-10.0)
[2019-07-02] MEDS: ASPIRIN 81 MG CHEWABLE TABLETS PO SCH (10:16)
[2019-07-02] MEDS: PRENATAL VITAMINS W/ FOLIC ACID TABLET (FP) PO SCH (10:16)
[2019-07-02] MEDS: NICOTINE 14 MG/24 HOURS TOPICAL PATCH TD SCH (10:17)
[2019-07-02 10:27] LABS: ALBUMIN 3.1 g/dl (3.4-5.0); BILIRUBIN,TOTAL 0.3 mg/dL (0.2-1); BLOOD UREA NITROGEN 8.8 mg/dL (7-18); CALCIUM 8.5 mg/dL (8.5-10.1); CREATININE 0.8 mg/dL (0.55-1.3); POTASSIUM 3.9 mmol/L (3.5-5.1); TOT PROT 7.8 g/dl (6.4-8.2)
--- NOTE | 2019-07-02 14:40 | EKG ---
Test Reason : Blood Pressure : / mmHG Vent. Rate : 081 BPM Atrial Rate : 081 BPM P-R Int : 150 ms QRS Dur : 086 ms QT Int : 430 ms P-R-T Axes : 055 060 063 degrees QTc Int : 499 ms NORMAL SINUS RHYTHM NONSPECIFIC T WAVE ABNORMALITY ABNORMAL ECG WHEN COMPARED WITH ECG OF 18-SEP-2016 20:31, NONSPECIFIC T WAVE ABNORMALITY NOW EVIDENT IN LATERAL LEADS Confirmed by WENDIE BANKS, FELISHA ([id number]) on 07/02/2019 2:39:54 PM Referred By: Confirmed By:FELISHA PRESSLEY MD
--- NOTE | 2019-07-02 18:18 | PN ---
S Progress Note Note: c/o pain in the left heel , reports known heel spur . Vital Signs - 24 hr 07/01/19 07/02/19 07/02/19 19:15 00:30 05:41 Temperature 97.6 F 97 F L Pulse Rate 98 H 79 Respiratory 14 20 20 Rate Blood Pressure 144/90 147/99 07/02/19 07/02/19 08:50 12:46 Temperature 97.3 F L 98.4 F Pulse Rate 82 81 Respiratory 20 18 Rate Blood Pressure 128/80 124/71 O : mild tenderness to palpation left calcaneus, skin intact . Full ROM left ankle, no edema, no deformity noted . P : ice pack , advised to wear shoes when walking on hard surfaces . (has own shoes bedside )
[2019-07-02] MEDS: THIAMINE HCL 100 MG TABLET (FP) PO SCH (22:15)
[2019-07-02] MEDS: QUEtiapine FUMARATE 50 MG TABLET PO SCH (22:15)
[2019-07-03] MEDS: chlordiazePOXIDE 5 MG CAPSULE PO SCH ×3 (05:53→22:06)
[2019-07-03] MEDS: metFORMIN HCL 500 MG TABLET (FP) PO SCH ×2 (07:45→16:55)
[2019-07-03] MEDS: ASPIRIN 81 MG CHEWABLE TABLETS PO SCH (09:48)
[2019-07-03] MEDS: PRENATAL VITAMINS W/ FOLIC ACID TABLET (FP) PO SCH (09:48)
[2019-07-03] MEDS: NICOTINE 14 MG/24 HOURS TOPICAL PATCH TD SCH (09:48)
--- NOTE | 2019-07-03 12:38 | PN ---
S CIWA - CIWA Score Nausea/Vomitin-Mild Nausea/No Vomiting Muscle Tremors: 1-None Visible, but [place] Anxiety: 0-No Anxiety, at Ease Agitation: 1-Slight > Activity Paroxysmal Sweats: No Perspiration Orientation: 0-Oriented Tacttile Disturbances: 0-None Auditory Disturbances: 0-None Visual Disturbances: 0-None Headache: 3-Moderate CIWA-Ar Total Score: 6 [facility] Progress Note (SOAP) Subjective: Patient examined earlier with minimal complaints of withdrawals. Patient hell pain better. Objective: 07/03/19 12:37 BP: 120/69 P:86 R:20 T:97.6 Laboratory 07/01/19 07/02/19 07/02/19 16:37 06:20 08:00 WBC 7.5 K/mm3 K/mm3 (4.0-10.0) RBC 4.42 M/mm3 M/mm3 (3.60-5.2) Hgb 12.3 GM/dL GM/dL (10.7-15.3) Hct 37.5 % % (32.4-45.2) MCV 84.9 fl fl (80-96) MCH 27.9 pg pg (25.7-33.7) MCHC 32.8 g/dl g/dl (32.0-36.0) RDW 16.8 % H % (11.6-15.6) Plt Count 369 K/MM3 K/MM3 (134-434) MPV 7.9 fl fl (7.5-11.1) Sodium Potassium Chloride Carbon Dioxide Anion Gap BUN Creatinine Est GFR (CKD-EPI)AfAm Est GFR (CKD-EPI)NonAf POC Glucometer 156 UNITS UNITS (80-120) Random Glucose Calcium Total Bilirubin AST ALT Alkaline Phosphatase Total Protein Albumin POC Urine HCG, Qual Negative RPR Titer 07/02/19 07/02/19 07/02/19 08:00 08:00 17:18 WBC RBC Hgb Hct MCV MCH MCHC RDW Plt Count MPV Sodium 135 mmol/L L mmol/L (136-145) Potassium 3.9 mmol/L mmol/L (3.5-5.1) Chloride 102 mmol/L mmol/L (98-107) Carbon Dioxide 27 mmol/L mmol/L (21-32) Anion Gap 6 MMOL/L L MMOL/L (8-16) BUN 8.8 mg/dL mg/dL (7-18) Creatinine 0.8 mg/dL mg/dL (0.55-1.3) Est GFR (CKD-EPI)AfAm 98.93 Est GFR (CKD-EPI)NonAf 85.36 POC Glucometer 172 UNITS UNITS (80-120) Random Glucose 184 mg/dL H mg/dL (74-106) Calcium 8.5 mg/dL mg/dL (8.5-10.1) Total Bilirubin 0.3 mg/dL mg/dL (0.2-1) AST 13 U/L L U/L (15-37) ALT 21 U/L U/L (13-61) Alkaline Phosphatase 81 U/L U/L (45-117) Total Protein 7.8 g/dl g/dl (6.4-8.2) Albumin 3.1 g/dl L g/dl (3.4-5.0) POC Urine HCG, Qual RPR Titer Nonreactive (NONREACTIVE) 07/03/19 05:52 WBC RBC Hgb Hct MCV MCH MCHC RDW Plt Count MPV Sodium Potassium Chloride Carbon Dioxide Anion Gap BUN Creatinine Est GFR (CKD-EPI)AfAm Est GFR (CKD-EPI)NonAf POC Glucometer 130 UNITS UNITS (80-120) Random Glucose Calcium Total Bilirubin AST ALT Alkaline Phosphatase Total Protein Albumin POC Urine HCG, Qual RPR Titer Assessment: 07/03/19 12:38 1. Alcohol Dependence with withdrawal 2. Abnormal labs noted Plan: 1. Continue Librium Detox protocol. Encourage hydration. 2. Abnormalities consistent with poor nutrition. CBC normal from yesterday. Elevated glucose noted but is non-fasting value. However, will repeat a fasting glucose tomorrow morning. Dr. Gandara
[2019-07-03] MEDS: QUEtiapine FUMARATE 50 MG TABLET PO SCH (22:06)
[2019-07-03] MEDS: THIAMINE HCL 100 MG TABLET (FP) PO SCH (22:06)
[2019-07-04] MEDS ORDERED: chlordiazePOXIDE HCL 10 MG CAPSULE PO PRN
[2019-07-04] MEDS: chlordiazePOXIDE HCL 10 MG CAPSULE PO SCH ×3 (06:39→22:34)
[2019-07-04] MEDS: metFORMIN HCL 500 MG TABLET (FP) PO SCH ×2 (07:09→17:35)
[2019-07-04] MEDS: ASPIRIN 81 MG CHEWABLE TABLETS PO SCH (10:40)
[2019-07-04] MEDS: PRENATAL VITAMINS W/ FOLIC ACID TABLET (FP) PO SCH (10:40)
[2019-07-04] MEDS: NICOTINE 14 MG/24 HOURS TOPICAL PATCH TD SCH (10:40)
--- NOTE | 2019-07-04 13:36 | PN ---
[facility] CIWA - CIWA Score Nausea/Vomitin-No Nausea/No Vomiting Muscle Tremors: None Anxiety: 2 Agitation: 0-Normal Activity Paroxysmal Sweats: 1-Minimal Palms Moist Orientation: 0-Oriented Tacttile Disturbances: 0-None Auditory Disturbances: 0-None Visual Disturbances: 0-None Headache: 0-None Present CIWA-Ar Total Score: 3 [facility] Progress Note (SOAP) Subjective: c/o mild withdrawal symptoms. Objective: 07/04/19 13:35 Vital Signs 07/04/19 07/04/19 06:57 08:51 Temperature 97.3 F L 97.6 F Pulse Rate 79 80 Respiratory 18 19 Rate Blood Pressure 144/70 129/82 Laboratory Last Values WBC 7.5 K/mm3 (4.0-10.0) 07/02/19 08:00 RBC 4.42 M/mm3 (3.60-5.2) 07/02/19 08:00 Hgb 12.3 GM/dL (10.7-15.3) 07/02/19 08:00 Hct 37.5 % (32.4-45.2) 07/02/19 08:00 MCV 84.9 fl (80-96) 07/02/19 08:00 MCH 27.9 pg (25.7-33.7) 07/02/19 08:00 MCHC 32.8 g/dl (32.0-36.0) 07/02/19 08:00 RDW 16.8 % (11.6-15.6) H 07/02/19 08:00 Plt Count 369 K/MM3 (134-434) 07/02/19 08:00 MPV 7.9 fl (7.5-11.1) 07/02/19 08:00 Sodium 135 mmol/L (136-145) L 07/02/19 08:00 Potassium 3.9 mmol/L (3.5-5.1) 07/02/19 08:00 Chloride 102 mmol/L (98-107) 07/02/19 08:00 Carbon Dioxide 27 mmol/L (21-32) 07/02/19 08:00 Anion Gap 6 MMOL/L (8-16) L 07/02/19 08:00 BUN 8.8 mg/dL (7-18) 07/02/19 08:00 Creatinine 0.8 mg/dL (0.55-1.3) 07/02/19 08:00 Est GFR (CKD-EPI)AfAm 98.93 07/02/19 08:00 Est GFR (CKD-EPI)NonAf 85.36 07/02/19 08:00 POC Glucometer 140 UNITS (80-120) 07/04/19 06:36 Random Glucose 184 mg/dL (74-106) H 07/02/19 08:00 Fasting Glucose 116 mg/dL (74-106) H 07/04/19 08:20 Calcium 8.5 mg/dL (8.5-10.1) 07/02/19 08:00 Total Bilirubin 0.3 mg/dL (0.2-1) 07/02/19 08:00 AST 13 U/L (15-37) L 07/02/19 08:00 ALT 21 U/L (13-61) 07/02/19 08:00 Alkaline Phosphatase 81 U/L (45-117) 07/02/19 08:00 Total Protein 7.8 g/dl (6.4-8.2) 07/02/19 08:00 Albumin 3.1 g/dl (3.4-5.0) L 07/02/19 08:00 POC Urine HCG, Qual Negative 07/01/19 16:37 RPR Titer Nonreactive (NONREACTIVE) 07/02/19 08:00 Labs noted. Assessment: 07/04/19 13:36 AOX3, in no acute respiratory distress. Full ROM, ambulating in the unit. Mild Withdrawal symptoms. For d/c tomorrow. Plan: continue detox. D/C in AM.
[2019-07-04] MEDS: QUEtiapine FUMARATE 50 MG TABLET PO SCH (22:33)
[2019-07-04] MEDS: THIAMINE HCL 100 MG TABLET (FP) PO SCH (22:34)
[2019-07-05] MEDS ORDERED: chlordiazePOXIDE HCL 10 MG CAPSULE PO ONE (05:00)
[2019-07-05] MEDS: metFORMIN HCL 500 MG TABLET (FP) PO SCH (07:19)
--- NOTE | 2019-07-05 09:12 | DS ---
[facility] Detox Discharge Summary Admission Date: 07/01/19 Discharge Date: 07/05/19 - History Present History: Alcohol Dependence Additional Comments: 53 years old female admitted on 07/01/19 for alcohol withdrawal sx management treated with librium detox regiment patient has completed the librium regiment and tolerated well alert oriented x 3 cardiac s1s2 regular rate rhythm respiratory clear lungs bilaterally on auscultation skin warm and dry - Physical Exam Results Vital Signs: Vital Signs Temperature 97 F L 07/05/19 06:37 Pulse Rate 84 07/05/19 06:37 Respiratory Rate 20 07/05/19 06:37 Blood Pressure 138/85 07/05/19 06:37 O2 Sat by Pulse Oximetry (%) Pertinent Admission Physical Exam Findings: alcohol withdrawal Laboratory Last Values WBC 7.5 K/mm3 (4.0-10.0) 07/02/19 08:00 RBC 4.42 M/mm3 (3.60-5.2) 07/02/19 08:00 Hgb 12.3 GM/dL (10.7-15.3) 07/02/19 08:00 Hct 37.5 % (32.4-45.2) 07/02/19 08:00 MCV 84.9 fl (80-96) 07/02/19 08:00 MCH 27.9 pg (25.7-33.7) 07/02/19 08:00 MCHC 32.8 g/dl (32.0-36.0) 07/02/19 08:00 RDW 16.8 % (11.6-15.6) H 07/02/19 08:00 Plt Count 369 K/MM3 (134-434) 07/02/19 08:00 MPV 7.9 fl (7.5-11.1) 07/02/19 08:00 Sodium 135 mmol/L (136-145) L 07/02/19 08:00 Potassium 3.9 mmol/L (3.5-5.1) 07/02/19 08:00 Chloride 102 mmol/L (98-107) 07/02/19 08:00 Carbon Dioxide 27 mmol/L (21-32) 07/02/19 08:00 Anion Gap 6 MMOL/L (8-16) L 07/02/19 08:00 BUN 8.8 mg/dL (7-18) 07/02/19 08:00 Creatinine 0.8 mg/dL (0.55-1.3) 07/02/19 08:00 Est GFR (CKD-EPI)AfAm 98.93 07/02/19 08:00 Est GFR (CKD-EPI)NonAf 85.36 07/02/19 08:00 POC Glucometer 107 UNITS (80-120) 07/05/19 05:42 Random Glucose 184 mg/dL (74-106) H 07/02/19 08:00 Fasting Glucose 116 mg/dL (74-106) H 07/04/19 08:20 Calcium 8.5 mg/dL (8.5-10.1) 07/02/19 08:00 Total Bilirubin 0.3 mg/dL (0.2-1) 07/02/19 08:00 AST 13 U/L (15-37) L 07/02/19 08:00 ALT 21 U/L (13-61) 07/02/19 08:00 Alkaline Phosphatase 81 U/L (45-117) 07/02/19 08:00 Total Protein 7.8 g/dl (6.4-8.2) 07/02/19 08:00 Albumin 3.1 g/dl (3.4-5.0) L 07/02/19 08:00 POC Urine HCG, Qual Negative 07/01/19 16:37 RPR Titer Nonreactive (NONREACTIVE) 07/02/19 08:00 lab noted long history of diabetes treated with metformin - Treatment Hospital Course: Detox Protocol Followed, Detoxed Safely, Responded well, Discharged Condition Good, Rehab Referral Accepted Patient has Accepted a [facility] Referral [facility] - Medication Discharge Medications: Ambulatory Orders Albuterol Sulfate Inhaler - [Ventolin HFA Inhaler -] 2 inh IH Q4H PRN #1 inhaler 03/18/19 Aspirin [ASA -] 81 mg PO DAILY 30 Days #30 tab.chew 03/18/19 Gabapentin [Neurontin -] 600 mg PO TID 30 Days #90 capsule 03/18/19 Metformin HCl [Glucophage] 1,000 mg PO BID 30 Days #60 tablet 03/18/19 traZODone HCL [Trazodone HCl] 50 mg PO HS #30 tablet 03/18/19 - Diagnosis (1) Alcohol dependence with uncomplicated withdrawal Current Visit: Yes Status: Acute (2) DM Diabetes mellitus type 2 Current Visit: Yes Status: Chronic (3) Essential hypertension Current Visit: Yes Status: Chronic (4) Human immunodeficiency virus infection Current Visit: Yes Status: Chronic (5) Nicotine dependence Current Visit: Yes Status: Acute - AMA Did Patient Leave Against Medical Advice: No CIWA Score - CIWA Score Nausea/Vomitin-No Nausea/No Vomiting Muscle Tremors: None Anxiety: 1-Mildly Anxious Agitation: 0-Normal Activity Paroxysmal Sweats: No Perspiration Orientation: 0-Oriented Tacttile Disturbances: 0-None Auditory Disturbances: 0-None Visual Disturbances: 0-None Headache: 0-None Present CIWA-Ar Total Score: 1
[2019-07-05] MEDS: ASPIRIN 81 MG CHEWABLE TABLETS PO SCH (10:06)
[2019-07-05] MEDS: NICOTINE 14 MG/24 HOURS TOPICAL PATCH TD SCH (10:06)
[2019-07-05] MEDS: PRENATAL VITAMINS W/ FOLIC ACID TABLET (FP) PO SCH (10:06)
[2019-07-05 11:09] VITALS: BP 134/86; PULSE 87; TEMP 96.4
== END 2019-07-05 16:07 | disposition home or self-care (01) | DRG 774 ==
LOC: YASAS 13:39 → Y3N 20:34
PROVIDERS: ADMIT Allergy & Immunology; ATTEND Allergy & Immunology
PROC: HZ2ZZZZ Detoxification Services for Substance Abuse Treatment (ICD-10-PCS; principal; 2019-07-01)
DX: F10.230 Alcohol dependence with withdrawal, uncomplicated (principal); F14.20 Cocaine dependence, uncomplicated; F12.20 Cannabis dependence, uncomplicated; F17.210 Nicotine dependence, cigarettes, uncomplicated; I10 Essential (primary) hypertension; E11.40 Type 2 diabetes mellitus with diabetic neuropathy, unspecified; Z21 Asymptomatic human immunodeficiency virus [HIV] infection status; R79.89 Other specified abnormal findings of blood chemistry; R00.0 Tachycardia, unspecified; E66.9 Obesity, unspecified; Z68.44 Body mass index [BMI] 60.0-69.9, adult; Z87.42 Personal history of other diseases of the female genital tract; Z79.84 Long term (current) use of oral hypoglycemic drugs; Z91.5 Personal history of self-harm
CPT/HCPCS: 36415; 71046-TC-FY; 80053; 81025; 82947; 82962; 85027; 86593; 93005; 93010

== ENCOUNTER 2020-03-14 13:20 | Inpatient (IN) | payer OTHER ==
--- NOTE | 2019-07-05 15:54 | HP ---
[facility] Rehab Assess/Revision - Admission History Admitted to Rehab from: [facility] - Findings Detox History & Physical reviewed: Yes Concur with findings: Yes Comments/Additional Findings: transferred from detox to rehab admission as per protocol Inpatient Rehab Admission - Rehab Decision to Admit Inpatient rehab admission?: Yes - Initial Determination Are CD services needed?: Yes Free of communicable disease: Yes Not in need of hospitalization: Yes - Rehab Admission Criteria Previous failed treatment: Yes Poor recovery environment: Yes Comorbidities: Yes Lacks judgement: Yes Patient is meeting Inpatient Rehab admission criteria:: Yes
[~2020-03-14 13:20] MED LIST: ACETAMINOPHEN 325 MG TABLET (FP) PO PRN; ALBUTEROL SO4 HFA INHALER IH PRN; ASPIRIN 81 MG CHEWABLE TABLETS PO SCH; IBUPROFEN 400 MG TABLET (FP) PO PRN; LOPERAMIDE HCL 2 MG CAPSULE PO PRN; MAG HYDROX/AL HYDROX/SIMETH 30 ML UNIT-DOSE CUP PO PRN; MAGNESIUM CITRATE 300 ML BOTTLE PO PRN; MAGNESIUM HYDROX 2400MG/30ML ORAL SUSPENSION 30 ML CUP PO PRN; MELATONIN 5 MG TABLETS PO PRN; MENTHOL/PHENOL 1 EACH UD MM PRN; NICOTINE 14 MG/24 HOURS TOPICAL PATCH TD SCH; NICOTINE POLACRILEX 2 MG GUM BC PRN; P-EPHED 60MG/TRIPROLIDI 2.5MG TABLET PO PRN; PATIENT'S OWN MEDICATION (NON-FORMULARY) (Metformin Hcl [Glucophage] 1,000 MG) PO SCH; PRENATAL VITAMINS W/ FOLIC ACID TABLET (FP) PO SCH; QUEtiapine FUMARATE 50 MG TABLET PO ONE; THIAMINE HCL 100 MG TABLET (FP) PO SCH; guaiFENesin 200 MG/10 ML 10 ML UNIT-DOSE CUPS PO PRN
--- OUTSIDE RECORDS SUMMARY | 2020-03-14 13:27 | XMS ---
:1965 Author Organization [facility] Support Name Relationship Address Phone UE Unavailable Unavailable Unavailable ANNY ANTONIO AUNT [address] [place] [address] Jono Thronton Unavailable Unavailable Unavailable MAXINE ANTONIO domestic partner [address] [place] [address] Re-disclosure Warning The records that you are about to access may contain information from federally- assisted alcohol or drug abuse programs. If such information is present, then the following federally mandated warning applies: This information has been disclosed to you from records protected by federal confidentiality rules (42 CFR part 2). The federal rules prohibit you from making any further disclosure of this information unless further disclosure is expressly permitted by the written consent of the person to whom it pertains or as otherwise permitted by 42 CFR part 2. A general authorization for the release of medical or other information is NOT sufficient for this purpose. The Federal rules restrict any use of the information to criminally investigate or prosecute any alcohol or drug abuse patient.The records that you are about to access may contain highly sensitive health information, the redisclosure of which is protected by Article 27-F of the [facility] Public Health law. If you continue you may haveaccess to information: Regarding HIV / AIDS; Provided by facilities licensed or operated by the [facility] Office of Mental Health; or Provided by the [facility] Office for People With Developmental Disabilities. If such information is present, then the following [facility] mandated warning applies: This information has been disclosed to you from confidential records which are protected by state law. State law prohibits you from making any further disclosure of this information without the specific written consent of the person to whom it pertains, or as otherwise permitted by law. Any unauthorized further disclosure in violation of state law may result in a fine or penitentiary sentence or both. A general authorization for the release of medical or other information is NOT sufficient authorization for further disclosure. Encounters Encounter Providers Location Date Indications Data Source(s ) (CM-CPD) Case [facility] 03/18/2019 eCW3 ([facility] 12:00:00 AM [facility] EDT - Care) 03/18/2019 12:00:00 AM EDT (CM-F/U) Case [facility] 03/17/2019 eCW3 ([facility] Follow up Care [facility] A28 12:00:00 AM [facility] EDT - Care) 03/17/2019 12:00:00 AM EDT (CM-F/U) Case [facility] 03/12/2019 eCW3 ([facility] A28 12:00:00 AM [facility] EDT - Care) 03/12/2019 12:00:00 AM EDT (CM-F/U) Case [facility] 03/03/2019 eCW3 ([facility]28 12:00:00 AM [facility] EDT - Care) 03/03/2019 12:00:00 AM EDT (CM-CPD) Case [facility] 02/19/2019 eCW3 ([facility] A28 12:00:00 AM [facility] EDT - Care) 02/19/2019 12:00:00 AM EDT (CM-F/U) Case [facility] 02/19/2019 eCW3 ([facility] Follow up [facility] A28 12:00:00 AM [facility] EDT - Care) 02/19/2019 12:00:00 AM EDT Outpatient [facility] 02/19/2019 eCW3 ([facility] on Care Clinic A28 12:00:[address] [facility] EDT - Care) 02/19/2019 12:00:00 AM EDT Immunizations Vaccine Date Status Description Data Source(s) New in 2011. IIV4 02/19/2019 11:40:00 completed eC W3 ([facility]) New in 2011. IIV4 02/19/2019 11:40:00 completed eC W3 ([facility]) New in 2011. IIV4 02/19/2019 11:40:00 completed eC W3 ([facility]) New in 2011. IIV4 02/19/2019 11:40:00 completed eC W3 ([facility]) New in 2011. IIV4 02/19/2019 11:40:00 completed eC W3 ([facility]) Medications Medication Brand Start Product Dose Route Administrative Pharmacy josh Indications Reaction Description Data Name Date Form Instructions Instructions Source(s) Hydrocortis UNK .0 active Hydrocort iso eCW3 one Acetate 2020 {appl ne Acetate 1 ([facility] % 12:00: icati % [facility] 00 AM on} Health EDT Care) Hydrocortis Hydroc .0 active Hydroco rtiso eCW3 one 10 ortiso 2019 {appl ne Acetate 1 ([facility] MG/ML ne 12:00: icati % [facility] Topical Acetat 00 AM on} Health Cream e 1 % EDT Care) Hydrocortis one Acetate 1 % Hydrocortis UNK .0 active Hydrocort iso eCW3 one Acetate 2020 {appl ne Acetate 1 ([facility] 1 % 12:00: icati % [facility] 00 AM on} Health EDT Care) Hydrocortis Hydroc .0 active Hydroco rtiso eCW3 one 10 ortiso 2019 {appl ne Acetate 1 ([facility] MG/ML ne 12:00: icati % [facility] Topical Acetat 00 AM on} Health Cream e 1 % EDT Care) Hydrocortis one Acetate 1 % Hydrocortis UNK .0 active Hydrocort iso eCW3 one Acetate 2020 {appl ne Acetate 1 ([facility] 1 % 12:00: icati % [facility] 00 AM on} Health EDT Care) Hydrocortis UNK .0 active Hydrocort iso eCW3 one Acetate 2020 {appl ne Acetate 1 ([facility] 1 % 12:00: icati % [facility] 00 AM on} Health EDT Care) Hydrocortis UNK .0 active Hydrocort iso eCW3 one Acetate 2020 {appl ne Acetate 1 ([facility] 1 % 12:00: icati % [facility] 00 AM on} Health EDT Care) Hydrocortis UNK .0 active Hydrocort iso eCW3 one Acetate 2020 {appl ne Acetate 1 ([facility] 1 % 12:00: icati % [facility] 00 AM on} Health EDT Care) Hydrocortis UNK .0 active Hydrocort iso eCW3 one Acetate 2020 {appl ne Acetate 1 ([facility] 1 % 12:00: icati % [facility] 00 AM on} Health EDT Care) Hydrocortis UNK .0 active Hydrocort iso eCW3 one Acetate 2020 {appl ne Acetate 1 ([facility] 1 % 12:00: icati % [facility] 00 AM on} Health EDT Care) Hydrocortis UNK .0 active Hydrocort iso eCW3 one Acetate 2020 {appl ne Acetate 1 ([facility] 1 % 12:00: icati % [facility] 00 AM on} Health EDT Care) Biktarvy Biktar .0 active Biktarvy e CW3 50-200-25 vy 2020 {tabl 50-200-25 MG ( [facility] 50-200 12:00: et} [facility] -25 MG 00 AM Health EDT Care) Biktarvy Biktar .0 active Biktarvy e CW3 50-200-25 vy 2020 {tabl 50-200-25 MG ( [facility] 50-200 12:00: et} [facility] -25 MG 00 AM Health EDT Care) Biktarvy Biktar .0 active Biktarvy e CW3 50-200-25 vy 2020 {tabl 50-200-25 MG ( [facility] 50-200 12:00: et} [facility] -25 MG 00 AM Health EDT Care) Biktarvy Biktar .0 active Biktarvy e CW3 50-200-25 vy 2020 {tabl 50-200-25 MG ( [facility] 50-200 12:00: et} [facility] -25 MG 00 AM Health EDT Care) Biktarvy Biktar .0 active Biktarvy e CW3 50-200-25 vy 2020 {tabl 50-200-25 MG ( [facility] 50-200 12:00: et} [facility] -25 MG 00 AM Health EDT Care) Biktarvy Biktar .0 active Biktarvy e CW3 50-200-25 vy 2020 {tabl 50-200-25 MG ( [facility] 50-200 12:00: et} [facility] -25 MG 00 AM Health EDT Care) Biktarvy Biktar .0 active Biktarvy e CW3 50-200-25 vy 2020 {tabl 50-200-25 MG ( [facility] 50-200 12:00: et} [facility] -25 MG 00 AM Health EDT Care) Biktarvy Biktar .0 active Biktarvy e CW3 50-200-25 vy 2020 {tabl 50-200-25 MG ( [facility] 50-200 12:00: et} [facility] -25 MG 00 AM Health EDT Care) Biktarvy Biktar .0 active Biktarvy e CW3 50-200-25 vy 2020 {tabl 50-200-25 MG ( [facility] 50-200 12:00: et} [facility] -25 MG 00 AM Health EDT Care) Biktarvy Biktar .0 active Biktarvy e CW3 50-200-25 vy 2020 {tabl 50-200-25 MG ( [facility] 50-200 12:00: et} [facility] -25 MG 00 AM Health EDT Care) Biktarvy Biktar .0 active Biktarvy e CW3 50-200-25 vy 2020 {tabl 50-200-25 MG ( [facility] 50-200 12:00: et} [facility] -25 MG 00 AM Health EDT Care) Nicotine 4 Nicore 06/15/ active Nicorett e 4 eCW3 MG Chewing tte 4 2020 MG ([facility] Gum MG 12:00: [facility] [[facility]] 00 AM Health [place] 4 EST Care) MG Nicotine 4 Nicore 06/15/ active Nicorett e 4 eCW3 MG Chewing tte 4 2020 MG ([facility] Gum MG 12:00: [facility] [[place]] 00 AM Health [place] 4 EST Care) MG Nicotine 4 Nicore 06/15/ active Nicorett e 4 eCW3 MG Chewing tte 4 2020 MG ([facility] Gum MG 12:00: [facility] [[place]] 00 AM Health [place] 4 EST Care) MG Nicotine 4 Nicore 06/15/ active Nicorett e 4 eCW3 MG Chewing tte 4 2020 MG ([facility] Gum MG 12:00: [facility] [[place]] 00 AM Health [place] 4 EST Care) MG Nicotine 4 Nicore 06/15/ active Nicorett e 4 eCW3 MG Chewing tte 4 2020 MG ([facility] Gum MG 12:00: [facility] [[place]] 00 AM Health [place] 4 EST Care) MG Nicotine 4 Nicore 06/15/ active Nicorett e 4 eCW3 MG Chewing tte 4 2020 MG ([facility] Gum MG 12:00: [facility] [[place]] 00 AM Health [place] 4 EST Care) MG Nicotine 4 Nicore 06/15/ active Nicorett e 4 eCW3 MG Chewing tte 4 2020 MG ([facility] Gum MG 12:00: [facility] [[place]] 00 AM Health [place] 4 EST Care) MG Nicotine 4 Nicore 06/15/ active Nicorett e 4 eCW3 MG Chewing tte 4 2020 MG ([facility] Gum MG 12:00: [facility] [[place]] 00 AM Health [place] 4 EST Care) MG Nicotine 4 Nicore 06/15/ active Nicorett e 4 eCW3 MG Chewing tte 4 2020 MG ([facility] Gum MG 12:00: [facility] [[place]] 00 AM Health [place] 4 EST Care) MG Nicotine 4 Nicore 06/15/ active Nicorett e 4 eCW3 MG Chewing tte 4 2020 MG ([facility] Gum MG 12:00: [facility] [[place]] 00 AM Health [place] 4 EST Care) MG Nicotine 4 Nicore 06/15/ active Nicorett e 4 eCW3 MG Chewing tte 4 2020 MG ([facility] Gum MG 12:00: [facility] [[place]] 00 AM Health [place] EST Care) MG valacyclovi Valacy 02/19/ 1.0 active Valacyc lovir eCW3 r 500 MG clovir 2019 {tabl HCl 500 MG ([facility] Oral Tablet HCl 12:00: et} [facility] Valacyclovi 500 MG 00 AM Healt h r HCl 500 EDT Care) MG valacyclovi Valacy .0 active Valacyc lovir eCW3 r 500 MG clovir 2019 {tabl HCl 500 MG ([facility] Oral Tablet HCl 12:00: et} [facility] Valacyclovi 500 MG 00 AM Healt h r HCl 500 EDT Care) MG valacyclovi Valacy .0 active Valacyc lovir eCW3 r 500 MG clovir 2019 {tabl HCl 500 MG ([facility] Oral Tablet HCl 12:00: et} [facility] Valacyclovi 500 MG 00 AM Healt h r HCl 500 EDT Care) MG valacyclovi Valacy .0 active Valacyc lovir eCW3 r 500 MG clovir 2019 {tabl HCl 500 MG ([facility] Oral Tablet HCl 12:00: et} [facility] Valacyclovi 500 MG 00 AM Healt h r HCl 500 EDT Care) MG valacyclovi Valacy .0 active Valacyc lovir eCW3 r 500 MG clovir 2019 {tabl HCl 500 MG ([facility] Oral Tablet HCl 12:00: et} [facility] Valacyclovi 500 MG 00 AM Healt h r HCl 500 EDT Care) MG valacyclovi Valacy .0 active Valacyc lovir eCW3 r 500 MG clovir 2019 {tabl HCl 500 MG ([facility] Oral Tablet HCl 12:00: et} [facility] Valacyclovi 500 MG 00 AM Healt h r HCl 500 EDT Care) MG valacyclovi Valacy .0 active Valacyc lovir eCW3 r 500 MG clovir 2019 {tabl HCl 500 MG ([facility] Oral Tablet HCl 12:00: et} [facility] Valacyclovi 500 MG 00 AM Healt h r HCl 500 EDT Care) MG valacyclovi Valacy .0 active Valacyc lovir eCW3 r 500 MG clovir 2019 {tabl HCl 500 MG ([facility] Oral Tablet HCl 12:00: et} [facility] Valacyclovi 500 MG 00 AM Healt h r HCl 500 EDT Care) MG valacyclovi Valacy .0 active Valacyc lovir eCW3 r 500 MG clovir 2019 {tabl HCl 500 MG ([facility] Oral Tablet HCl 12:00: et} [facility] Valacyclovi 500 MG 00 AM Healt h r HCl 500 EDT Care) MG valacyclovi Valacy .0 active Valacyc lovir eCW3 r 500 MG clovir 2019 {tabl HCl 500 MG ([facility] Oral Tablet HCl 12:00: et} [facility] Valacyclovi 500 MG 00 AM Healt h r HCl 500 EDT Care) MG valacyclovi Valacy .0 active Valacyc lovir eCW3 r 500 MG clovir 2019 {tabl HCl 500 MG ([facility] Oral Tablet HCl 12:00: et} [facility] Valacyclovi 500 MG 00 AM Healt h r HCl 500 EDT Care) MG Insurance Providers Payer name Policy type Policy ID Covered Covered green party's Policy P roman / Coverage green party ID relationship to [place] [employer]ation type [place] [employer] [id number] SP [id number] [employer] [id number] SP [id number] [employer] [id number] SP [id number] [employer] SELF PAY 00 Self 00 MEDICAID INP [id number] Self [id number] D REHAB [facility] AM[facility] [id number] Self [id number] CARE [facility] AMIDA [id number] Self [id number] CARE SELF PAY 00 Self 00 MEDICAID INP [id number] Self [id number] D PSYCH [facility] [id number] SP [id number] [employer] Problems, Conditions, and Diagnoses Code Display Name Description Problem Effective Data Type Dates Source(s) Z68.44 BMI 60.0-69.9, adult BMI 60.0-69.9, adult Problem 09/03 eCW3 ([facility] 12:00:00 AM [facility] EDT Care) F20.89 Schizophrenia Other schizophrenia Problem 08/17/2019 eC W3 ([facility] 12:00:00 AM [facility] EDT Care) F20.89 Schizophrenia Other schizophrenia Problem 08/17/2019 eC W3 ([facility] 12:00:00 AM [facility] EDT Care) G89.29 Other chronic pain Other chronic pain Problem 0 eCW3 ([facility] 12:00:00 AM [facility] EST Care) B20 Human Human Problem 02/20/2019 eCW3 ([facility] immunodeficiency immunodeficiency 12:00:00 AM [facility] virus infection virus [HIV] disease EDT Care) B20 Human Human Problem 02/20/2019 eCW3 ([facility] immunodeficiency immunodeficiency 12:00:00 AM [facility] virus infection virus (HIV) disease EDT Care) M77.31 Calcaneal spur, right Calcaneal spur, Problem 9 eCW3 ([facility] foot right foot 12:00:00 AM [facility] EDT Care) M77.32 Calcaneal spur of Calcaneal spur of Problem 02/19/2019 eCW3 ([facility] left foot left foot 12:00:00 AM [facility] EDT Care) M76.62 Achilles tendinitis Achilles tendinitis Problem 019 eCW3 ([facility] of left lower of left lower 12:00:00 AM [facility] extremity extremity EDT Care) M72.2 Plantar fascial 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/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 12:00 :00 AM [facility] feet EDT Care) M76.61 Achilles tendinitis, Achilles tendinitis, Problem 02/19 eCW3 ([facility] right leg right leg 12:00:00 AM [facility] EDT Care) M76.61 Achilles tendinitis, Achilles tendinitis, Problem 02/19 eCW3 ([facility] right leg right leg 12:00:00 AM [facility] EDT Care) M77.31 Calcaneal spur, right Calcaneal spur, Problem 9 eCW3 ([facility] foot right foot 12:00:00 AM [facility] EDT Care) M77.32 Calcaneal spur of Calcaneal spur of Problem 02/19/2019 eCW3 ([facility] left foot left foot 12:00:00 AM [facility] EDT Care) M76.62 Achilles tendinitis Achilles tendinitis Problem 019 eCW3 ([facility] of left lower of left lower 12:00:00 AM [facility] extremity extremity EDT Care) M72.2 Plantar fascial 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/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 12:00 :00 AM [facility] feet EDT Care) Social History Code Duration Value Status Description Data Source(s ) Smoking 01/20/2020 Current Smoker completed Current Smoker eCW3 ( [facility] 12:00:00 AM EDT Health Ca re) Smoking 01/20/2020 Current Smoker completed Current Smoker eCW3 ( [facility] 12:00:00 AM EDT Health Ca re) Smoking 01/20/2020 Current Smoker completed Current Smoker eCW3 ( [facility] 12:00:00 AM EDT Health Ca re) Smoking 01/20/2020 Current Smoker completed Current Smoker eCW3 ( [facility] 12:00:00 AM EDT Health Ca re) Smoking 11/12/2019 Current Smoker completed Current Smoker eCW3 ( [facility] 12:00:00 AM EDT Health Ca re) Smoking 11/12/2019 Current Smoker completed Current Smoker eCW3 ( [facility] 12:00:00 AM EDT Health Ca re) Smoking 11/12/2019 Current Smoker completed Current Smoker eCW3 ( [facility] 12:00:00 AM EDT Health Ca re) Smoking 11/12/2019 Current Smoker completed Current Smoker eCW3 ( [facility] 12:00:00 AM EDT Health Ca re) Smoking 11/12/2019 Current Smoker completed Current Smoker eCW3 ( [facility] 12:00:00 AM EDT Health Ca re) Smoking 09/24/2019 Current Smoker completed Current Smoker eCW3 ( [facility] 12:00:00 AM EDT Health Ca re) Smoking 09/04/2019 Current Smoker completed Current Smoker eCW3 ( [facility] 12:00:00 AM EDT Health Ca re) Vital Signs ID Date Data Source UNK Name Value Range Interpretation Code Description Data Source(s) Diastolic blood 89 mm[Hg] 89 mm[Hg] eCW3 ([facility]) Systolic blood 122 mm[Hg] 122 mm[Hg] eCW3 ([facility]) Body temperature 98.4 [degF] 98.4 [degF] eCW3 ( [facility]) Heart rate 18 /min 18 /min eCW3 ([facility]) Body mass index 60.93 kg/m2 60.93 kg/m2 eCW3 ([facility] (BMI) [Ratio] [facility]) Body weight 344 [lb_av] 344 [lb_av] eCW3 ([facility]) Body height [in_i] eCW3 ([facility]) Patient Treatment Plan of Care Planned Activity Planned Date Details Description Data Source (s) Hydrocortisone Acetate 1 % 09/04/2019 12:00:00 eCW3 ([facility]) Biktarvy 50-200-25 MG 08/14/2019 12:00:00 eCW3 ([facility]) Biktarvy 50-200-25 MG 08/14/2019 12:00:00 eCW3 ([facility]) Biktarvy 50-200-25 MG 08/14/2019 12:00:00 eCW3 ([facility]) Biktarvy 50-200-25 MG 08/14/2019 12:00:00 eCW3 ([facility]) Nicotine 4 MG Chewing Gum 06/15/2019 12:00:00 eCW3 [facility]) Nicotine 4 MG Chewing Gum 06/15/2019 12:00:00 eCW3 ([facility] [[facility]] [facility]) Nicotine 4 MG Chewing Gum 06/15/2019 12:00:00 eCW3 ([facility]) Nicotine 4 MG Chewing Gum 06/15/2019 12:00:00 [facility]CW[facility] valacyclovir 500 MG Oral 02/19/2019 12:00:00 eCW3 [facility] valacyclovir 500 MG Oral 02/19/2019 12:00:00 eCW3 ([facility] valacyclovir 500 MG Oral 02/19/2019 12:00:00 eCW3 ([facility]) valacyclovir 500 MG Oral 02/19/2019 12:00:00 eCW3 ([facility])
--- NOTE | 2020-03-14 13:34 | BHS.RME ---
Substance Use & Tx History - Substance Use History Barbiturate Substance amount: 5 six packs beer Frequency of use: Daily Substance route: Oral Date of Last Use: 03/14/20 (started age 17, 1 AM today) Cocaine-Crack Substance amount: $800-900 Frequency of use: Daily Substance route: Smoking Date of Last Use: 03/14/20 (started age 23) Nicotine Substance amount: 10-20 ciggs Frequency of use: Daily Substance route: Smoking Date of Last Use: 03/14/20 (started age 17) Synthetic Cannabinoid Substance amount: K-2 $50 Frequency of use: Daily Substance route: Smoking Date of Last Use: 03/14/20 (started 1 month ago) - Last Treatment Date of last treatment: 07/01-07/05/19 completed detox Treatment type: Substance Use Disorder ([facility]UNG) Where was last treatment: Detox Physical/Psych/Mental Status - Behavior General Behavior: Increased activity (restlessness, agitation) Eye Contact: Normal - Cooperativeness Cooperativeness: Cooperative - Thinking Thought Processes: Tight, Logical, Goal Directed - Physical Health Problems Is patient presently having any pain?: No Does patient presently have any injuries (include location): No Does patient currently have a fever: No Is patient : No CIWA Nausea/Vomitin-Mild Nausea/No Vomiting Muscle Tremors: 3 Anxiety: 5 Agitation: 3 Paroxysmal Sweats: 4-Forehead w/Sweat Beads Orientation: 0-Oriented Tacttile Disturbances: 0-None Auditory Disturbances: 0-None Visual Disturbances: 0-None Headache: 1-Very Mild CIWA-Ar Total Score: 17
[2020-03-14 15:52] VITALS: BMI 60.4
--- NOTE | 2020-03-14 16:36 | HP ---
CIWA Score Nausea/Vomitin-Mild Nausea/No Vomiting Muscle Tremors: 3 Anxiety: 4-Mod. Anxious/Guarded Agitation: 4-Moderately Restless Paroxysmal Sweats: 4-Forehead w/Sweat Beads Orientation: 0-Oriented Tacttile Disturbances: 0-None Auditory Disturbances: 0-None Visual Disturbances: 0-None Headache: 1-Very Mild CIWA-Ar Total Score: 17 - Admission Criteria OASAS Guidelines: Admission for Medically Managed Detox: Requires at least one of the followin. CIWA greater than 12 2. Seizures within the past 24 hours 3. Delirium tremens within the past 24 hours 4. Hallucinations within the past 24 hours 5. Acute intervention needed for co occurring medical disorder 6. Acute intervention needed for co occurring psychiatric disorder 7. Severe withdrawal that cannot be handled at a lower level of care (continued vomiting, continued diarrhea, abnormal vital signs) requiring intravenous medication and/or fluids 8. Patient presents the following: CIWA greater than 12 Admission Criteria Met: Admission criteria met Admitting History and Physical - Admission Chief Complaint: 54 yo F presenting for detox from alcohol; "need to stop the alcohol, cigarettes, crack cocaine, and K2." History of Present Illness: 54 yo F presenting for detox from alcohol; "need to stop the alcohol, cigarettes, crack cocaine, and K2." Pt was last here 07/01-07/05/19 completed detox. Pt reports she would like to do rehab after detox this time. Pt reports being sober for several months and relapsing in November 2019. Pt reports she has had no periods of sobriety since she relapses in November. No recent blackouts/seizures. Pt reports feeling withdrawal symptoms ("shakes," nausea, and anxious). Pt was in [place] 8 weeks ago, visiting her brother. Pt reports going to the [facility] ED on 03/10 for coughing/wheezing/chest tightness (no fever) after pt no longer had nebulizer treatments at home. Pt was given duonebs, prednisone, azithromycin, and ceftriaxone. She was discharged with albuterol nebulizer solution, prednisone (4 days course, completed today), azithromycin (pt reports finishing the course of antibiotics she was given). PMH - HIV + (per pt, last CD4 1294, viral load undetectable; biktarvy); peripheral neuropathy (in b/l feet; gabapentin); T2DM (metformin); HTN (lisinopril); obesity PSH - hernia repair (2014); tubal ligation (2002) Psych - schizophrenia (trazadone, seroquel; last taken 2-3 weeks ago) Soc/Domiciled - homeless - "in between shelters" Legal - none - Substance Use History Alcohol Substance amount: 5 six packs beer Frequency of use: Daily Substance route: Oral Date of Last Use: 03/14/20 (started age 17, 1 AM today) Cocaine-Crack Substance amount: $800-900 Frequency of use: Daily Substance route: Smoking Date of Last Use: 03/14/20 (started age 23) Nicotine Substance amount: 10-20 ciggs Frequency of use: Daily Substance route: Smoking Date of Last Use: 03/14/20 (started age 17) Synthetic Cannabinoid Substance amount: K-2 $50 Frequency of use: Daily Substance route: Smoking Date of Last Use: 03/14/20 (started 1 month ago) - Last Treatment Date of last treatment: 07/01-07/05/19 completed detox Treatment type: Substance Use Disorder (HUNG) Where was last treatment: Detox - Past Medical History SEWER TAPPER: Yes: Peripheral Neuropathy Cardiovascular: Yes: HTN Pulmonary: Yes: Asthma ...LMP: 08/18/12 Infectious Disease: Yes: HIV Psych: Yes: Schizophrenia Endocrine: Yes: Diabetes Mellitus - Past Surgical History Past Surgical History: Yes: Hernia Repair (2014.), Tubal Ligation (2002) - Smoking History Smoking history: Current every day smoker Have you smoked in the past 12 months: Yes Aproximately how many cigarettes per day: 20 - Alcohol/Substance Use Hx Alcohol Use: Yes Number of Drinks Daily: 36 (Beers, Vodka, Wine.) History of Substance Use: reports: Cocaine Date of Last Use: 03/15/19 - Social History ADL: Independent Occupation: None Currently. History of Recent Travel: No Admission ROS [facility] - HPI Allergies/Adverse Reactions: Allergies Allergy/AdvReac Type Severity Reaction Status Date / Time No Known Allergies Allergy Verified 07/01/19 19:11 - Ebola screening Have you traveled outside of the country in the last 21 days: No Have you been sick,other than usual withdrawal symptoms: Yes (coughing and wheezing; refer to HPI) Do you have a fever: No - Review of Systems Constitutional: Diaphoresis EENT: reports: Blurred Vision (far-sighted with glasses), Nose Congestion (moderate congestion x 7 days) Respiratory: reports: Cough (sometimes productive of phlegm (small amounts, mostly white but sometimes yellow tinged)), Shortness of Breath (intermittent with activity), Wheezing Cardiac: reports: Chest Tightness (intermittent (2/2 to wheezing)) GI: reports: Nausea : reports: No Symptoms Reported Musculoskeletal: reports: No Symptoms Reported Integumentary: reports: No Symptoms Reported, Rash (L inner thigh (pt reports scraping against her tight pants with walking 35 blocks.); mild skin breakdown) Neuro: reports: Headache (very mild), Tremors (mild tremor) Endocrine: reports: No Symptoms Reported Hematology: reports: No Symptoms Reported Psychiatric: reports: Orientated x3, Agitated, Anxious (mildly anxious), Depressed (mildly (no SI/HI); no previous SIs) Patient History - Patient Medical History Hx Anemia: No Hx Asthma: Yes (Albuterol) Hx Chronic Obstructive Pulmonary Disease (COPD): No Hx Cancer: No Hx Cardiac Disorders: No Hx Congestive Heart Failure: No Hx Hypertension: Yes Hx Hypercholesterolemia: No Hx Pacemaker: No HX Cerebrovascular Accident: No Hx Seizures: No Hx Dementia: No Hx Diabetes: Yes (Metformin) Hx Gastrointestinal Disorders: No Hx Liver Disease: No Hx Genitourinary Disorders: No Hx Sexually Transmitted Disorders: No Hx Renal Disease (ESRD): No Hx Thyroid Disease: No Hx Human Immunodeficiency Virus (HIV): Yes (Not on medication at this time) Hx Hepatitis C: No (Last Tested within last 3 months: NEGATIVE.) Hx Depression: No Hx Suicide Attempt: Yes (Attempt in 2014. Denies suicidal ideation at this time) Hx Bipolar Disorder: No Hx Schizophrenia: Yes - Patient Surgical History Past Surgical History: Yes Hx Neurologic Surgery: No Hx Cataract Extraction: No Hx Cardiac Surgery: No Hx Lung Surgery: No Hx Breast Surgery: No Hx Breast Biopsy: No Hx Abdominal Surgery: Yes (umbilical hernia repair in 2013) Hx Appendectomy: No Hx Cholecystectomy: No Hx Genitourinary Surgery: No Hx Section: No Hx Orthopedic Surgery: No Other Surgical History: tubal ligation 2002 Anesthesia Reaction: No - Reproductive History Last Menstrual Period: 08/18/12 - Smoking Cessation Smoking history: Current every day smoker Have you smoked in the past 12 months: Yes Aproximately how many cigarettes per day: 10 Cigars Per Day: 1 Hx Chewing Tobacco Use: No Initiated information on smoking cessation: Yes 'Breaking Loose' booklet given: 03/14/20 Admission Physical Exam S - Vital Signs Vital Signs: Vital Signs - 24 hr 03/14/20 15:51 Temperature 97.3 F L Pulse Rate 80 Respiratory 16 Rate Blood Pressure 159/92 - Physical General Appearance: Yes: No Apparent Distress, Nourished, Appropriately Dressed, Obese, Sweating, Anxious, Other (moderately restless) HEENTM: Yes: EOMI, Hearing grossly Normal, Normocephalic, Normal Voice, Nasal Congestion Respiratory: Yes: No Respiratory Distress, No Accessory Muscle Use, Rhonchi (sca ttered), Wheezing (mild wheezing throughout) Neck: Yes: Supple, Trachea in good position Breast: Yes: Breast Exam Deferred Cardiology: Yes: Regular Rhythm, Regular Rate Abdominal: Yes: Normal Bowel Sounds, Non Tender, Flat, Soft Genitourinary: Yes: Other (deferred) Back: Yes: Normal Inspection Musculoskeletal: Yes: full range of Motion, Gait Steady Extremities: Yes: Normal Inspection, Normal Range of Motion, Non-Tender, Tremors (mild tremor), Other (b/l heels very calloused) Neurological: Yes: Fully Oriented, Alert, Motor Strength 5/5 Integumentary: Yes: Normal Color, Dry, Warm, Rash (L inner thigh - with mild skin breakdown) - Diagnostic (1) Alcohol dependence with uncomplicated withdrawal Current Visit: No Status: Acute (2) Foot ulcer Current Visit: No Status: Chronic Qualifiers: Laterality: left Non-pressure ulcer stage: limited to breakdown of skin Qualified Code(s): L97.521 - Non-pressure chronic ulcer of other part of left foot limited to breakdown of skin (3) Nicotine dependence Current Visit: No Status: Acute (4) Asthma Current Visit: No Status: Chronic (5) Cannabis dependence Current Visit: No Status: Chronic (6) DM Diabetes mellitus type 2 Current Visit: No Status: Chronic (7) Essential hypertension Current Visit: No Status: Chronic (8) History of schizophrenia Current Visit: No Status: Chronic (9) Human immunodeficiency virus infection Current Visit: No Status: Chronic (10) Peripheral neuropathy Current Visit: No Status: Chronic Qualifiers: Peripheral neuropathy type: polyneuropathy, unspecified Qualified Code(s): G62.9 - Polyneuropathy, unspecified Cleared for Admission [facility] - Detox or Rehab S Level of Care: Medically Managed Detox Regimen/Protocol: Librium Breathalyzer - Breathalyzer Breathalyzer: 0 Urine Drug Screen - Test Device Lot number: [id number] Expiration date: 09/08/21 - Control Is test valid?: Yes - Results Drug screen NEGATIVE: No Urine drug screen results: JENNIFER-Cocaine Inpatient Rehab Admission - Rehab Decision to Admit Inpatient rehab admission?: No
[2020-03-14] MEDS ORDERED: IBUPROFEN 400 MG TABLET (FP) PO PRN (16:59)
[2020-03-14] MEDS ORDERED: BISMUTH SUBSALICYLATE 524 MG/30 ML UD PO PRN (16:59)
[2020-03-14] MEDS ORDERED: MAGNESIUM CITRATE 300 ML BOTTLE PO PRN (16:59)
[2020-03-14] MEDS ORDERED: chlordiazePOXIDE HCL 25 MG CAPSULE PO PRN (16:59)
[2020-03-14] MEDS ORDERED: MAG HYDROX/AL HYDROX/SIMETH 30 ML UNIT-DOSE CUP PO PRN (16:59)
[2020-03-14] MEDS ORDERED: ACETAMINOPHEN 325 MG TABLET (FP) PO PRN (16:59)
[2020-03-14] MEDS ORDERED: NICOTINE POLACRILEX 2 MG GUM BUC PRN (16:59)
[2020-03-14] MEDS ORDERED: ONDANSETRON *ODT* 4 MG TABLET SL PRN (16:59)
[2020-03-14] MEDS ORDERED: MAGNESIUM HYDROX 2400MG/30ML ORAL SUSPENSION 30 ML CUP PO PRN (16:59)
[2020-03-14] MEDS ORDERED: METHOCARBAMOL 500 MG TABLET PO PRN (16:59)
--- OUTSIDE RECORDS SUMMARY | 2020-03-14 17:36 | XMS ---
:1965 Author Organization [facility] Support Name Relationship Address Phone UE Unavailable Unavailable Unavailable ANNY ANTONIO AUNT [address] [place] [address] Jono Thornton Unavailable Unavailable Unavailable MAXINE ANTONIO domestic partner [address] [place] [place] [address] Re-disclosure Warning The records that you are [...] is protected by Article 27-F of the [facility] Public Health law. If you continue you may haveaccess to information: Regarding HIV / AIDS; Provided by facilities licensed or operated by the [facility] Office of Mental Health; or Provided by the [facility] Office for People With Developmental Disabilities. If such information is present, then the following [facility] mandated warning applies: This information has been [...] law may result in a fine or prison sentence or both. A general authorization for the release of medical or other information is NOT sufficient authorization for further disclosure. Encounters Encounter Providers Location Date Indications Data Source(s ) (CM-CPD) Case [facility] 03/18/2019 eCW3 ([facility] Care Plan [facility] A28 12:00:00 AM [facility] EDT - Care) 03/18/2019 12:00:00 AM EDT (CM-F/U) Case [facility] 03/17/2019 eCW3 ([facility] Management Follow up Care Clinic A28 12:00:00 AM [facility] EDT - Care) 03/17/2019 12:00:00 AM EDT (CM-F/U) Case [facility] 03/12/2019 eCW3 ([facility] Management Follow up Care [facility] A28 12:00:00 AM [facility] EDT - Care) 03/12/2019 12:00:00 AM EDT (CM-F/U) Case [facility] 03/03/2019 eCW3 ([facility] Management Follow up Care [facility] A28 12:00:00 AM [facility] EDT - Care) 03/03/2019 12:00:00 AM EDT (CM-CPD) Case [facility] 02/19/2019 eCW3 ([facility] Care Plan Care [facility] A28 12:00:00 AM [facility] EDT - Care) 02/19/2019 12:00:00 AM EDT (CM-F/U) Case [facility] 02/19/2019 eCW3 ([facility] Management Follow up Care Clinic A28 12:00:00 AM [facility] EDT - Care) 02/19/2019 12:00:00 AM EDT Outpatient [facility] 02/19/2019 eCW3 ([facility] on Care Clinic A28 12:00:[address] [facility] EDT - Care) 02/19/2019 12:00:00 AM EDT Immunizations Vaccine Date Status Description Data Source(s) New in 2011. IIV4 02/19/2019 11:40:00 completed eC W3 ([facility]) New in 2011. IIV4 02/19/2019 11:40:00 completed eC W3 ([facility]) New in 2011. IIV4 02/19/2019 11:40:00 completed eC W3 ([facility]) New in 2011. IIV4 02/19/2019 11:40:00 completed [...] name Policy type Policy ID Covered Covered republican's Policy P roman / Coverage republican ID relationship to [place] [facility] ormation type [place] [facility] [id number] SP [id number] [employer] [facility] [id number] SP [id number] [employer] [id number] SP [id number] [employer] SELF PAY 00 Self 00 MEDICAID INP [id number] Self [id number] D REHAB [facility] [id number] Self [id number] CARE [facility] [id number] Self [id number] CARE SELF PAY 00 Self 00 MEDICAID INP [id number] Self [id number] D PSYCH BH-[facility]ON [id number] SP [id number] [employer] Problems, Conditions, and Diagnoses Code Display Name Description Problem Effective Data Type Dates Source(s) Z68.44 BMI 60.0-69.9, adult BMI 60.0-69.9, adult Problem 09/03 eCW3 ([facility] 12:00:00 AM [facility] EDT Care) F20.89 Schizophrenia Other schizophrenia Problem 08/17/2019 eC W3 ([facility] 12:00:00 AM [facility] EDT Care) F20.89 Schizophrenia Other schizophrenia Problem 08/17/2019 eC W3 ([facility] 12:00:00 AM [facility] EDT Care) G89.29 Other chronic pain Other chronic pain Problem 0 eCW3 ([facility] 12:00:00 AM [facility] EST Care) B20 Human Human Problem 02/20/2019 eCW3 ([facility] immunodeficiency immunodeficiency 12:00:00 AM [facility] virus infection virus [HIV] disease EDT Care) B20 Human Human Problem 02/20/2019 eCW3 ([facility] immunodeficiency immunodeficiency 12:00:00 AM [facility] virus infection virus (HIV) disease EDT Care) M77.31 Calcaneal spur, right Calcaneal spur, Problem 9 eCW3 ([facility] foot right foot 12:00:00 AM [facility] EDT Care) M77.32 Calcaneal spur of Calcaneal spur of Problem 02/19/2019 eCW3 ([facility] left foot left foot 12:00:00 AM [facility] EDT Care) M76.62 Achilles tendinitis Achilles tendinitis Problem 019 eCW3 ([facility] of left lower of left lower 12:00:00 AM [facility] extremity extremity EDT Care) M72.2 Plantar fascial 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/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 12:00 :00 AM [facility] feet EDT Care) M76.61 Achilles tendinitis, Achilles tendinitis, Problem 02/19 eCW3 ([facility] right leg right leg 12:00:00 AM [facility] EDT Care) M76.61 Achilles tendinitis, Achilles tendinitis, Problem 02/19 eCW3 ([facility] right leg right leg 12:00:00 AM [facility] EDT Care) M77.31 Calcaneal spur, right Calcaneal spur, Problem 9 eCW3 ([facility] foot right foot 12:00:00 AM [facility] EDT Care) M77.32 Calcaneal spur of Calcaneal spur of Problem 02/19/2019 eCW3 ([facility] left foot left foot 12:00:00 AM [facility] EDT Care) M76.62 Achilles tendinitis Achilles tendinitis Problem 019 eCW3 ([facility] of left lower of left lower 12:00:00 AM [facility] extremity extremity EDT Care) M72.2 Plantar fascial [...] Diastolic blood 89 mm[Hg] 89 mm[Hg] eCW3 ([facility]) Systolic blood 122 mm[Hg] 122 mm[Hg] eCW3 ([facility]) Body temperature 98.4 [degF] 98.4 [degF] eCW3 ( [facility]) Heart rate 18 /min 18 /min eCW3 ([facility]) Body mass index 60.93 kg/m2 60.93 kg/m2 eCW3 ([facility] (BMI) [Ratio] [facility]) Body weight 344 [lb_av] 344 [lb_av] eCW3 ([facility]) Body height [in_i] eCW3 ([facility]) Patient Treatment Plan of Care Planned Activity Planned Date Details Description Data Source (s) Hydrocortisone Acetate 1 % 09/04/2019 12:00:00 eCW3 ([facility]) Biktarvy 50-200-25 MG 08/14/2019 12:00:00 eCW3 ([facility]) Biktarvy 50-200-25 MG 08/14/2019 12:00:00 eCW3 ([facility]) Biktarvy 50-200-25 MG 08/14/2019 12:00:00 eCW3 ([facility]) Biktarvy 50-200-25 MG 08/14/2019 12:00:00 eCW3 ([facility]) Nicotine 4 MG Chewing Gum 06/15/2019 12:00:00 eCW3 [facility]) Nicotine 4 MG Chewing Gum 06/15/2019 12:00:00 eCW3 ([facility] [[facility]] [facility]) Nicotine 4 MG Chewing Gum 06/15/2019 12:00:00 eCW3 ([facility]) Nicotine 4 MG Chewing Gum 06/15/2019 12:00:00 eCW3 [facility]) valacyclovir 500 MG Oral 02/19/2019 12:00:00 eCW3 ([facility] Tablet [facility]) valacyclovir 500 MG Oral 02/19/2019 12:00:00 eCW3 ([facility] Tablet [facility]) valacyclovir 500 MG Oral 02/19/2019 12:00:00 eCW3 ([facility] Table[facility]) valacyclovir 500 MG Oral 02/19/2019 12:00:00 eCW3 ([facility] Table[facility])
[2020-03-14] MEDS: chlordiazePOXIDE HCL 25 MG CAPSULE PO SCH ×2 (18:23→22:01)
[2020-03-14] MEDS: hydrOXYzine PAMOATE 25 MG CAPSULE (FP) PO SCH ×2 (18:23→22:02)
[2020-03-14] MEDS: MELATONIN 5 MG TABLETS PO SCH (21:48)
[2020-03-14] MEDS: THIAMINE HCL 100 MG TABLET (FP) PO SCH (21:48)
[2020-03-14] MEDS: ALBUTEROL SO4 HFA INHALER IH PRN (21:55)
[2020-03-15] MEDS ORDERED: metFORMIN HCL 500 MG TABLET (FP) PO SCH (07:00)
[2020-03-15] MEDS: chlordiazePOXIDE HCL 25 MG CAPSULE PO SCH ×4 (07:58→22:09)
[2020-03-15] MEDS: hydrOXYzine PAMOATE 25 MG CAPSULE (FP) PO SCH ×2 (07:58→11:15)
--- NOTE | 2020-03-15 08:30 | PN ---
Teaching Attending Note Name of Resident: Leticia Arguelles ATTENDING PHYSICIAN STATEMENT I saw and evaluated the patient. I reviewed the resident's note and discussed the case with the resident. I agree with the resident's findings and plan as documented. SUBJECTIVE: OBJECTIVE: ASSESSMENT AND PLAN: 1. Alcohol use disorder, uncomplicated withdrawal Plan 1. Librium detox protocol
[2020-03-15] MEDS ORDERED: LISINOPRIL 5 MG TABLET ONE (09:50)
[2020-03-15] MEDS ORDERED: LISINOPRIL 10 MG TABLET ONE (09:50)
--- NOTE | 2020-03-15 09:56 | PN ---
S CIWA - CIWA Score Nausea/Vomitin-Mild Nausea/No Vomiting Muscle Tremors: 3 Anxiety: 3 Agitation: 1-Slight > Activity Paroxysmal Sweats: No Perspiration Orientation: 0-Oriented Tacttile Disturbances: 0-None Auditory Disturbances: 0-None Visual Disturbances: 2-Mild Sensitivity Headache: 2-Mild CIWA-Ar Total Score: 12 [facility] Progress Note (SOAP) Subjective: 54 years old female was admitted on 03/14/20 for alcohol withdrawal sx management treating with librium detox regiment physician underwriter call [phone] ms marti is taking januvia 100mg po acbk metformin 1000mg po bid ms marti's pharmacist states that last deliver to ER was 03/10/20 unknown name ER Objective: 03/15/20 10:13 Vital Signs - 24 hr 03/14/20 03/14/20 03/14/20 15:51 18:05 20:51 Temperature 97.3 F L 97.8 F 97.7 F Pulse Rate 80 80 98 H Respiratory 16 18 17 Rate Blood Pressure 159/92 149/94 153/102 H O2 Sat by Pulse 98 98 Oximetry (%) 03/15/20 03/15/20 06:35 08:55 Temperature 97.6 F 97.7 F Pulse Rate 73 90 Respiratory 18 16 Rate Blood Pressure 130/77 142/92 O2 Sat by Pulse 97 97 Oximetry (%) pharmacist states that 5 mg of lisinopril had been delivered on 03/10/20 to "ER" due to bp elevation continue lisinopril with parameter to hold lisinopril Laboratory Tests 03/14/20 17:36 POC Glucometer 199 03/15/20 10:14 lab pending resume metformin 1000mg po bid and januvia 100mg po daily as well as insulin coverage Assessment: 03/15/20 10:15 alcohol withdrawal Plan: librium regiment
[2020-03-15] MEDS: LISINOPRIL PO SCH ×2 (10:00→11:11)
[2020-03-15] MEDS ORDERED: LISINOPRIL 10 MG TABLET PO SCH (10:00)
[2020-03-15] MEDS: ASPIRIN COATED 81 MG TABLET.EC PO SCH (10:11)
[2020-03-15] MEDS: HYDROCORTISONE 2.5% LOTION - 1 BOTTLE TP SCH (10:53)
[2020-03-15] MEDS: NICOTINE 14 MG/24 HOURS TOPICAL PATCH TD SCH (10:55)
[2020-03-15] MEDS: PRENATAL VITAMINS W/ FOLIC ACID TABLET (FP) PO SCH (10:56)
[2020-03-15] MEDS: BACITRACIN 0.9 GM PACKET TP SCH (10:58)
--- NOTE | 2020-03-15 11:12 | CONSULT ---
[facility] Psychiatric Consult - Data Date of interview: 03/15/20 Admission source: [facility] Identifying data: Patient is a 54 year old single female, mother of four, unemployed, domiciled, and is supported with SSI benefits. This is one of multiple admissions for patient. Patient admitted to for alcohol and cocaine dependence. Substance Abuse History: Smoking History. Smoking history: Current every day smoker. Have you smoked in the past 12 months: Yes. Aproximately how many cigarettes per day: 20. - Alcohol/Substance Use. Hx Alcohol Use: Yes. Number of Drinks Daily: 36 (Beers, Vodka, Wine.). History of Substance Use: reports: Cocaine. Date of Last Use: 03/15/19 Medical History: Medical profile is remarkable for morbid obesity, bronchial asthma, hypertension, HIV infection since 1996 (on ART medications), peripheral neuropathy, positive PPD (treated with INH/B6 in 1990), antecedent of umbilical herniorraphy, tubal ligation and history of treatment of syphilis. Psychiatric History: Patient's first psychiatric contact was at 22 years of age after endorsing suicidal ideation while at [facility]. Reports being diagnosed with schizophrenia and was prescribed haldol 10mg HS. After being release from [facility] she continued treatment at an outpatient clinic and continued to be treated with haldol. Ms. Tai reports history of multiple psychiatric hospitalizations ([facility], [facility], [facility]). Ms. Tai is totally lost in outpatient psychiatric care. States that she most recently saw an outpatient psychiatrist three years ago in [place], [place]. States that she receives seroquel when admitted to detox/ rehab facilities. Ms. Tai reports history of three suicide attempts (ingested rat poison + 2 overdoses). At present patient reports stable mood. Patient denies auditory/ visual hallucinations, suicidal/ homicidal ideation. Physical/Sexual Abuse/Trauma History: denies. Mental Status Exam - Mental Status Exam Alert and Oriented to: Time, Place, Person Cognitive Function: Good Patient Appearance: Disheveled Mood: Withdrawn Affect: Mood Congruent Patient Behavior: Fatigued, Cooperative Speech Pattern: Appropriate Voice Loudness: Mildly Soft/Quiet Thought Process: Goal Oriented Thought Disorder: Not Present Hallucinations: Denies Suicidal Ideation: Denies Homicidal Ideation: Denies Insight/Judgement: Poor Sleep: Poorly Appetite: Fair Muscle strength/Tone: Normal Gait/Station: Normal Psychiatric Findings - Problem List ([place] 1, 2,3) (1) Alcohol dependence with uncomplicated withdrawal Status: Acute (2) Nicotine dependence Status: Chronic (3) Alcohol dependence Status: Chronic (4) Cocaine dependence Status: Chronic (5) History of schizophrenia Status: Chronic - Initial Treatment Plan Initial Treatment Plan: Psychoeducation provided. Detoxification in progress. EKG repeated on 03/15/20. EKG does not indicate prolong QT. Will order Seroquel 100mg HS. Benefits and side effects discussed. Verbal consent given.
[2020-03-15 11:49] LABS: HEMATOCRIT 38.4 % (32.4-45.2); HEMOGLOBIN 12.5 GM/dL (10.7-15.3); MCH 28.4 pg (25.7-33.7); MCHC 32.5 g/dl (32.0-36.0); MEAN CELL VOLUME 87.2 fl (80-96); PLATELET COUNT 332 K/MM3 (134-434); RDW 16.5 % (11.6-15.6); WHITE BLOOD COUNT 9.4 K/mm3 (4.0-10.0)
[2020-03-15 12:00] LABS: ALBUMIN 3.1 g/dl (3.4-5.0); BILIRUBIN,TOTAL 0.4 mg/dL (0.2-1); BLOOD UREA NITROGEN 11.6 mg/dL (7-18); CALCIUM 8.5 mg/dL (8.5-10.1); CREATININE 0.8 mg/dL (0.55-1.3); POTASSIUM 3.9 mmol/L (3.5-5.1); TOT PROT 8.4 g/dl (6.4-8.2)
--- NOTE | 2020-03-15 13:37 | EKG ---
Test Reason : Blood Pressure : / mmHG Vent. Rate : 077 BPM Atrial Rate : 077 BPM P-R Int : 146 ms QRS Dur : 094 ms QT Int : 400 ms P-R-T Axes : 042 051 051 degrees QTc Int : 452 ms SINUS RHYTHM WITH MARKED SINUS ARRHYTHMIA OTHERWISE NORMAL ECG WHEN COMPARED WITH ECG OF 01-JUL-2019 22:12, NONSPECIFIC T WAVE ABNORMALITY NO LONGER EVIDENT IN LATERAL LEADS Confirmed by MD Alen, Marcial ([id number]) on 03/15/2020 1:36:52 PM Referred By: Confirmed By:Marcial Lowry MD
[2020-03-15] MEDS: BICTEGRAV/EMTRICIT/TENOFOV (BIKTARVY) 50-200-25 MG TABLET PO SCH (15:49)
[2020-03-15] MEDS: metFORMIN HCL 500 MG TABLET (FP) PO SCH (17:28)
[2020-03-15] MEDS: INSULIN SLIDING SCALE (NOVOLOG) 1 VIAL SQ SCH (17:32)
[2020-03-15] MEDS: THIAMINE HCL 100 MG TABLET (FP) PO SCH (22:09)
[2020-03-15] MEDS: QUEtiapine FUMARATE 100 MG TABLET (FP) PO SCH (22:09)
[2020-03-15] MEDS: MELATONIN 5 MG TABLETS PO SCH (22:09)
[2020-03-16] MEDS: chlordiazePOXIDE HCL 25 MG CAPSULE PO SCH ×4 (05:49→22:30)
[2020-03-16] MEDS: metFORMIN HCL 500 MG TABLET (FP) PO SCH ×2 (07:09→17:42)
[2020-03-16] MEDS: INSULIN SLIDING SCALE (NOVOLOG) 1 VIAL SQ SCH ×2 (07:09→17:44)
[2020-03-16] MEDS ORDERED: LISINOPRIL 10 MG TABLET ONE (09:07)
[2020-03-16] MEDS ORDERED: LISINOPRIL 5 MG TABLET ONE (09:07)
--- NOTE | 2020-03-16 10:19 | PN ---
S CIWA - CIWA Score Nausea/Vomitin-No Nausea/No Vomiting Muscle Tremors: 2 Anxiety: 3 Agitation: 0-Normal Activity Paroxysmal Sweats: No Perspiration Orientation: 0-Oriented Tacttile Disturbances: 1-Very Mild Itch/Numbness Auditory Disturbances: 0-None Visual Disturbances: 1-Very Mild Sensitivity Headache: 2-Mild CIWA-Ar Total Score: 9 BHS Progress Note (SOAP) Subjective: 54 years old grossly obese female was admitted on 03/14/20 for alcohol withdrawal sx management treating with librium detox regiment ate breakfast in room tolerated food well resting in bed "I am tired" ms marti is happy that seroquel is on board seen by psychiatrist hung seroquel Objective: 03/16/20 10:21 Vital Signs - 24 hr 03/15/20 03/15/20 03/15/20 14:01 17:10 20:55 Temperature 97.2 F L 98.1 F 97.3 F L Pulse Rate 61 102 H 87 Respiratory 16 19 20 Rate Blood Pressure 124/64 127/84 105/70 O2 Sat by Pulse 96 Oximetry (%) 03/16/20 03/16/20 06:37 08:37 Temperature 97.1 F L 97.3 F L Pulse Rate 78 73 Respiratory 18 18 Rate Blood Pressure 130/79 126/67 O2 Sat by Pulse 99 99 Oximetry (%) Laboratory Tests 03/14/20 03/14/20 03/14/20 07:30 07:30 07:30 WBC 9.4 RBC 4.40 Hgb 12.5 Hct 38.4 MCV 87.2 MCH 28.4 MCHC 32.5 RDW 16.5 H Plt Count 332 MPV 9.0 D Sodium 138 Potassium 3.9 Chloride 105 Carbon Dioxide 27 Anion Gap 6 L BUN 11.6 Creatinine 0.8 Est GFR (CKD-EPI)AfAm 98.24 Est GFR (CKD-EPI)NonAf 84.76 POC Glucometer Random Glucose 210 H Calcium 8.5 Total Bilirubin 0.4 AST 25 ALT 39 Alkaline Phosphatase 84 Total Protein 8.4 H Albumin 3.1 L POC Urine HCG, Qual Syphilis Serology Reactive A* RPR Titer COVID-19 ([facility]) 03/14/20 03/14/20 03/14/20 07:30 16:01 17:36 WBC RBC Hgb Hct MCV MCH MCHC RDW Plt Count MPV Sodium Potassium Chloride Carbon Dioxide Anion Gap BUN Creatinine Est GFR (CKD-EPI)AfAm Est GFR (CKD-EPI)NonAf POC Glucometer 199 Random Glucose Calcium Total Bilirubin AST ALT Alkaline Phosphatase Total Protein Albumin POC Urine HCG, Qual Negative Syphilis Serology RPR Titer Reactive 1:1 H D COVID-19 ([facility]) 03/14/20 03/15/20 03/15/20 17:49 11:24 16:31 WBC RBC Hgb Hct MCV MCH MCHC RDW Plt Count MPV Sodium Potassium Chloride Carbon Dioxide Anion Gap BUN Creatinine Est GFR (CKD-EPI)AfAm Est GFR (CKD-EPI)NonAf POC Glucometer 146 215 Random Glucose Calcium Total Bilirubin AST ALT Alkaline Phosphatase Total Protein Albumin POC Urine HCG, Qual Syphilis Serology RPR Titer COVID-19 ([facility]) Not detected 03/16/20 05:51 WBC RBC Hgb Hct MCV MCH MCHC RDW Plt Count MPV Sodium Potassium Chloride Carbon Dioxide Anion Gap BUN Creatinine Est GFR (CKD-EPI)AfAm Est GFR (CKD-EPI)NonAf POC Glucometer 171 Random Glucose Calcium Total Bilirubin AST ALT Alkaline Phosphatase Total Protein Albumin POC Urine HCG, Qual Syphilis Serology RPR Titer COVID-19 ([facility]) 03/16/20 10:22 long history of diabetes treated with metformin and [facility] teaching on weight loss 03/16/20 10:25 syphilis contacted treated ms marti requests one boost penicillin Assessment: 03/16/20 10:23 Vital Signs - 24 hr 03/15/20 03/15/20 03/15/20 14:01 17:10 20:55 Temperature 97.2 F L 98.1 F 97.3 F L Pulse Rate 61 102 H 87 Respiratory 16 19 20 Rate Blood Pressure 124/64 127/84 105/70 O2 Sat by Pulse 96 Oximetry (%) 03/16/20 03/16/20 06:37 08:37 Temperature 97.1 F L 97.3 F L Pulse Rate 78 73 Respiratory 18 18 Rate Blood Pressure 130/79 126/67 O2 Sat by Pulse 99 99 Oximetry (%) Laboratory Tests 03/14/20 03/14/20 03/14/20 07:30 07:30 07:30 WBC 9.4 RBC 4.40 Hgb 12.5 Hct 38.4 MCV 87.2 MCH 28.4 MCHC 32.5 RDW 16.5 H Plt Count 332 MPV 9.0 D Sodium 138 Potassium 3.9 Chloride 105 Carbon Dioxide 27 Anion Gap 6 L BUN 11.6 Creatinine 0.8 Est GFR (CKD-EPI)AfAm 98.24 Est GFR (CKD-EPI)NonAf 84.76 POC Glucometer Random Glucose 210 H Calcium 8.5 Total Bilirubin 0.4 AST 25 ALT 39 Alkaline Phosphatase 84 Total Protein 8.4 H Albumin 3.1 L POC Urine HCG, Qual Syphilis Serology Reactive A* RPR Titer COVID-19 ([facility]) 03/14/20 03/14/20 03/14/20 07:30 16:01 17:36 WBC RBC Hgb Hct MCV MCH MCHC RDW Plt Count MPV Sodium Potassium Chloride Carbon Dioxide Anion Gap BUN Creatinine Est GFR (CKD-EPI)AfAm Est GFR (CKD-EPI)NonAf POC Glucometer 199 Random Glucose Calcium Total Bilirubin AST ALT Alkaline Phosphatase Total Protein Albumin POC Urine HCG, Qual Negative Syphilis Serology RPR Titer Reactive 1:1 H D COVID-19 ([facility]) 03/14/20 03/15/20 03/15/20 17:49 11:24 16:31 WBC RBC Hgb Hct MCV MCH MCHC RDW Plt Count MPV Sodium Potassium Chloride Carbon Dioxide Anion Gap BUN Creatinine Est GFR (CKD-EPI)AfAm Est GFR (CKD-EPI)NonAf POC Glucometer 146 215 Random Glucose Calcium Total Bilirubin AST ALT Alkaline Phosphatase Total Protein Albumin POC Urine HCG, Qual Syphilis Serology RPR Titer COVID-19 ([facility]) Not detected 03/16/20 05:51 WBC RBC Hgb Hct MCV MCH MCHC RDW Plt Count MPV Sodium Potassium Chloride Carbon Dioxide Anion Gap BUN Creatinine Est GFR (CKD-EPI)AfAm Est GFR (CKD-EPI)NonAf POC Glucometer 171 Random Glucose Calcium Total Bilirubin AST ALT Alkaline Phosphatase Total Protein Albumin POC Urine HCG, Qual Syphilis Serology RPR Titer COVID-19 ([facility]) syphilis contacted treated 03/16/20 10:30 alcohol withdrawal Plan: librium regiment
[2020-03-16] MEDS: LISINOPRIL PO SCH (10:21)
[2020-03-16] MEDS: NICOTINE 14 MG/24 HOURS TOPICAL PATCH TD SCH (10:21)
[2020-03-16] MEDS: PRENATAL VITAMINS W/ FOLIC ACID TABLET (FP) PO SCH (10:21)
[2020-03-16] MEDS: BACITRACIN 0.9 GM PACKET TP SCH (10:21)
[2020-03-16] MEDS: BICTEGRAV/EMTRICIT/TENOFOV (BIKTARVY) 50-200-25 MG TABLET PO SCH (10:22)
[2020-03-16] MEDS: ASPIRIN COATED 81 MG TABLET.EC PO SCH (10:22)
[2020-03-16] MEDS: HYDROCORTISONE 2.5% LOTION - 1 BOTTLE TP SCH (10:22)
[2020-03-16] MEDS ORDERED: PENICILLIN G BENZATHINE 2,400,000 UNIT/4 ML PFS IM ONE (10:29)
[2020-03-16] MEDS: ACETAMINOPHEN 325 MG TABLET (FP) PO PRN (14:53)
[2020-03-16] MEDS ORDERED: ALBUTEROL SO4 2.5/IPRATROPIUM 0.5 INH SOL 3 ML VIAL.NEB. NEB ONE (14:53)
[2020-03-16] MEDS ORDERED: ALBUTEROL SO4 2.5/IPRATROPIUM 0.5 INH SOL 3 ML VIAL.NEB. NEB PRN (14:58)
[2020-03-16] MEDS: ALBUTEROL SO4 HFA INHALER IH PRN (15:00)
[2020-03-16] MEDS: ALBUTEROL SO4 2.5/IPRATROPIUM 0.5 INH SOL 3 ML VIAL.NEB. NEB PRN (15:52)
[2020-03-16] MEDS: MENTHOL/PHENOL 1 EACH UD MM PRN (17:44)
[2020-03-16] MEDS: THIAMINE HCL 100 MG TABLET (FP) PO SCH (22:30)
[2020-03-16] MEDS: MELATONIN 5 MG TABLETS PO SCH (22:30)
[2020-03-16] MEDS: QUEtiapine FUMARATE 100 MG TABLET (FP) PO SCH (22:30)
[2020-03-17] MEDS ORDERED: chlordiazePOXIDE HCL 10 MG CAPSULE PO PRN
[2020-03-17] MEDS: chlordiazePOXIDE HCL 10 MG CAPSULE PO SCH ×4 (08:20→22:06)
[2020-03-17] MEDS: metFORMIN HCL 500 MG TABLET (FP) PO SCH ×2 (08:20→16:58)
[2020-03-17] MEDS ORDERED: LISINOPRIL 5 MG TABLET ONE (08:20)
[2020-03-17] MEDS ORDERED: LISINOPRIL 10 MG TABLET ONE (08:21)
[2020-03-17] MEDS: INSULIN SLIDING SCALE (NOVOLOG) 1 VIAL SQ SCH ×2 (08:21→16:55)
[2020-03-17] MEDS: BACITRACIN 0.9 GM PACKET TP SCH (10:14)
[2020-03-17] MEDS: LISINOPRIL PO SCH (10:15)
[2020-03-17] MEDS: PRENATAL VITAMINS W/ FOLIC ACID TABLET (FP) PO SCH (10:16)
[2020-03-17] MEDS: hydrOXYzine PAMOATE 25 MG CAPSULE (FP) PO PRN (10:16)
[2020-03-17] MEDS: BICTEGRAV/EMTRICIT/TENOFOV (BIKTARVY) 50-200-25 MG TABLET PO SCH (10:17)
[2020-03-17] MEDS: ASPIRIN COATED 81 MG TABLET.EC PO SCH (10:17)
[2020-03-17] MEDS: HYDROCORTISONE 2.5% LOTION - 1 BOTTLE TP SCH (10:19)
[2020-03-17] MEDS: NICOTINE 14 MG/24 HOURS TOPICAL PATCH TD SCH (10:52)
--- NOTE | 2020-03-17 11:43 | PN ---
S CIWA - CIWA Score Nausea/Vomitin-No Nausea/No Vomiting Muscle Tremors: None Anxiety: 2 Agitation: 1-Slight > Activity Paroxysmal Sweats: 2 Orientation: 0-Oriented Tacttile Disturbances: 0-None Auditory Disturbances: 0-None Visual Disturbances: 0-None Headache: 2-Mild CIWA-Ar Total Score: 7 BHS Progress Note (SOAP) Subjective: c/o sweats, anxiety, and headache. Objective: 03/17/20 11:42 Vital Signs 03/17/20 08:34 Temperature 97.3 F L Pulse Rate 106 H Respiratory 18 Rate Blood Pressure 117/77 Assessment: 03/17/20 11:42 AOX3, in no acute respiratory distress. Full ROM, ambulating in the unit. Withdrawal symptoms. Plan: continue detox.
[2020-03-17] MEDS: MENTHOL/PHENOL 1 EACH UD MM PRN ×2 (17:59→22:07)
[2020-03-17] MEDS: MELATONIN 5 MG TABLETS PO SCH (22:06)
[2020-03-17] MEDS: QUEtiapine FUMARATE 100 MG TABLET (FP) PO SCH (22:06)
[2020-03-17] MEDS: THIAMINE HCL 100 MG TABLET (FP) PO SCH (22:06)
[2020-03-18] MEDS: metFORMIN HCL 500 MG TABLET (FP) PO SCH ×2 (06:58→17:46)
[2020-03-18] MEDS: INSULIN SLIDING SCALE (NOVOLOG) 1 VIAL SQ SCH ×2 (06:59→17:49)
[2020-03-18] MEDS: chlordiazePOXIDE HCL 10 MG CAPSULE PO SCH ×2 (06:59→17:46)
[2020-03-18] MEDS ORDERED: LISINOPRIL 10 MG TABLET ONE (09:20)
[2020-03-18] MEDS ORDERED: LISINOPRIL 5 MG TABLET ONE (09:20)
[2020-03-18] MEDS: ALBUTEROL SO4 2.5/IPRATROPIUM 0.5 INH SOL 3 ML VIAL.NEB. NEB PRN (10:23)
[2020-03-18] MEDS: HYDROCORTISONE 2.5% LOTION - 1 BOTTLE TP SCH (10:36)
[2020-03-18] MEDS: PRENATAL VITAMINS W/ FOLIC ACID TABLET (FP) PO SCH (10:36)
[2020-03-18] MEDS: BACITRACIN 0.9 GM PACKET TP SCH (10:36)
[2020-03-18] MEDS: BICTEGRAV/EMTRICIT/TENOFOV (BIKTARVY) 50-200-25 MG TABLET PO SCH (10:37)
[2020-03-18] MEDS: hydrOXYzine PAMOATE 25 MG CAPSULE (FP) PO PRN (10:37)
[2020-03-18] MEDS: NICOTINE 14 MG/24 HOURS TOPICAL PATCH TD SCH (10:37)
[2020-03-18] MEDS: LISINOPRIL PO SCH (10:37)
[2020-03-18] MEDS: ASPIRIN COATED 81 MG TABLET.EC PO SCH (10:37)
--- NOTE | 2020-03-18 12:16 | PN ---
S CIWA - CIWA Score Nausea/Vomitin-No Nausea/No Vomiting Muscle Tremors: None Anxiety: 2 Agitation: 0-Normal Activity Paroxysmal Sweats: 2 Orientation: 0-Oriented Tacttile Disturbances: 0-None Auditory Disturbances: 0-None Visual Disturbances: 0-None Headache: 1-Very Mild CIWA-Ar Total Score: 5 S Progress Note (SOAP) Subjective: Pt seen and examined at bedside this morning. Pt with improving withdrawal symptoms. Pt c/o of mild wheezing. Objective: Last Vital Signs Temp Pulse Resp BP Pulse Ox 97.9 F 98 H 19 124/78 100 03/18/20 09:00 03/18/20 09:00 03/18/20 09:00 03/18/20 09:00 03/18/20 09:00 Gen - AOx3; well-nourished; anxious appearing CV - RRR, normal s1/s2 Pulm - CTAB Ext - moving all extremities equally/spontaneously; moist palms; steady gait Laboratory 03/14/20 03/14/20 03/14/20 07:30 07:30 07:30 WBC 9.4 K/mm3 K/mm3 (4.0-10.0) RBC 4.40 M/mm3 M/mm3 (3.60-5.2) Hgb 12.5 GM/dL GM/dL (10.7-15.3) Hct 38.4 % % (32.4-45.2) MCV 87.2 fl fl (80-96) MCH 28.4 pg pg (25.7-33.7) MCHC 32.5 g/dl g/dl (32.0-36.0) RDW 16.5 % H % (11.6-15.6) Plt Count 332 K/MM3 K/MM3 (134-434) MPV 9.0 fl D fl (7.5-11.1) Sodium 138 mmol/L mmol/L (136-145) Potassium 3.9 mmol/L mmol/L (3.5-5.1) Chloride 105 mmol/L mmol/L (98-107) Carbon Dioxide 27 mmol/L mmol/L (21-32) Anion Gap 6 MMOL/L L MMOL/L (8-16) BUN 11.6 mg/dL mg/dL (7-18) Creatinine 0.8 mg/dL mg/dL (0.55-1.3) Est GFR (CKD-EPI)AfAm 98.24 Est GFR (CKD-EPI)NonAf 84.76 POC Glucometer Random Glucose 210 mg/dL H mg/dL (74-106) Calcium 8.5 mg/dL mg/dL (8.5-10.1) Total Bilirubin 0.4 mg/dL mg/dL (0.2-1) AST 25 U/L U/L (15-37) ALT 39 U/L U/L (13-61) Alkaline Phosphatase 84 U/L U/L (45-117) Total Protein 8.4 g/dl H g/dl (6.4-8.2) Albumin 3.1 g/dl L g/dl (3.4-5.0) POC Urine HCG, Qual Syphilis Serology Reactive A* (NONREACTIVE) RPR Titer COVID-19 ([facility]) 03/14/20 03/14/20 03/14/20 07:30 16:01 17:36 WBC RBC Hgb Hct MCV MCH MCHC RDW Plt Count MPV Sodium Potassium Chloride Carbon Dioxide Anion Gap BUN Creatinine Est GFR (CKD-EPI)AfAm Est GFR (CKD-EPI)NonAf POC Glucometer 199 UNITS UNITS (80-120) Random Glucose Calcium Total Bilirubin AST ALT Alkaline Phosphatase Total Protein Albumin POC Urine HCG, Qual Negative Syphilis Serology RPR Titer Reactive 1:1 H D (NONREACTIVE) COVID-19 ([facility]) 03/14/20 03/15/20 03/15/20 17:49 11:24 16:31 WBC RBC Hgb Hct MCV MCH MCHC RDW Plt Count MPV Sodium Potassium Chloride Carbon Dioxide Anion Gap BUN Creatinine Est GFR (CKD-EPI)AfAm Est GFR (CKD-EPI)NonAf POC Glucometer 146 UNITS UNITS 215 UNITS UNITS (80-120) (80-120) Random Glucose Calcium Total Bilirubin AST ALT Alkaline Phosphatase Total Protein Albumin POC Urine HCG, Qual Syphilis Serology RPR Titer COVID-19 ([facility]) Not detected (Not Detected) 03/16/20 03/16/20 03/17/20 05:51 16:32 16:30 WBC RBC Hgb Hct MCV MCH MCHC RDW Plt Count MPV Sodium Potassium Chloride Carbon Dioxide Anion Gap BUN Creatinine Est GFR (CKD-EPI)AfAm Est GFR (CKD-EPI)NonAf POC Glucometer 171 UNITS UNITS 208 UNITS UNITS 177 UNITS UNITS (80-120) (80-120) (80-120) Random Glucose Calcium Total Bilirubin AST ALT Alkaline Phosphatase Total Protein Albumin POC Urine HCG, Qual Syphilis Serology RPR Titer COVID-19 (KI[facility]) 03/18/20 06:56 WBC RBC Hgb Hct MCV MCH MCHC RDW Plt Count MPV Sodium Potassium Chloride Carbon Dioxide Anion Gap BUN Creatinine Est GFR (CKD-EPI)AfAm Est GFR (CKD-EPI)NonAf POC Glucometer 160 UNITS UNITS (80-120) Random Glucose Calcium Total Bilirubin AST ALT Alkaline Phosphatase Total Protein Albumin POC Urine HCG, Qual Syphilis Serology RPR Titer COVID-19 (KILEY) 03/18/20 12:16 03/18/20 12:17 Assessment: Pt with improving withdrawal symptoms; anticipated discharge tomorrow. With mild wheezing. 03/18/20 12:18 Plan: Continue librium detox protocol. Duonebs for wheezing.
[2020-03-18] MEDS: ACETAMINOPHEN 325 MG TABLET (FP) PO PRN (13:38)
[2020-03-18] MEDS: MENTHOL/PHENOL 1 EACH UD MM PRN (13:39)
[2020-03-18] MEDS: MELATONIN 5 MG TABLETS PO SCH (23:18)
[2020-03-18] MEDS: QUEtiapine FUMARATE 100 MG TABLET (FP) PO SCH (23:18)
[2020-03-18] MEDS: THIAMINE HCL 100 MG TABLET (FP) PO SCH (23:18)
[2020-03-19] MEDS ORDERED: chlordiazePOXIDE HCL 10 MG CAPSULE PO ONE (05:00)
[2020-03-19] MEDS: metFORMIN HCL 500 MG TABLET (FP) PO SCH (06:30)
[2020-03-19] MEDS: INSULIN SLIDING SCALE (NOVOLOG) 1 VIAL SQ SCH (06:30)
[2020-03-19] MEDS ORDERED: LISINOPRIL 10 MG TABLET ONE (09:53)
[2020-03-19] MEDS ORDERED: LISINOPRIL 5 MG TABLET ONE (09:53)
[2020-03-19] MEDS: BICTEGRAV/EMTRICIT/TENOFOV (BIKTARVY) 50-200-25 MG TABLET PO SCH (10:22)
[2020-03-19] MEDS: LISINOPRIL PO SCH (10:22)
[2020-03-19] MEDS: NICOTINE 14 MG/24 HOURS TOPICAL PATCH TD SCH (10:23)
[2020-03-19] MEDS: BACITRACIN 0.9 GM PACKET TP SCH (10:23)
[2020-03-19] MEDS: ASPIRIN COATED 81 MG TABLET.EC PO SCH (10:23)
[2020-03-19] MEDS: HYDROCORTISONE 2.5% LOTION - 1 BOTTLE TP SCH (10:23)
[2020-03-19] MEDS: PRENATAL VITAMINS W/ FOLIC ACID TABLET (FP) PO SCH (10:23)
--- NOTE | 2020-03-19 10:42 | DS ---
[facility] Detox Discharge Summary Admission Date: 03/14/20 Discharge Date: 03/19/20 - History Present History: Alcohol Dependence, Cocaine Dependence Additional Comments: As per H&P: "54 yo F presenting for detox from alcohol; "need to stop the alcohol, cigarettes, crack cocaine, and K2." Pt was last here 07/01-07/05/19 completed detox. Pt reports she would like to do rehab after detox this time. Pt reports being sober for several months and relapsing in November 2019. Pt reports she has had no periods of sobriety since she relapses in November. No recent blackouts/seizures. Pt reports feeling withdrawal symptoms ("shakes," nausea, and anxious). Pt was in [place] 8 weeks ago, visiting her brother. Pt reports going to the [facility] ED on 03/10 for coughing/wheezing/chest tightness (no fever) after pt no longer had nebulizer treatments at home. Pt was given duonebs, prednisone, azithromycin, and ceftriaxone. She was discharged with albuterol nebulizer solution, prednisone (4 days course, completed today), azithromycin (pt reports finishing the course of antibiotics she was given). PMH - HIV + (per pt, last CD4 1294, viral load undetectable; biktarvy); peripheral neuropathy (in b/l feet; gabapentin); T2DM (metformin); HTN (lisinopril); obesity PSH - hernia repair (2014); tubal ligation (2002) Psych - schizophrenia (trazadone, seroquel; last taken 2-3 weeks ago) Soc/Domiciled - homeless - "in between shelters" Legal - none". Pt is medically cleared and discharged to [facility], [facility] for continued management. Pt completed the detox protocol. Pt is encouraged to follow through with the rehab protocol which she verbalized understanding. Pt is AOX3, in no acute respiratory distress, Full ROM, and ambulatory. Pertinent Past History: h/o alcohol and cocaine use disorder. - Physical Exam Results Vital Signs: Vital Signs Temperature 98.1 F 03/19/20 06:36 Pulse Rate 78 03/19/20 06:36 Respiratory Rate 20 03/19/20 06:36 Blood Pressure 149/76 03/19/20 06:36 O2 Sat by Pulse Oximetry (%) 96 03/19/20 06:36 Vital Signs 10/17/20 10/17/20 06:36 10:08 Temperature 98.1 F 98.8 F Pulse Rate 78 94 H Respiratory 20 20 Rate Blood Pressure 149/76 153/93 O2 Sat by Pulse 96 98 Oximetry (%) Laboratory Last Values WBC 9.4 K/mm3 (4.0-10.0) 03/14/20 07:30 RBC 4.40 M/mm3 (3.60-5.2) 03/14/20 07:30 Hgb 12.5 GM/dL (10.7-15.3) 03/14/20 07:30 Hct 38.4 % (32.4-45.2) 03/14/20 07:30 MCV 87.2 fl (80-96) 03/14/20 07:30 MCH 28.4 pg (25.7-33.7) 03/14/20 07:30 MCHC 32.5 g/dl (32.0-36.0) 03/14/20 07:30 RDW 16.5 % (11.6-15.6) H 03/14/20 07:30 Plt Count 332 K/MM3 (134-434) 03/14/20 07:30 MPV 9.0 fl (7.5-11.1) D 03/14/20 07:30 Sodium 138 mmol/L (136-145) 03/14/20 07:30 Potassium 3.9 mmol/L (3.5-5.1) 03/14/20 07:30 Chloride 105 mmol/L (98-107) 03/14/20 07:30 Carbon Dioxide 27 mmol/L (21-32) 03/14/20 07:30 Anion Gap 6 MMOL/L (8-16) L 03/14/20 07:30 BUN 11.6 mg/dL (7-18) 03/14/20 07:30 Creatinine 0.8 mg/dL (0.55-1.3) 03/14/20 07:30 Est GFR (CKD-EPI)AfAm 98.24 03/14/20 07:30 Est GFR (CKD-EPI)NonAf 84.76 03/14/20 07:30 POC Glucometer 163 UNITS (80-120) 03/19/20 05:57 Random Glucose 210 mg/dL (74-106) H 03/14/20 07:30 Calcium 8.5 mg/dL (8.5-10.1) 03/14/20 07:30 Total Bilirubin 0.4 mg/dL (0.2-1) 03/14/20 07:30 AST 25 U/L (15-37) 03/14/20 07:30 ALT 39 U/L (13-61) 03/14/20 07:30 Alkaline Phosphatase 84 U/L (45-117) 03/14/20 07:30 Total Protein 8.4 g/dl (6.4-8.2) H 03/14/20 07:30 Albumin 3.1 g/dl (3.4-5.0) L 03/14/20 07:30 POC Urine HCG, Qual Negative 03/14/20 16:01 Syphilis Serology Reactive (NONREACTIVE) A* 03/14/20 07:30 RPR Titer Reactive 1:1 (NONREACTIVE) H D 03/14/20 07:30 COVID-19 ([facility]) Not detected (Not Detected) 03/14/20 17:49 Labs noted. Pertinent Admission Physical Exam Findings: withdrawal symptoms. - Treatment Hospital Course: Detox Protocol Followed, Detoxed Safely, Responded well, Discharged Condition Good, Rehab Referral Accepted Patient has Accepted a Rehab Referral to: [facility], [facility]. - Medication Discharge Medications: Ambulatory Orders Aspirin [ASA -] 81 mg PO DAILY 30 Days #30 tab.chew 03/18/19 Metformin HCl [Glucophage] 1,000 mg PO BID 30 Days #60 tablet 03/18/19 traZODone HCL [Trazodone HCl] 50 mg PO HS #30 tablet 03/18/19 Quetiapine Fumarate [Seroquel -] 100 mg PO HS 03/14/20 Albuterol Sulfate Inhaler - [Ventolin HFA Inhaler -] 2 inh IH Q4H PRN #1 inhaler 03/18/20 Bictegrav/Emtricit/Tenofov Ala [Biktarvy 50-200-25 mg Tablet] 1 each PO DAILY 30 Days #30 tablet 03/18/20 Hydrocortisone 2.5% Lotion [Hytone 2.5% Lotion -] 1 applic TP DAILY 30 Days bottle 03/18/20 Lisinopril [Prinivil] 15 mg PO DAILY 30 Days #22.5 tablet 03/18/20 Sitagliptin Phosphate [Januvia -] 100 mg PO DAILY@0700 #30 each 03/18/20 - Diagnosis (1) Alcohol dependence with uncomplicated withdrawal Status: Acute (2) Asthma exacerbation Status: Chronic (3) Nicotine dependence Status: Chronic (4) Alcohol dependence Status: Chronic (5) Cannabis dependence Status: Chronic (6) Cocaine dependence Status: Chronic (7) Human immunodeficiency virus infection Status: Chronic - AMA Did Patient Leave Against Medical Advice: No
[2020-03-19 10:48] VITALS: BP 153/93; PULSE 94; TEMP 98.8
== END 2020-03-19 11:21 | disposition other institution (70) | DRG 774 ==
LOC: YASAS 13:20 → Y3N 17:33
PROVIDERS: ADMIT Allergy & Immunology; ATTEND Allergy & Immunology
PROC: HZ2ZZZZ Detoxification Services for Substance Abuse Treatment (ICD-10-PCS; principal; 2020-03-14)
DX: F10.230 Alcohol dependence with withdrawal, uncomplicated (principal); F14.20 Cocaine dependence, uncomplicated; F19.20 Other psychoactive substance dependence, uncomplicated; F17.210 Nicotine dependence, cigarettes, uncomplicated; F20.9 Schizophrenia, unspecified; Z21 Asymptomatic human immunodeficiency virus [HIV] infection status; G62.9 Polyneuropathy, unspecified; J45.901 Unspecified asthma with (acute) exacerbation; L97.121 Non-pressure chronic ulcer of left thigh limited to breakdown of skin; I10 Essential (primary) hypertension; E11.9 Type 2 diabetes mellitus without complications; Z79.84 Long term (current) use of oral hypoglycemic drugs; E66.01 Morbid (severe) obesity due to excess calories; Z68.44 Body mass index [BMI] 60.0-69.9, adult; Z98.890 Other specified postprocedural states; Z98.51 Tubal ligation status; Z59.0 Homelessness; Z86.19 Personal history of other infectious and parasitic diseases; Z87.42 Personal history of other diseases of the female genital tract
CPT/HCPCS: 36415; 71046-TC-FY; 80053; 81025; 82962; 85027; 86593; 86780; 93005; 93010; 94640; C9803; U0003

== ENCOUNTER 2021-06-08 11:47 | Inpatient (IN) | payer OTHER ==
[2021-06-08] MEDS ORDERED: IBUPROFEN 400 MG TABLET (FP) PO PRN (12:29)
[2021-06-08] MEDS ORDERED: P-EPHED 60MG/TRIPROLIDI 2.5MG TABLET PO PRN (12:29)
[2021-06-08] MEDS ORDERED: MAGNESIUM CITRATE 300 ML BOTTLE PO PRN (12:29)
[2021-06-08] MEDS ORDERED: NICOTINE POLACRILEX 2 MG GUM BUC PRN (12:29)
[2021-06-08] MEDS ORDERED: LOPERAMIDE HCL 2 MG CAPSULE PO PRN (12:29)
[2021-06-08] MEDS ORDERED: MAG HYDROX/AL HYDROX/SIMETH 30 ML UNIT-DOSE CUP PO PRN (12:29)
[2021-06-08] MEDS ORDERED: guaiFENesin 200 MG/10 ML 10 ML UNIT-DOSE CUPS PO PRN (12:29)
[2021-06-08] MEDS ORDERED: MAGNESIUM HYDROX 2400MG/30ML ORAL SUSPENSION 30 ML CUP PO PRN (12:29)
[2021-06-08] MEDS ORDERED: ALBUTEROL SO4 HFA INHALER IH PRN (12:32)
[2021-06-08 12:44] VITALS: BMI 59.0
[2021-06-08] MEDS: ACETAMINOPHEN 325 MG TABLET (FP) PO PRN (21:45)
[2021-06-08] MEDS: THIAMINE HCL 100 MG TABLET (FP) PO SCH (21:45)
[2021-06-08] MEDS ORDERED: MELATONIN 5 MG TABLETS PO SCH (22:00)
[2021-06-09] MEDS: PRENATAL VITAMINS W/ FOLIC ACID TABLET (FP) PO SCH (10:19)
[2021-06-09] MEDS: ASPIRIN 81 MG CHEWABLE TABLETS PO SCH (10:19)
[2021-06-09] MEDS: guaiFENesin 600 MG TABLET.ER (FP) PO SCH ×2 (10:19→22:20)
[2021-06-09 11:06] LABS: HEMATOCRIT 34.8 % (32.4-45.2); HEMOGLOBIN 11.6 GM/dL (10.7-15.3); MCH 28.2 pg (25.7-33.7); MCHC 33.2 g/dl (32.0-36.0); MEAN CELL VOLUME 84.9 fl (80-96); MEAN PLT VOLUME 7.6 fl (7.5-11.1); PLATELET COUNT 252 10^3/uL (134-434); RDW 16.6 % (11.6-15.6); WHITE BLOOD COUNT 6.3 K/mm3 (4.0-10.0)
[2021-06-09 11:17] LABS: CALCIUM 8.2 mg/dL (8.5-10.1)
[2021-06-09 11:18] LABS: BLOOD UREA NITROGEN 3.4 mg/dL (7-18)
[2021-06-09 11:21] LABS: CREATININE 0.8 mg/dL (0.55-1.3)
[2021-06-09 11:22] LABS: BILIRUBIN,TOTAL 0.6 mg/dL (0.2-1)
[2021-06-09 11:23] LABS: TOT PROT 7.5 g/dl (6.4-8.2)
[2021-06-09] MEDS ORDERED: FLU VACC QS2021-22(6MOS UP)/PF 60 MCG/0.5 ML SYRINGE IM ONE (12:00)
[2021-06-09] MEDS ORDERED: PNEUMOCOCCAL 23 VACCINE 0.5 ML VIAL IM ONE (12:00)
[2021-06-09] MEDS ORDERED: PNEUMOC 13-VAL CONJ-DIP CRM/PF 0.5 ML DISP.SYRIN IM ONE (12:00)
[2021-06-09] MEDS ORDERED: POTASSIUM CHLORIDE TABS 20 MEQ TABLET.ER (FP) PO ONE (14:31)
[2021-06-09] MEDS: metFORMIN HCL 500 MG TABLET (FP) PO SCH (18:01)
[2021-06-09] MEDS ORDERED: BUDESONIDE/FORMETEROL FUMARATE 160/4.5 mcg INHALER IH SCH (22:00)
[2021-06-09] MEDS: traZODone HCL 100 MG TABLET (FP) PO SCH (22:20)
[2021-06-09] MEDS: QUEtiapine FUMARATE 100 MG TABLET (FP) PO SCH (22:20)
[2021-06-09] MEDS: THIAMINE HCL 100 MG TABLET (FP) PO SCH (22:20)
[2021-06-09] MEDS: POTASSIUM CHLORIDE TABS 20 MEQ TABLET.ER (FP) PO SCH (22:20)
[2021-06-09] MEDS: BUDESONIDE/FORMETEROL FUMARATE 160/4.5 mcg INHALER IH SCH (22:22)
[2021-06-10] MEDS: metFORMIN HCL 500 MG TABLET (FP) PO SCH ×2 (07:02→16:58)
[2021-06-10] MEDS: POTASSIUM CHLORIDE TABS 20 MEQ TABLET.ER (FP) PO SCH ×2 (10:44→21:49)
[2021-06-10] MEDS: BICTEGRAV/EMTRICIT/TENOFOV (BIKTARVY) 50-200-25 MG TABLET PO SCH (10:44)
[2021-06-10] MEDS: guaiFENesin 600 MG TABLET.ER (FP) PO SCH ×2 (10:44→21:49)
[2021-06-10] MEDS: PRENATAL VITAMINS W/ FOLIC ACID TABLET (FP) PO SCH (10:45)
[2021-06-10] MEDS: ASPIRIN 81 MG CHEWABLE TABLETS PO SCH (10:45)
[2021-06-10] MEDS: BUDESONIDE/FORMETEROL FUMARATE 160/4.5 mcg INHALER IH SCH ×2 (10:46→21:49)
[2021-06-10] MEDS: traZODone HCL 100 MG TABLET (FP) PO SCH (21:49)
[2021-06-10] MEDS: QUEtiapine FUMARATE 100 MG TABLET (FP) PO SCH (21:49)
[2021-06-10] MEDS: THIAMINE HCL 100 MG TABLET (FP) PO SCH (21:49)
[2021-06-11] MEDS: metFORMIN HCL 500 MG TABLET (FP) PO SCH ×2 (07:46→16:40)
[2021-06-11] MEDS: BICTEGRAV/EMTRICIT/TENOFOV (BIKTARVY) 50-200-25 MG TABLET PO SCH (07:47)
[2021-06-11] MEDS: ASPIRIN 81 MG CHEWABLE TABLETS PO SCH (10:09)
[2021-06-11] MEDS: POTASSIUM CHLORIDE TABS 20 MEQ TABLET.ER (FP) PO SCH (10:09)
[2021-06-11] MEDS: guaiFENesin 600 MG TABLET.ER (FP) PO SCH ×2 (10:09→21:28)
[2021-06-11] MEDS: PRENATAL VITAMINS W/ FOLIC ACID TABLET (FP) PO SCH (10:09)
[2021-06-11] MEDS: BUDESONIDE/FORMETEROL FUMARATE 160/4.5 mcg INHALER IH SCH ×2 (10:10→21:29)
[2021-06-11] MEDS: traZODone HCL 100 MG TABLET (FP) PO SCH (21:28)
[2021-06-11] MEDS: THIAMINE HCL 100 MG TABLET (FP) PO SCH (21:28)
[2021-06-11] MEDS: QUEtiapine FUMARATE 100 MG TABLET (FP) PO SCH (21:28)
[2021-06-12] MEDS: metFORMIN HCL 500 MG TABLET (FP) PO SCH ×2 (06:23→16:52)
[2021-06-12] MEDS: BICTEGRAV/EMTRICIT/TENOFOV (BIKTARVY) 50-200-25 MG TABLET PO SCH (07:36)
[2021-06-12] MEDS: PRENATAL VITAMINS W/ FOLIC ACID TABLET (FP) PO SCH (09:53)
[2021-06-12] MEDS: BUDESONIDE/FORMETEROL FUMARATE 160/4.5 mcg INHALER IH SCH ×2 (09:53→23:53)
[2021-06-12] MEDS: ASPIRIN 81 MG CHEWABLE TABLETS PO SCH (09:54)
[2021-06-12] MEDS: guaiFENesin 600 MG TABLET.ER (FP) PO SCH ×2 (09:54→23:53)
[2021-06-12 10:29] LABS: CALCIUM 9.4 mg/dL (8.5-10.1)
[2021-06-12 10:30] LABS: ALBUMIN 2.9 g/dl (3.4-5.0); BLOOD UREA NITROGEN 8.5 mg/dL (7-18)
[2021-06-12 10:33] LABS: CREATININE 0.6 mg/dL (0.55-1.3)
[2021-06-12 10:34] LABS: BILIRUBIN,TOTAL 0.2 mg/dL (0.2-1); TOT PROT 7.7 g/dl (6.4-8.2)
[2021-06-12] MEDS: LISINOPRIL 5 MG TABLET PO SCH (13:32)
[2021-06-12] MEDS ORDERED: PT OWN MED DRAWER 7, Y5N ONE (19:32)
[2021-06-12] MEDS: traZODone HCL 100 MG TABLET (FP) PO SCH (23:52)
[2021-06-12] MEDS: QUEtiapine FUMARATE 100 MG TABLET (FP) PO SCH (23:53)
[2021-06-12] MEDS: THIAMINE HCL 100 MG TABLET (FP) PO SCH (23:54)
[2021-06-13] MEDS: metFORMIN HCL 500 MG TABLET (FP) PO SCH ×2 (06:28→16:26)
[2021-06-13] MEDS: BICTEGRAV/EMTRICIT/TENOFOV (BIKTARVY) 50-200-25 MG TABLET PO SCH (07:11)
[2021-06-13] MEDS: PRENATAL VITAMINS W/ FOLIC ACID TABLET (FP) PO SCH (09:59)
[2021-06-13] MEDS: BUDESONIDE/FORMETEROL FUMARATE 160/4.5 mcg INHALER IH SCH ×2 (09:59→21:22)
[2021-06-13] MEDS: LISINOPRIL 5 MG TABLET PO SCH (09:59)
[2021-06-13] MEDS: ASPIRIN 81 MG CHEWABLE TABLETS PO SCH (09:59)
[2021-06-13] MEDS: guaiFENesin 600 MG TABLET.ER (FP) PO SCH ×2 (10:54→21:22)
[2021-06-13] MEDS ORDERED: LISINOPRIL 5 MG TABLET PO ONE (13:29)
[2021-06-13] MEDS: THIAMINE HCL 100 MG TABLET (FP) PO SCH (21:22)
[2021-06-13] MEDS: QUEtiapine FUMARATE 100 MG TABLET (FP) PO SCH (21:22)
[2021-06-13] MEDS: traZODone HCL 100 MG TABLET (FP) PO SCH (21:22)
[2021-06-14] MEDS: metFORMIN HCL 500 MG TABLET (FP) PO SCH ×2 (06:29→17:05)
[2021-06-14] MEDS: BICTEGRAV/EMTRICIT/TENOFOV (BIKTARVY) 50-200-25 MG TABLET PO SCH (07:34)
[2021-06-14] MEDS: ASPIRIN 81 MG CHEWABLE TABLETS PO SCH (10:01)
[2021-06-14] MEDS: PRENATAL VITAMINS W/ FOLIC ACID TABLET (FP) PO SCH (10:01)
[2021-06-14] MEDS: guaiFENesin 600 MG TABLET.ER (FP) PO SCH ×2 (10:01→21:23)
[2021-06-14] MEDS: LISINOPRIL 5 MG TABLET PO SCH (10:02)
[2021-06-14] MEDS: BUDESONIDE/FORMETEROL FUMARATE 160/4.5 mcg INHALER IH SCH ×2 (10:02→21:23)
[2021-06-14] MEDS: traZODone HCL 100 MG TABLET (FP) PO SCH (21:23)
[2021-06-14] MEDS: QUEtiapine FUMARATE 100 MG TABLET (FP) PO SCH (21:23)
[2021-06-14] MEDS: THIAMINE HCL 100 MG TABLET (FP) PO SCH (21:23)
[2021-06-15] MEDS: metFORMIN HCL 500 MG TABLET (FP) PO SCH ×2 (07:05→16:55)
[2021-06-15] MEDS: BICTEGRAV/EMTRICIT/TENOFOV (BIKTARVY) 50-200-25 MG TABLET PO SCH (07:06)
[2021-06-15] MEDS: BUDESONIDE/FORMETEROL FUMARATE 160/4.5 mcg INHALER IH SCH ×2 (10:12→21:13)
[2021-06-15] MEDS: PRENATAL VITAMINS W/ FOLIC ACID TABLET (FP) PO SCH (10:12)
[2021-06-15] MEDS: ASPIRIN 81 MG CHEWABLE TABLETS PO SCH (10:12)
[2021-06-15] MEDS: LISINOPRIL 5 MG TABLET PO SCH (10:12)
[2021-06-15] MEDS: guaiFENesin 600 MG TABLET.ER (FP) PO SCH ×2 (10:13→21:13)
[2021-06-15 16:01] LABS: EPI CELLS >36 /uL (0-25.1); HYALINE CASTS 0 /uL (0-3.1); PH,URINE 7.5 (5.0-8.0); URINE APPEARANCE CLEAR; URINE BACTERIA 1205 /uL (0-1359); URINE BILIRUBIN NEGATIVE (NEGATIVE); URINE COLOR YELLOW; URINE GLUCOSE (UA) NEGATIVE (NEGATIVE); URINE KETONE NEGATIVE (NEGATIVE); URINE LEUK ESTERASE 2+ (NEGATIVE); URINE NITRITE NEGATIVE (NEGATIVE); URINE PROTEIN NEGATIVE (NEGATIVE); URINE RBC 9 /uL (0-23.9); URINE UROBILINOGEN 0.2 mg/dL (0.2-1.0); URINE WBC 65 /uL (0-25.8)
[2021-06-15] MEDS: traZODone HCL 100 MG TABLET (FP) PO SCH (21:13)
[2021-06-15] MEDS: THIAMINE HCL 100 MG TABLET (FP) PO SCH (21:13)
[2021-06-15] MEDS: QUEtiapine FUMARATE 100 MG TABLET (FP) PO SCH (21:13)
[2021-06-16] MEDS: metFORMIN HCL 500 MG TABLET (FP) PO SCH ×2 (06:28→17:01)
[2021-06-16] MEDS: ACETAMINOPHEN 325 MG TABLET (FP) PO PRN ×2 (06:30→10:23)
[2021-06-16] MEDS: BICTEGRAV/EMTRICIT/TENOFOV (BIKTARVY) 50-200-25 MG TABLET PO SCH (07:15)
[2021-06-16] MEDS: PRENATAL VITAMINS W/ FOLIC ACID TABLET (FP) PO SCH (10:20)
[2021-06-16] MEDS: LISINOPRIL 5 MG TABLET PO SCH (10:20)
[2021-06-16] MEDS: BUDESONIDE/FORMETEROL FUMARATE 160/4.5 mcg INHALER IH SCH ×2 (10:21→21:54)
[2021-06-16] MEDS: ASPIRIN 81 MG CHEWABLE TABLETS PO SCH (10:21)
[2021-06-16] MEDS: guaiFENesin 600 MG TABLET.ER (FP) PO SCH ×2 (10:22→21:55)
[2021-06-16] MEDS: DOXYCYCLINE HYCLATE 100 MG TABLET PO SCH ×2 (11:53→17:02)
[2021-06-16] MEDS: QUEtiapine FUMARATE 100 MG TABLET (FP) PO SCH (21:55)
[2021-06-16] MEDS: traZODone HCL 100 MG TABLET (FP) PO SCH (21:55)
[2021-06-16] MEDS: THIAMINE HCL 100 MG TABLET (FP) PO SCH (21:55)
[2021-06-17] MEDS: BICTEGRAV/EMTRICIT/TENOFOV (BIKTARVY) 50-200-25 MG TABLET PO SCH (07:12)
[2021-06-17] MEDS: metFORMIN HCL 500 MG TABLET (FP) PO SCH ×2 (07:13→16:41)
[2021-06-17] MEDS: ASPIRIN 81 MG CHEWABLE TABLETS PO SCH (10:39)
[2021-06-17] MEDS: LISINOPRIL 5 MG TABLET PO SCH (10:39)
[2021-06-17] MEDS: PRENATAL VITAMINS W/ FOLIC ACID TABLET (FP) PO SCH (10:39)
[2021-06-17] MEDS: BUDESONIDE/FORMETEROL FUMARATE 160/4.5 mcg INHALER IH SCH ×2 (10:40→22:15)
[2021-06-17] MEDS: DOXYCYCLINE HYCLATE 100 MG TABLET PO SCH ×2 (10:41→19:02)
[2021-06-17] MEDS: guaiFENesin 600 MG TABLET.ER (FP) PO SCH ×2 (10:41→22:15)
[2021-06-17] MEDS ORDERED: cloNIDine HCL 0.1 MG TABLET PO ONE (16:08)
[2021-06-17] MEDS: ACETAMINOPHEN 325 MG TABLET (FP) PO PRN (19:06)
[2021-06-17] MEDS: QUEtiapine FUMARATE 100 MG TABLET (FP) PO SCH (22:15)
[2021-06-17] MEDS: traZODone HCL 100 MG TABLET (FP) PO SCH (22:15)
[2021-06-17] MEDS: THIAMINE HCL 100 MG TABLET (FP) PO SCH (22:16)
[2021-06-18] MEDS: metFORMIN HCL 500 MG TABLET (FP) PO SCH ×2 (07:19→17:26)
[2021-06-18] MEDS: BICTEGRAV/EMTRICIT/TENOFOV (BIKTARVY) 50-200-25 MG TABLET PO SCH (07:20)
[2021-06-18] MEDS: PRENATAL VITAMINS W/ FOLIC ACID TABLET (FP) PO SCH (10:37)
[2021-06-18] MEDS: BUDESONIDE/FORMETEROL FUMARATE 160/4.5 mcg INHALER IH SCH ×2 (10:37→22:11)
[2021-06-18] MEDS: ASPIRIN 81 MG CHEWABLE TABLETS PO SCH (10:37)
[2021-06-18] MEDS: LISINOPRIL 5 MG TABLET PO SCH (10:38)
[2021-06-18] MEDS: DOXYCYCLINE HYCLATE 100 MG TABLET PO SCH ×2 (10:39→18:19)
[2021-06-18] MEDS: guaiFENesin 600 MG TABLET.ER (FP) PO SCH ×2 (10:39→22:09)
[2021-06-18] MEDS: THIAMINE HCL 100 MG TABLET (FP) PO SCH (22:09)
[2021-06-18] MEDS: QUEtiapine FUMARATE 100 MG TABLET (FP) PO SCH (22:09)
[2021-06-18] MEDS: traZODone HCL 100 MG TABLET (FP) PO SCH (22:09)
[2021-06-18] MEDS: hydrOXYzine PAMOATE 25 MG CAPSULE (FP) PO PRN (22:23)
[2021-06-18] MEDS ORDERED: INSULIN (NOVOLOG) ASPART 100 UNITS/ML 10ML VIAL ONE (22:55)
[2021-06-19] MEDS: metFORMIN HCL 500 MG TABLET (FP) PO SCH ×2 (08:08→17:10)
[2021-06-19] MEDS: BICTEGRAV/EMTRICIT/TENOFOV (BIKTARVY) 50-200-25 MG TABLET PO SCH (08:08)
[2021-06-19] MEDS: PRENATAL VITAMINS W/ FOLIC ACID TABLET (FP) PO SCH (10:36)
[2021-06-19] MEDS: guaiFENesin 600 MG TABLET.ER (FP) PO SCH ×2 (10:37→23:20)
[2021-06-19] MEDS: ASPIRIN 81 MG CHEWABLE TABLETS PO SCH (10:37)
[2021-06-19] MEDS: BUDESONIDE/FORMETEROL FUMARATE 160/4.5 mcg INHALER IH SCH ×2 (10:37→23:20)
[2021-06-19] MEDS: LISINOPRIL 5 MG TABLET PO SCH (10:37)
[2021-06-19] MEDS: DOXYCYCLINE HYCLATE 100 MG TABLET PO SCH ×2 (10:39→17:11)
[2021-06-19] MEDS: THIAMINE HCL 100 MG TABLET (FP) PO SCH (21:33)
[2021-06-19] MEDS: QUEtiapine FUMARATE 100 MG TABLET (FP) PO SCH (21:33)
[2021-06-19] MEDS: traZODone HCL 100 MG TABLET (FP) PO SCH (21:33)
[2021-06-19] MEDS: hydrOXYzine PAMOATE 25 MG CAPSULE (FP) PO PRN (21:33)
[2021-06-20] MEDS: BICTEGRAV/EMTRICIT/TENOFOV (BIKTARVY) 50-200-25 MG TABLET PO SCH (07:13)
[2021-06-20] MEDS: metFORMIN HCL 500 MG TABLET (FP) PO SCH ×2 (07:13→16:38)
[2021-06-20] MEDS: PRENATAL VITAMINS W/ FOLIC ACID TABLET (FP) PO SCH (10:31)
[2021-06-20] MEDS: ASPIRIN 81 MG CHEWABLE TABLETS PO SCH (10:31)
[2021-06-20] MEDS: BUDESONIDE/FORMETEROL FUMARATE 160/4.5 mcg INHALER IH SCH ×2 (10:32→22:34)
[2021-06-20] MEDS: guaiFENesin 600 MG TABLET.ER (FP) PO SCH ×2 (10:32→22:33)
[2021-06-20] MEDS: LISINOPRIL 5 MG TABLET PO SCH (10:32)
[2021-06-20] MEDS: DOXYCYCLINE HYCLATE 100 MG TABLET PO SCH ×2 (10:33→17:41)
[2021-06-20] MEDS: QUEtiapine FUMARATE 100 MG TABLET (FP) PO SCH (22:33)
[2021-06-20] MEDS: traZODone HCL 100 MG TABLET (FP) PO SCH (22:33)
[2021-06-20] MEDS: THIAMINE HCL 100 MG TABLET (FP) PO SCH (22:34)
[2021-06-21] MEDS: metFORMIN HCL 500 MG TABLET (FP) PO SCH ×2 (06:53→16:53)
[2021-06-21 07:25] VITALS: TEMP 97.7
[2021-06-21] MEDS: BICTEGRAV/EMTRICIT/TENOFOV (BIKTARVY) 50-200-25 MG TABLET PO SCH (07:58)
[2021-06-21] MEDS: PRENATAL VITAMINS W/ FOLIC ACID TABLET (FP) PO SCH (10:28)
[2021-06-21] MEDS: guaiFENesin 600 MG TABLET.ER (FP) PO SCH ×2 (10:29→21:32)
[2021-06-21] MEDS: LISINOPRIL 5 MG TABLET PO SCH (10:29)
[2021-06-21] MEDS: BUDESONIDE/FORMETEROL FUMARATE 160/4.5 mcg INHALER IH SCH ×2 (10:29→21:31)
[2021-06-21] MEDS: ASPIRIN 81 MG CHEWABLE TABLETS PO SCH (10:29)
[2021-06-21] MEDS: DOXYCYCLINE HYCLATE 100 MG TABLET PO SCH ×2 (10:30→18:30)
[2021-06-21 16:53] VITALS: BP 155/99; PULSE 86
[2021-06-21] MEDS: THIAMINE HCL 100 MG TABLET (FP) PO SCH (21:31)
[2021-06-21] MEDS: traZODone HCL 100 MG TABLET (FP) PO SCH (21:31)
[2021-06-21] MEDS: QUEtiapine FUMARATE 100 MG TABLET (FP) PO SCH (21:31)
[2021-06-22] MEDS: BICTEGRAV/EMTRICIT/TENOFOV (BIKTARVY) 50-200-25 MG TABLET PO SCH (07:50)
[2021-06-22] MEDS: metFORMIN HCL 500 MG TABLET (FP) PO SCH (07:50)
[2021-06-22] MEDS: PRENATAL VITAMINS W/ FOLIC ACID TABLET (FP) PO SCH (10:01)
[2021-06-22] MEDS: DOXYCYCLINE HYCLATE 100 MG TABLET PO SCH (10:01)
[2021-06-22] MEDS: ASPIRIN 81 MG CHEWABLE TABLETS PO SCH (10:01)
[2021-06-22] MEDS: guaiFENesin 600 MG TABLET.ER (FP) PO SCH (10:01)
[2021-06-22] MEDS: LISINOPRIL 5 MG TABLET PO SCH (10:01)
[2021-06-22] MEDS: BUDESONIDE/FORMETEROL FUMARATE 160/4.5 mcg INHALER IH SCH (10:02)
== END 2021-06-22 10:15 | disposition home or self-care (01) | DRG 772 ==
LOC: YASAS 11:47 → Y5N 17:33
PROVIDERS: ADMIT Allergy & Immunology; ATTEND Allergy & Immunology
PROC: HZ42ZZZ Group Counseling for Substance Abuse Treatment, Cognitive-Behavioral (ICD-10-PCS; principal; 2021-06-08)
DX: F10.20 Alcohol dependence, uncomplicated (principal); F14.20 Cocaine dependence, uncomplicated; F12.20 Cannabis dependence, uncomplicated; F17.210 Nicotine dependence, cigarettes, uncomplicated; F20.9 Schizophrenia, unspecified; Z21 Asymptomatic human immunodeficiency virus [HIV] infection status; E87.6 Hypokalemia; E11.42 Type 2 diabetes mellitus with diabetic polyneuropathy; I10 Essential (primary) hypertension; J45.909 Unspecified asthma, uncomplicated; J06.9 Acute upper respiratory infection, unspecified; N39.0 Urinary tract infection, site not specified; E66.01 Morbid (severe) obesity due to excess calories; Z68.43 Body mass index [BMI] 50.0-59.9, adult; Z86.11 Personal history of tuberculosis; Z86.19 Personal history of other infectious and parasitic diseases; Z79.84 Long term (current) use of oral hypoglycemic drugs
CPT/HCPCS: 36415; 80053; 81003; 81025; 82962; 85027; 86593; 86780; 90686; 90732; C9803; G0008; G0009; J0735; U0003; U0005

== ENCOUNTER 2021-09-29 14:14 | Inpatient (IN) | payer OTHER ==
[2021-09-29] MEDS ORDERED: BENZOCAINE/MENTHOL (CHLORASEPTIC ) LOZENGE MM PRN (16:26)
[2021-09-29] MEDS ORDERED: chlordiazePOXIDE HCL 25 MG CAPSULE PO PRN (16:26)
[2021-09-29] MEDS ORDERED: IBUPROFEN 400 MG TABLET (FP) PO PRN (16:26)
[2021-09-29] MEDS ORDERED: ACETAMINOPHEN 325 MG TABLET (FP) PO PRN ×2 (16:26)
[2021-09-29] MEDS ORDERED: ONDANSETRON *ODT* 4 MG TABLET SL PRN (16:26)
[2021-09-29] MEDS ORDERED: MAGNESIUM HYDROX 2400MG/30ML ORAL SUSPENSION 30 ML CUP PO PRN (16:26)
[2021-09-29] MEDS ORDERED: LOPERAMIDE HCL 2 MG CAPSULE PO PRN (16:26)
[2021-09-29] MEDS ORDERED: NICOTINE 10 MG CARTRIDGE (INHALER) IH PRN (16:26)
[2021-09-29] MEDS ORDERED: MAGNESIUM CITRATE 300 ML BOTTLE PO PRN (16:26)
[2021-09-29] MEDS ORDERED: DICYCLOMINE HCL 10 MG CAPSULE PO PRN (16:26)
[2021-09-29] MEDS ORDERED: MAG HYDROX/AL HYDROX/SIMETH 30 ML UNIT-DOSE CUP PO PRN (16:26)
[2021-09-29] MEDS ORDERED: BISMUTH SUBSALICYLATE 524 MG/30 ML PO PRN (16:26)
[2021-09-29] MEDS ORDERED: ALBUTEROL SO4 HFA INHALER IH PRN (16:29)
[2021-09-29] MEDS: chlordiazePOXIDE HCL 25 MG CAPSULE PO SCH ×2 (19:54→23:25)
[2021-09-29] MEDS: hydrOXYzine PAMOATE 25 MG CAPSULE (FP) PO SCH ×2 (19:54→23:25)
[2021-09-29] MEDS: PRENATAL VITAMINS W/ FOLIC ACID TABLET (FP) PO SCH (19:54)
[2021-09-29] MEDS: traZODone HCL 100 MG TABLET (FP) PO SCH (23:25)
[2021-09-29] MEDS: BUDESONIDE/FORMETEROL FUMARATE 160/4.5 mcg INHALER IH SCH (23:25)
[2021-09-29] MEDS: THIAMINE HCL 100 MG TABLET (FP) PO SCH (23:25)
[2021-09-29] MEDS: MELATONIN 5 MG TABLETS PO SCH (23:25)
[2021-09-30] MEDS: hydrOXYzine PAMOATE 25 MG CAPSULE (FP) PO SCH ×3 (06:01→13:17)
[2021-09-30] MEDS: chlordiazePOXIDE HCL 25 MG CAPSULE PO SCH ×4 (06:02→22:26)
[2021-09-30] MEDS: metFORMIN HCL 500 MG TABLET (FP) PO SCH ×2 (06:02→17:43)
[2021-09-30] MEDS: BICTEGRAV/EMTRICIT/TENOFOV (BIKTARVY) 50-200-25 MG TABLET PO SCH (07:58)
[2021-09-30] MEDS: LISINOPRIL 10 MG TABLET PO SCH (10:23)
[2021-09-30] MEDS: ASPIRIN 81 MG CHEWABLE TABLETS PO SCH (10:23)
[2021-09-30] MEDS: PRENATAL VITAMINS W/ FOLIC ACID TABLET (FP) PO SCH (10:23)
[2021-09-30] MEDS: BUDESONIDE/FORMETEROL FUMARATE 160/4.5 mcg INHALER IH SCH ×2 (10:24→22:28)
[2021-09-30 12:33] LABS: HEMATOCRIT 36.2 % (32.4-45.2); HEMOGLOBIN 11.9 GM/dL (10.7-15.3); MCH 28.2 pg (25.7-33.7); MCHC 32.9 g/dl (32.0-36.0); MEAN CELL VOLUME 85.9 fl (80-96); PLATELET COUNT 333 10^3/uL (134-434); RBC 4.21 M/mm3 (3.60-5.2); RDW 18.4 % (11.6-15.6); WHITE BLOOD COUNT 7.1 K/mm3 (4.0-10.0)
[2021-09-30 12:39] LABS: ALBUMIN 3.4 g/dl (3.4-5.0); CALCIUM 9.2 mg/dL (8.5-10.1)
[2021-09-30 12:40] LABS: BLOOD UREA NITROGEN 15.9 mg/dL (7-18)
[2021-09-30 12:42] LABS: CREATININE 0.7 mg/dL (0.55-1.3)
[2021-09-30 12:44] LABS: BILIRUBIN,TOTAL 0.3 mg/dL (0.2-1); TOT PROT 7.6 g/dl (6.4-8.2)
[2021-09-30] MEDS ORDERED: NICOTINE POLACRILEX 4 MG GUM BUC PRN (14:48)
[2021-09-30] MEDS: MINERAL OIL/PETROLAT/WATER TOPICAL CREAM 113 GM JAR TP SCH ×2 (15:33→22:27)
[2021-09-30] MEDS: AMMONIUM LACTATE 12% LOTION 225 GM BOTTLE TP SCH ×2 (15:33→22:27)
[2021-09-30] MEDS: hydrOXYzine PAMOATE 25 MG CAPSULE (FP) PO PRN (22:25)
[2021-09-30] MEDS: MELATONIN 5 MG TABLETS PO SCH (22:25)
[2021-09-30] MEDS: traZODone HCL 100 MG TABLET (FP) PO SCH (22:25)
[2021-09-30] MEDS: METHOCARBAMOL 500 MG TABLET PO PRN (22:25)
[2021-09-30] MEDS: THIAMINE HCL 100 MG TABLET (FP) PO SCH (22:26)
[2021-10-01] MEDS: metFORMIN HCL 500 MG TABLET (FP) PO SCH ×2 (06:15→18:22)
[2021-10-01] MEDS: chlordiazePOXIDE HCL 25 MG CAPSULE PO SCH ×4 (06:16→22:31)
[2021-10-01] MEDS: AMMONIUM LACTATE 12% LOTION 225 GM BOTTLE TP SCH ×2 (10:42→22:42)
[2021-10-01] MEDS: ASPIRIN 81 MG CHEWABLE TABLETS PO SCH (10:42)
[2021-10-01] MEDS: PRENATAL VITAMINS W/ FOLIC ACID TABLET (FP) PO SCH (10:42)
[2021-10-01] MEDS: MINERAL OIL/PETROLAT/WATER TOPICAL CREAM 113 GM JAR TP SCH ×2 (10:42→22:41)
[2021-10-01] MEDS: BUDESONIDE/FORMETEROL FUMARATE 160/4.5 mcg INHALER IH SCH ×2 (10:43→22:43)
[2021-10-01] MEDS: BICTEGRAV/EMTRICIT/TENOFOV (BIKTARVY) 50-200-25 MG TABLET PO SCH (10:43)
[2021-10-01] MEDS: LISINOPRIL 10 MG TABLET PO SCH (10:43)
[2021-10-01] MEDS: hydrOXYzine PAMOATE 25 MG CAPSULE (FP) PO PRN ×2 (18:22→22:31)
[2021-10-01] MEDS: MELATONIN 5 MG TABLETS PO SCH (22:30)
[2021-10-01] MEDS: traZODone HCL 100 MG TABLET (FP) PO SCH (22:31)
[2021-10-01] MEDS: THIAMINE HCL 100 MG TABLET (FP) PO SCH (22:31)
[2021-10-02] MEDS ORDERED: chlordiazePOXIDE HCL 10 MG CAPSULE PO PRN
[2021-10-02] MEDS: chlordiazePOXIDE HCL 10 MG CAPSULE PO SCH ×4 (06:12→23:10)
[2021-10-02] MEDS: metFORMIN HCL 500 MG TABLET (FP) PO SCH ×2 (06:12→18:31)
[2021-10-02] MEDS ORDERED: sitaGLIPtin PHOSPHATE 50 MG TABLET PO SCH (07:00)
[2021-10-02] MEDS: BICTEGRAV/EMTRICIT/TENOFOV (BIKTARVY) 50-200-25 MG TABLET PO SCH (08:12)
[2021-10-02] MEDS: PRENATAL VITAMINS W/ FOLIC ACID TABLET (FP) PO SCH (10:27)
[2021-10-02] MEDS: ASPIRIN 81 MG CHEWABLE TABLETS PO SCH (10:27)
[2021-10-02] MEDS: BUDESONIDE/FORMETEROL FUMARATE 160/4.5 mcg INHALER IH SCH ×2 (10:27→23:11)
[2021-10-02] MEDS: hydrOXYzine PAMOATE 25 MG CAPSULE (FP) PO PRN ×2 (10:28→18:31)
[2021-10-02] MEDS: LISINOPRIL 10 MG TABLET PO SCH (10:29)
[2021-10-02] MEDS: MINERAL OIL/PETROLAT/WATER TOPICAL CREAM 113 GM JAR TP SCH ×2 (11:11→22:09)
[2021-10-02] MEDS: AMMONIUM LACTATE 12% LOTION 225 GM BOTTLE TP SCH ×2 (11:11→22:09)
[2021-10-02] MEDS: traZODone HCL 100 MG TABLET (FP) PO SCH (22:08)
[2021-10-02] MEDS: MELATONIN 5 MG TABLETS PO SCH (23:11)
[2021-10-02] MEDS: THIAMINE HCL 100 MG TABLET (FP) PO SCH (23:11)
[2021-10-03] MEDS: chlordiazePOXIDE HCL 10 MG CAPSULE PO SCH ×2 (05:41→17:59)
[2021-10-03] MEDS: metFORMIN HCL 500 MG TABLET (FP) PO SCH ×2 (06:49→17:59)
[2021-10-03] MEDS: hydrOXYzine PAMOATE 25 MG CAPSULE (FP) PO PRN ×2 (06:49→10:20)
[2021-10-03] MEDS: ASPIRIN 81 MG CHEWABLE TABLETS PO SCH (10:20)
[2021-10-03] MEDS: MINERAL OIL/PETROLAT/WATER TOPICAL CREAM 113 GM JAR TP SCH ×2 (10:20→22:15)
[2021-10-03] MEDS: LISINOPRIL 10 MG TABLET PO SCH (10:20)
[2021-10-03] MEDS: BUDESONIDE/FORMETEROL FUMARATE 160/4.5 mcg INHALER IH SCH ×2 (10:20→22:15)
[2021-10-03] MEDS: AMMONIUM LACTATE 12% LOTION 225 GM BOTTLE TP SCH ×2 (10:20→22:15)
[2021-10-03] MEDS: METHOCARBAMOL 500 MG TABLET PO PRN (10:21)
[2021-10-03] MEDS: BICTEGRAV/EMTRICIT/TENOFOV (BIKTARVY) 50-200-25 MG TABLET PO SCH (10:24)
[2021-10-03] MEDS: PRENATAL VITAMINS W/ FOLIC ACID TABLET (FP) PO SCH (10:26)
[2021-10-03] MEDS: traZODone HCL 100 MG TABLET (FP) PO SCH (22:14)
[2021-10-03] MEDS: MELATONIN 5 MG TABLETS PO SCH (22:14)
[2021-10-03] MEDS: THIAMINE HCL 100 MG TABLET (FP) PO SCH (22:14)
[2021-10-04] MEDS ORDERED: chlordiazePOXIDE HCL 10 MG CAPSULE PO ONE (05:00)
[2021-10-04] MEDS: metFORMIN HCL 500 MG TABLET (FP) PO SCH (06:19)
[2021-10-04 09:47] VITALS: BP 156/86; PULSE 99; TEMP 96.9
[2021-10-04] MEDS: PRENATAL VITAMINS W/ FOLIC ACID TABLET (FP) PO SCH (09:47)
[2021-10-04] MEDS: LISINOPRIL 10 MG TABLET PO SCH (09:47)
[2021-10-04] MEDS: ASPIRIN 81 MG CHEWABLE TABLETS PO SCH (09:47)
[2021-10-04] MEDS: BICTEGRAV/EMTRICIT/TENOFOV (BIKTARVY) 50-200-25 MG TABLET PO SCH (09:50)
[2021-10-04] MEDS: MINERAL OIL/PETROLAT/WATER TOPICAL CREAM 113 GM JAR TP SCH (10:27)
[2021-10-04] MEDS: BUDESONIDE/FORMETEROL FUMARATE 160/4.5 mcg INHALER IH SCH (10:27)
[2021-10-04] MEDS: AMMONIUM LACTATE 12% LOTION 225 GM BOTTLE TP SCH (10:27)
== END 2021-10-04 10:46 | disposition home or self-care (01) | DRG 774 ==
LOC: YASAS 14:14 → EDBD 19:16 → Y6N 19:16
PROVIDERS: ADMIT Allergy & Immunology; ATTEND Allergy & Immunology
PROC: HZ2ZZZZ Detoxification Services for Substance Abuse Treatment (ICD-10-PCS; principal; 2021-09-29)
DX: F10.230 Alcohol dependence with withdrawal, uncomplicated (principal); F14.20 Cocaine dependence, uncomplicated; F15.10 Other stimulant abuse, uncomplicated; F12.10 Cannabis abuse, uncomplicated; F17.210 Nicotine dependence, cigarettes, uncomplicated; F20.9 Schizophrenia, unspecified; G61.9 Inflammatory polyneuropathy, unspecified; Z21 Asymptomatic human immunodeficiency virus [HIV] infection status; I10 Essential (primary) hypertension; E11.9 Type 2 diabetes mellitus without complications; Z79.84 Long term (current) use of oral hypoglycemic drugs; E78.5 Hyperlipidemia, unspecified; E66.01 Morbid (severe) obesity due to excess calories; Z68.43 Body mass index [BMI] 50.0-59.9, adult; Z86.19 Personal history of other infectious and parasitic diseases
CPT/HCPCS: 36415; 71045-TC-FY; 80053; 82962; 85027; 86593; 86780; C9803-CS; U0003; U0005

== ENCOUNTER 2021-12-05 14:00 | Inpatient (IN) | payer OTHER ==
[2021-12-05 15:27] VITALS: BMI 53.3
[2021-12-05] MEDS ORDERED: MAGNESIUM HYDROX 2400MG/30ML ORAL SUSPENSION 30 ML CUP PO PRN (17:32)
[2021-12-05] MEDS ORDERED: IBUPROFEN 400 MG TABLET (FP) PO PRN (17:32)
[2021-12-05] MEDS ORDERED: BISMUTH SUBSALICYLATE 524 MG/30 ML PO PRN (17:32)
[2021-12-05] MEDS ORDERED: ONDANSETRON *ODT* 4 MG TABLET SL PRN (17:32)
[2021-12-05] MEDS ORDERED: MAG HYDROX/AL HYDROX/SIMETH 30 ML UNIT-DOSE CUP PO PRN (17:32)
[2021-12-05] MEDS ORDERED: IBUPROFEN 600 MG TABLET (FP) PO PRN (17:32)
[2021-12-05] MEDS ORDERED: BENZOCAINE/MENTHOL (CHLORASEPTIC ) LOZENGE MM PRN (17:32)
[2021-12-05] MEDS ORDERED: LOPERAMIDE HCL 2 MG CAPSULE PO PRN (17:32)
[2021-12-05] MEDS ORDERED: MAGNESIUM CITRATE 300 ML BOTTLE PO PRN (17:32)
[2021-12-05] MEDS ORDERED: chlordiazePOXIDE HCL 25 MG CAPSULE PO PRN (17:32)
[2021-12-05] MEDS ORDERED: ACETAMINOPHEN 325 MG TABLET (FP) PO PRN ×2 (17:32)
[2021-12-05] MEDS ORDERED: DICYCLOMINE HCL 10 MG CAPSULE PO PRN (17:32)
[2021-12-05] MEDS ORDERED: ALBUTEROL SO4 HFA INHALER IH PRN (19:06)
[2021-12-05] MEDS: hydrOXYzine PAMOATE 25 MG CAPSULE (FP) PO SCH ×2 (19:26→22:29)
[2021-12-05] MEDS: MELATONIN 5 MG TABLETS PO SCH (22:28)
[2021-12-05] MEDS: GABAPENTIN 400 MG CAPSULE PO SCH (22:29)
[2021-12-05] MEDS: METHOCARBAMOL 500 MG TABLET PO PRN (22:29)
[2021-12-05] MEDS: QUEtiapine FUMARATE 100 MG TABLET (FP) PO SCH (22:29)
[2021-12-05] MEDS: ATORVASTATIN CA 10 MG TABLET (FP) PO SCH (22:29)
[2021-12-05] MEDS: THIAMINE HCL 100 MG TABLET (FP) PO SCH (22:29)
[2021-12-05] MEDS: BUDESONIDE/FORMETEROL FUMARATE 160/4.5 mcg INHALER IH SCH (22:30)
[2021-12-05] MEDS: INSULIN SLIDING SCALE (NOVOLOG) 1 VIAL SQ SCH ×2 (22:30→23:01)
[2021-12-05] MEDS: traZODone HCL 50 MG TABLET (FP) PO SCH (22:31)
[2021-12-06] MEDS ORDERED: chlordiazePOXIDE HCL 25 MG CAPSULE PO SCH ×2 (05:00)
[2021-12-06] MEDS: hydrOXYzine PAMOATE 25 MG CAPSULE (FP) PO SCH ×5 (06:57→22:17)
[2021-12-06] MEDS: GABAPENTIN 400 MG CAPSULE PO SCH ×3 (06:57→22:17)
[2021-12-06] MEDS: INSULIN SLIDING SCALE (NOVOLOG) 1 VIAL SQ SCH ×5 (06:59→23:20)
[2021-12-06] MEDS ORDERED: diazePAM 5 MG TABLET PO PRN (09:46)
[2021-12-06] MEDS: MONTELUKAST NA 10 MG TABLET PO SCH (10:18)
[2021-12-06] MEDS: LISINOPRIL 10 MG TABLET PO SCH (10:18)
[2021-12-06] MEDS: PRENATAL VITAMINS W/ FOLIC ACID TABLET (FP) PO SCH (10:18)
[2021-12-06] MEDS: BICTEGRAV/EMTRICIT/TENOFOV (BIKTARVY) 50-200-25 MG TABLET PO SCH (10:18)
[2021-12-06] MEDS: BUDESONIDE/FORMETEROL FUMARATE 160/4.5 mcg INHALER IH SCH ×3 (10:19→23:20)
[2021-12-06] MEDS: NICOTINE 14 MG/24 HOURS TOPICAL PATCH TD SCH (10:34)
[2021-12-06] MEDS: diazePAM 5 MG TABLET PO SCH ×3 (11:24→22:17)
[2021-12-06 11:45] LABS: HEMATOCRIT 34.9 % (32.4-45.2); HEMOGLOBIN 11.5 GM/dL (10.7-15.3); MCH 27.4 pg (25.7-33.7); MCHC 32.9 g/dl (32.0-36.0); MEAN CELL VOLUME 83.4 fl (80-96); MEAN PLT VOLUME 7.4 fl (7.5-11.1); PLATELET COUNT 295 10^3/uL (134-434); RBC 4.19 M/mm3 (3.60-5.2); RDW 16.1 % (11.6-15.6); WHITE BLOOD COUNT 5.8 K/mm3 (4.0-10.0)
[2021-12-06 14:56] LABS: BLOOD UREA NITROGEN 13.9 mg/dL (7-18); CALCIUM 9.2 mg/dL (8.5-10.1)
[2021-12-06 15:00] LABS: CREATININE 0.8 mg/dL (0.55-1.3)
[2021-12-06 15:01] LABS: BILIRUBIN,TOTAL 0.4 mg/dL (0.2-1)
[2021-12-06] MEDS ORDERED: INSULIN (NOVOLOG) ASPART 100 UNITS/ML 10ML VIAL ONE ×2 (17:09→23:18)
[2021-12-06] MEDS: MELATONIN 5 MG TABLETS PO SCH (22:16)
[2021-12-06] MEDS: THIAMINE HCL 100 MG TABLET (FP) PO SCH (22:16)
[2021-12-06] MEDS: QUEtiapine FUMARATE 100 MG TABLET (FP) PO SCH (22:17)
[2021-12-06] MEDS: traZODone HCL 50 MG TABLET (FP) PO SCH (22:17)
[2021-12-06] MEDS: ATORVASTATIN CA 10 MG TABLET (FP) PO SCH (22:17)
[2021-12-07] MEDS ORDERED: chlordiazePOXIDE HCL 10 MG CAPSULE PO PRN
[2021-12-07] MEDS ORDERED: chlordiazePOXIDE HCL 10 MG CAPSULE PO SCH (05:00)
[2021-12-07] MEDS: GABAPENTIN 400 MG CAPSULE PO SCH ×3 (05:11→23:01)
[2021-12-07] MEDS: hydrOXYzine PAMOATE 25 MG CAPSULE (FP) PO SCH ×5 (05:12→23:01)
[2021-12-07] MEDS: diazePAM 5 MG TABLET PO SCH ×3 (05:12→23:02)
[2021-12-07] MEDS: INSULIN SLIDING SCALE (NOVOLOG) 1 VIAL SQ SCH ×4 (07:06→23:25)
[2021-12-07] MEDS: BUDESONIDE/FORMETEROL FUMARATE 160/4.5 mcg INHALER IH SCH ×2 (10:05→23:35)
[2021-12-07] MEDS: LISINOPRIL 10 MG TABLET PO SCH (10:06)
[2021-12-07] MEDS: BICTEGRAV/EMTRICIT/TENOFOV (BIKTARVY) 50-200-25 MG TABLET PO SCH (10:06)
[2021-12-07] MEDS: MONTELUKAST NA 10 MG TABLET PO SCH (10:06)
[2021-12-07] MEDS: PRENATAL VITAMINS W/ FOLIC ACID TABLET (FP) PO SCH (10:07)
[2021-12-07] MEDS: NICOTINE 14 MG/24 HOURS TOPICAL PATCH TD SCH (10:07)
[2021-12-07] MEDS ORDERED: BENZTROPINE MESYLATE 1 MG TABLET PO PRN (22:00)
[2021-12-07] MEDS: MELATONIN 5 MG TABLETS PO SCH (23:01)
[2021-12-07] MEDS: THIAMINE HCL 100 MG TABLET (FP) PO SCH (23:01)
[2021-12-07] MEDS: traZODone HCL 50 MG TABLET (FP) PO SCH (23:01)
[2021-12-07] MEDS: ATORVASTATIN CA 10 MG TABLET (FP) PO SCH (23:02)
[2021-12-07] MEDS: HALOPERIDOL 5 MG TABLET PO SCH (23:22)
[2021-12-08] MEDS ORDERED: chlordiazePOXIDE HCL 10 MG CAPSULE PO SCH (05:00)
[2021-12-08] MEDS: diazePAM 5 MG TABLET PO SCH ×2 (05:50→17:58)
[2021-12-08] MEDS: GABAPENTIN 400 MG CAPSULE PO SCH ×3 (05:50→22:45)
[2021-12-08] MEDS: hydrOXYzine PAMOATE 25 MG CAPSULE (FP) PO SCH ×5 (05:50→22:46)
[2021-12-08] MEDS: INSULIN SLIDING SCALE (NOVOLOG) 1 VIAL SQ SCH ×4 (07:03→22:46)
[2021-12-08] MEDS: BICTEGRAV/EMTRICIT/TENOFOV (BIKTARVY) 50-200-25 MG TABLET PO SCH (10:16)
[2021-12-08] MEDS: LISINOPRIL 10 MG TABLET PO SCH (10:16)
[2021-12-08] MEDS: METHOCARBAMOL 500 MG TABLET PO PRN (10:16)
[2021-12-08] MEDS: BUDESONIDE/FORMETEROL FUMARATE 160/4.5 mcg INHALER IH SCH ×2 (10:16→22:46)
[2021-12-08] MEDS: NICOTINE 14 MG/24 HOURS TOPICAL PATCH TD SCH (10:16)
[2021-12-08] MEDS: MONTELUKAST NA 10 MG TABLET PO SCH (10:16)
[2021-12-08] MEDS: PRENATAL VITAMINS W/ FOLIC ACID TABLET (FP) PO SCH (10:17)
[2021-12-08] MEDS ORDERED: INSULIN (NOVOLOG) ASPART 100 UNITS/ML 10ML VIAL ONE (17:06)
[2021-12-08] MEDS: THIAMINE HCL 100 MG TABLET (FP) PO SCH (22:45)
[2021-12-08] MEDS: MELATONIN 5 MG TABLETS PO SCH (22:45)
[2021-12-08] MEDS: ATORVASTATIN CA 10 MG TABLET (FP) PO SCH (22:46)
[2021-12-08] MEDS: traZODone HCL 50 MG TABLET (FP) PO SCH (22:46)
[2021-12-08] MEDS: HALOPERIDOL 5 MG TABLET PO SCH (23:19)
[2021-12-09] MEDS ORDERED: chlordiazePOXIDE HCL 10 MG CAPSULE PO ONE (05:00)
[2021-12-09] MEDS ORDERED: diazePAM 5 MG TABLET PO ONE (06:00)
[2021-12-09] MEDS: hydrOXYzine PAMOATE 25 MG CAPSULE (FP) PO SCH ×3 (06:32→13:42)
[2021-12-09] MEDS: GABAPENTIN 400 MG CAPSULE PO SCH ×2 (06:33→13:42)
[2021-12-09] MEDS: INSULIN SLIDING SCALE (NOVOLOG) 1 VIAL SQ SCH ×2 (08:14→12:08)
[2021-12-09] MEDS: PRENATAL VITAMINS W/ FOLIC ACID TABLET (FP) PO SCH (09:20)
[2021-12-09] MEDS: MONTELUKAST NA 10 MG TABLET PO SCH (09:20)
[2021-12-09] MEDS: BICTEGRAV/EMTRICIT/TENOFOV (BIKTARVY) 50-200-25 MG TABLET PO SCH (09:20)
[2021-12-09] MEDS: LISINOPRIL 10 MG TABLET PO SCH (09:20)
[2021-12-09] MEDS: NICOTINE 14 MG/24 HOURS TOPICAL PATCH TD SCH (09:22)
[2021-12-09] MEDS: BUDESONIDE/FORMETEROL FUMARATE 160/4.5 mcg INHALER IH SCH (09:22)
[2021-12-09 13:57] VITALS: BP 110/85; PULSE 101; TEMP 98.6
== END 2021-12-09 13:48 | disposition home or self-care (01) | DRG 774 ==
LOC: YASAS 14:00 → Y6N 18:12
PROVIDERS: ADMIT Allergy & Immunology; ATTEND Surgery
PROC: HZ2ZZZZ Detoxification Services for Substance Abuse Treatment (ICD-10-PCS; principal; 2021-12-05)
DX: F10.230 Alcohol dependence with withdrawal, uncomplicated (principal); F14.20 Cocaine dependence, uncomplicated; F15.10 Other stimulant abuse, uncomplicated; F17.210 Nicotine dependence, cigarettes, uncomplicated; F20.9 Schizophrenia, unspecified; Z21 Asymptomatic human immunodeficiency virus [HIV] infection status; G62.9 Polyneuropathy, unspecified; I10 Essential (primary) hypertension; E11.9 Type 2 diabetes mellitus without complications; Z79.84 Long term (current) use of oral hypoglycemic drugs; J45.909 Unspecified asthma, uncomplicated; E66.01 Morbid (severe) obesity due to excess calories; Z68.43 Body mass index [BMI] 50.0-59.9, adult
CPT/HCPCS: 36415; 80053; 81025; 82962; 85027; 86593; 86780; C9803-CS; U0003; U0005

== ENCOUNTER 2022-03-19 13:48 | Inpatient (IN) | payer OTHER ==
[2022-03-19 14:29] VITALS: BMI 49.9
[2022-03-19] MEDS ORDERED: MAGNESIUM HYDROX 2400MG/30ML ORAL SUSPENSION 30 ML CUP PO PRN (15:51)
[2022-03-19] MEDS ORDERED: ONDANSETRON *ODT* 4 MG TABLET SL PRN (15:51)
[2022-03-19] MEDS ORDERED: MAGNESIUM CITRATE 300 ML BOTTLE PO PRN (15:51)
[2022-03-19] MEDS ORDERED: ACETAMINOPHEN 325 MG TABLET (FP) PO PRN (15:51)
[2022-03-19] MEDS ORDERED: LOPERAMIDE HCL 2 MG CAPSULE PO PRN (15:51)
[2022-03-19] MEDS ORDERED: MAG HYDROX/AL HYDROX/SIMETH 30 ML UNIT-DOSE CUP PO PRN (15:51)
[2022-03-19] MEDS ORDERED: methaDONE HCL 10 MG TABLET (FOR DETOX USE ONLY) PO ONE ×2 (15:51→18:00)
[2022-03-19] MEDS ORDERED: BISMUTH SUBSALICYLATE 524 MG/30 ML PO PRN (15:51)
[2022-03-19] MEDS ORDERED: NICOTINE 10 MG CARTRIDGE (INHALER) IH PRN (15:51)
[2022-03-19] MEDS ORDERED: cloNIDine HCL 0.1 MG TABLET PO PRN (15:51)
[2022-03-19] MEDS ORDERED: NALOXONE HCL (KLOXXADO) 8 MG SPRAY NS PRN (15:51)
[2022-03-19] MEDS ORDERED: hydrOXYzine PAMOATE 25 MG CAPSULE (FP) PO PRN (15:51)
[2022-03-19] MEDS ORDERED: DICYCLOMINE HCL 10 MG CAPSULE PO PRN (15:51)
[2022-03-19] MEDS ORDERED: IBUPROFEN 400 MG TABLET (FP) PO PRN (15:51)
[2022-03-19] MEDS ORDERED: METHOCARBAMOL 500 MG TABLET PO PRN (15:51)
[2022-03-19] MEDS ORDERED: BENZOCAINE/MENTHOL (CHLORASEPTIC ) LOZENGE MM PRN (15:51)
[2022-03-19] MEDS ORDERED: IBUPROFEN 600 MG TABLET (FP) PO PRN (15:51)
[2022-03-19] MEDS ORDERED: BICTEGRAV/EMTRICIT/TENOFOV (BIKTARVY) 50-200-25 MG TABLET PO SCH (16:00)
[2022-03-19] MEDS: MONTELUKAST NA 10 MG TABLET PO SCH (17:45)
[2022-03-19] MEDS: LISINOPRIL 10 MG TABLET PO SCH (17:45)
[2022-03-19] MEDS: chlordiazePOXIDE HCL 25 MG CAPSULE PO SCH ×2 (17:50→22:09)
[2022-03-19] MEDS: PRENATAL VITAMINS W/ FOLIC ACID TABLET (FP) PO SCH (19:04)
[2022-03-19] MEDS: sitaGLIPtin PHOSPHATE 50 MG TABLET PO SCH (19:04)
[2022-03-19] MEDS: NICOTINE 14 MG/24 HOURS TOPICAL PATCH TD SCH (19:04)
[2022-03-19] MEDS: BICTEGRAV/EMTRICIT/TENOFOV (BIKTARVY) 50-200-25 MG TABLET PO SCH (19:22)
[2022-03-19] MEDS: THIAMINE HCL 100 MG TABLET (FP) PO SCH (22:09)
[2022-03-19] MEDS: MELATONIN 5 MG TABLETS PO SCH (22:09)
[2022-03-20] MEDS: sitaGLIPtin PHOSPHATE 50 MG TABLET PO SCH (06:04)
[2022-03-20] MEDS: chlordiazePOXIDE HCL 25 MG CAPSULE PO SCH ×4 (06:04→22:24)
[2022-03-20] MEDS: PRENATAL VITAMINS W/ FOLIC ACID TABLET (FP) PO SCH (10:13)
[2022-03-20] MEDS: LISINOPRIL 10 MG TABLET PO SCH (10:13)
[2022-03-20] MEDS: MONTELUKAST NA 10 MG TABLET PO SCH (10:13)
[2022-03-20] MEDS: NICOTINE 14 MG/24 HOURS TOPICAL PATCH TD SCH (10:13)
[2022-03-20] MEDS: BICTEGRAV/EMTRICIT/TENOFOV (BIKTARVY) 50-200-25 MG TABLET PO SCH (10:14)
[2022-03-20 15:26] LABS: HEMATOCRIT 34.6 % (32.4-45.2); HEMOGLOBIN 11.1 GM/dL (10.7-15.3); MCH 28.1 pg (25.7-33.7); MCHC 32.2 g/dl (32.0-36.0); MEAN CELL VOLUME 87.2 fl (80-96); MEAN PLT VOLUME 7.8 fl (7.5-11.1); PLATELET COUNT 322 10^3/uL (134-434); RBC 3.97 M/mm3 (3.60-5.2); RDW 17.5 % (11.6-15.6); WHITE BLOOD COUNT 7.8 K/mm3 (4.0-10.0)
[2022-03-20 15:53] LABS: EPI CELLS 34 /uL (0-25.1); HYALINE CASTS 0 /uL (0-3.1); URINE APPEARANCE CLEAR; URINE BACTERIA 431 /uL (0-1359); URINE BILIRUBIN NEGATIVE (NEGATIVE); URINE COLOR YELLOW; URINE GLUCOSE (UA) NEGATIVE (NEGATIVE); URINE KETONE NEGATIVE (NEGATIVE); URINE LEUK ESTERASE TRACE (NEGATIVE); URINE NITRITE NEGATIVE (NEGATIVE); URINE PROTEIN NEGATIVE (NEGATIVE); URINE RBC 10 /uL (0-23.9); URINE WBC 17 /uL (0-25.8)
[2022-03-20 17:52] LABS: ALBUMIN 2.9 g/dl (3.4-5.0); CALCIUM 8.7 mg/dL (8.5-10.1)
[2022-03-20 17:53] LABS: BLOOD UREA NITROGEN 13.6 mg/dL (7-18)
[2022-03-20 17:55] LABS: CREATININE 0.8 mg/dL (0.55-1.3)
[2022-03-20 17:56] LABS: BILIRUBIN,TOTAL 0.2 mg/dL (0.2-1); TOT PROT 7.1 g/dl (6.4-8.2)
[2022-03-20] MEDS: ACETAMINOPHEN 325 MG TABLET (FP) PO PRN (19:47)
[2022-03-20] MEDS ORDERED: ALBUTEROL SO4 HFA INHALER IH ONE (20:06)
[2022-03-20] MEDS ORDERED: ALBUTEROL SO4 HFA INHALER IH PRN (20:18)
[2022-03-20] MEDS: MICONAZOLE NITRATE 100 MG SUPP SUPP.VAG PV SCH (22:23)
[2022-03-20] MEDS: THIAMINE HCL 100 MG TABLET (FP) PO SCH (22:23)
[2022-03-20] MEDS: MELATONIN 5 MG TABLETS PO SCH (22:23)
[2022-03-21] MEDS: chlordiazePOXIDE HCL 25 MG CAPSULE PO SCH ×4 (06:56→22:18)
[2022-03-21] MEDS: sitaGLIPtin PHOSPHATE 50 MG TABLET PO SCH (06:57)
[2022-03-21] MEDS ORDERED: methaDONE HCL 10 MG TABLET (FOR DETOX USE ONLY) PO ONE (10:00)
[2022-03-21] MEDS: NICOTINE 14 MG/24 HOURS TOPICAL PATCH TD SCH (10:13)
[2022-03-21] MEDS: PRENATAL VITAMINS W/ FOLIC ACID TABLET (FP) PO SCH (10:13)
[2022-03-21] MEDS: LISINOPRIL 10 MG TABLET PO SCH (10:13)
[2022-03-21] MEDS: MONTELUKAST NA 10 MG TABLET PO SCH (10:13)
[2022-03-21] MEDS: BICTEGRAV/EMTRICIT/TENOFOV (BIKTARVY) 50-200-25 MG TABLET PO SCH (10:15)
[2022-03-21] MEDS: ACETAMINOPHEN 325 MG TABLET (FP) PO PRN (17:51)
[2022-03-21] MEDS: THIAMINE HCL 100 MG TABLET (FP) PO SCH (22:18)
[2022-03-21] MEDS: MELATONIN 5 MG TABLETS PO SCH (22:18)
[2022-03-21] MEDS: MICONAZOLE NITRATE 100 MG SUPP SUPP.VAG PV SCH (22:19)
[2022-03-22] MEDS: sitaGLIPtin PHOSPHATE 50 MG TABLET PO SCH (06:07)
[2022-03-22] MEDS: chlordiazePOXIDE HCL 10 MG CAPSULE PO SCH ×4 (06:07→22:18)
[2022-03-22] MEDS: LISINOPRIL 10 MG TABLET PO SCH (10:24)
[2022-03-22] MEDS: PRENATAL VITAMINS W/ FOLIC ACID TABLET (FP) PO SCH (10:24)
[2022-03-22] MEDS: MONTELUKAST NA 10 MG TABLET PO SCH (10:24)
[2022-03-22] MEDS: NICOTINE 14 MG/24 HOURS TOPICAL PATCH TD SCH (10:24)
[2022-03-22] MEDS: BICTEGRAV/EMTRICIT/TENOFOV (BIKTARVY) 50-200-25 MG TABLET PO SCH (10:24)
[2022-03-22] MEDS: ACETAMINOPHEN 325 MG TABLET (FP) PO PRN ×2 (10:25→22:18)
[2022-03-22] MEDS: MELATONIN 5 MG TABLETS PO SCH (22:18)
[2022-03-22] MEDS: THIAMINE HCL 100 MG TABLET (FP) PO SCH (22:18)
[2022-03-22] MEDS: MICONAZOLE NITRATE 100 MG SUPP SUPP.VAG PV SCH (22:19)
[2022-03-23] MEDS: chlordiazePOXIDE HCL 10 MG CAPSULE PO SCH ×2 (06:25→17:45)
[2022-03-23] MEDS: sitaGLIPtin PHOSPHATE 50 MG TABLET PO SCH (06:27)
[2022-03-23] MEDS: ACETAMINOPHEN 325 MG TABLET (FP) PO PRN (06:28)
[2022-03-23] MEDS ORDERED: methaDONE HCL 10 MG TABLET (FOR DETOX USE ONLY) PO ONE (10:00)
[2022-03-23] MEDS: BICTEGRAV/EMTRICIT/TENOFOV (BIKTARVY) 50-200-25 MG TABLET PO SCH (10:08)
[2022-03-23] MEDS: PRENATAL VITAMINS W/ FOLIC ACID TABLET (FP) PO SCH (10:08)
[2022-03-23] MEDS: LISINOPRIL 10 MG TABLET PO SCH (10:08)
[2022-03-23] MEDS: MONTELUKAST NA 10 MG TABLET PO SCH (10:08)
[2022-03-23] MEDS: NICOTINE 14 MG/24 HOURS TOPICAL PATCH TD SCH (10:09)
[2022-03-23] MEDS: MELATONIN 5 MG TABLETS PO SCH (22:30)
[2022-03-23] MEDS: THIAMINE HCL 100 MG TABLET (FP) PO SCH (22:30)
[2022-03-23] MEDS: MICONAZOLE NITRATE 100 MG SUPP SUPP.VAG PV SCH (22:31)
[2022-03-24] MEDS ORDERED: chlordiazePOXIDE HCL 10 MG CAPSULE PO ONE (05:00)
[2022-03-24] MEDS: sitaGLIPtin PHOSPHATE 50 MG TABLET PO SCH (06:03)
[2022-03-24 06:53] VITALS: RESP 20
[2022-03-24 09:02] VITALS: BP 127/58; PULSE 97; TEMP 98.8
== END 2022-03-24 09:25 | disposition home or self-care (01) | DRG 773 ==
LOC: YASAS 13:48 → Y3N 16:53
PROVIDERS: ADMIT Allergy & Immunology; ATTEND Surgery
PROC: HZ2ZZZZ Detoxification Services for Substance Abuse Treatment (ICD-10-PCS; principal; 2022-03-19)
DX: F11.23 Opioid dependence with withdrawal (principal); F10.230 Alcohol dependence with withdrawal, uncomplicated; F14.20 Cocaine dependence, uncomplicated; F12.20 Cannabis dependence, uncomplicated; F17.210 Nicotine dependence, cigarettes, uncomplicated; F20.9 Schizophrenia, unspecified; F41.8 Other specified anxiety disorders; F32.A Depression, unspecified; Z21 Asymptomatic human immunodeficiency virus [HIV] infection status; E78.5 Hyperlipidemia, unspecified; I10 Essential (primary) hypertension; J45.909 Unspecified asthma, uncomplicated; E11.9 Type 2 diabetes mellitus without complications; Z79.84 Long term (current) use of oral hypoglycemic drugs; B37.31 Acute candidiasis of vulva and vagina; Z86.19 Personal history of other infectious and parasitic diseases
CPT/HCPCS: 36415; 80053; 81003; 82962; 85027; 86593; 86780; C9803-CS; Q0162; U0003; U0005